=== PATIENT | male | born 1960 | race Caucasian/White ===

== ENCOUNTER 2020-08-03 07:28 | Outpatient (REF) | payer OTHER, SELFPAY ==
[2020-08-03 11:49] LABS: Alanine Aminotransferase 31 U/L (0-40); Albumin Level 4.6 g/dL (3.5-5.0); Alkaline Phosphatase 46 U/L (39-117); Anion Gap 11 (12-20); Aspartate Amino Transferase 26 U/L (5-37); Bilirubin Total 0.4 mg/dL (0.0-1.0); Blood Urea Nitrogen 14 mg/dL (9-16); Calcium 9.1 mg/dL (8.4-10.2); Carbon Dioxide 26 mmol/L (22-29); Chloride 107 mmol/L (96-108); Cholesterol 163 mg/dL; Estimated Glomerular Filt Rate > 60; Glucose Fasting 90 mg/dL (60-99); HDL Cholesterol 54 mg/dL; LDL Cholesterol Calculated 97 mg/dl; Potassium 4.6 mmol/l (3.3-5.1); Sodium 139 mmol/L (135-145); Triglycerides 64 mg/dL
[2020-08-03 12:12] LABS: Prostate Specific Antigen Scr 0.42 ng/mL (<0.05-4.0); TSH reflex Free T4 1.73 mIU/mL (0.32-4.0); Vitamin D 25-OH Total 38.9 ng/mL (>30)
== END 2020-08-03 07:29 | disposition home or self-care (01) ==
LOC: HO.HMGCLDS 07:28
PROVIDERS: PCP Nurse Practitioner Family; Visit Provider Nurse Practitioner Family
DX: Z12.5 Encounter for screening for malignant neoplasm of prostate (principal); E78.5 Hyperlipidemia, unspecified; I10 Essential (primary) hypertension; E55.9 Vitamin D deficiency, unspecified
CPT/HCPCS: 80053; 80061; 82306; 84153; 84443

== ENCOUNTER 2020-12-26 14:30 | Outpatient (REF) | payer OTHER, SELFPAY ==
--- NOTE | ~2020-12-26 | XR_ITS ---
EXAMINATION: XR HIP, RIGHT CLINICAL INFORMATION: Pain right hip. COMPARISON: None TECHNIQUE: Two views of the right hip. FINDINGS: There is loss of right hip joint space without any bony erosive changes. No visible fracture, dislocation or subluxation seen. No soft tissue abnormality. XR/XR hip RT min 2V IMPRESSION: Unremarkable right hip exam.
== END 2020-12-26 14:31 | disposition home or self-care (01) ==
LOC: HO.HMGCX 14:30
PROVIDERS: PCP Nurse Practitioner Family; Visit Provider Nurse Practitioner Family
DX: M25.551 Pain in right hip (principal)
CPT/HCPCS: 73502

== ENCOUNTER → 2021-01-09 10:23 | Outpatient (BNVA) | payer OTHER, SELFPAY | PROVIDERS: PCP Nurse Practitioner Family; Visit Provider Orthopaedic Surgery ==

== ENCOUNTER 2021-02-01 14:00 | Outpatient (RCR) | payer OTHER, SELFPAY | END 2021-02-19 12:44 | disposition other institution (70) | LOC: HO.PTWFD 14:00 | PROVIDERS: Visit Provider Nurse Practitioner Family | DX: M25.551 Pain in right hip (principal) | CPT/HCPCS: 97110; 97140; 97161; 97535 ==

== ENCOUNTER 2021-10-15 08:25 | Outpatient (REF) | payer OTHER, SELFPAY ==
[2021-10-15 12:00] LABS: COVID-19 Test Negative (Negative)
== END 2021-10-15 08:26 | disposition home or self-care (01) ==
LOC: HO.LAB 08:25
PROVIDERS: Visit Provider Internal Medicine
DX: Z20.822 Contact with and (suspected) exposure to COVID-19 (principal)
CPT/HCPCS: 36415; 87635; C9803

== ENCOUNTER 2022-01-23 11:09 | Outpatient (REF) | payer OTHER, SELFPAY ==
--- NOTE | ~2022-01-23 | XR_ITS ---
EXAMINATION: XR LUMBOSACRAL SPINE CLINICAL INFORMATION: Low back pain COMPARISON: None TECHNIQUE: Three views of the lumbosacral spine. FINDINGS: Bone alignment is normal. No fracture or dislocation is seen. There is degenerative spondylosis of the lower thoracic and upper lumbar spine. There is lower lumbar spine facet arthritis. Disc spaces are normal. Paraspinal soft tissues are normal. XR/XR lumbar spine 2-3V IMPRESSION: Degenerative changes.
--- NOTE | ~2022-01-23 | XR_ITS ---
EXAMINATION: XR SACROILIAC JOINTS CLINICAL INFORMATION: Sacrococcygeal disorders COMPARISON: None TECHNIQUE: 3 views of the sacroiliac joints FINDINGS: No fracture or dislocation. The sacroiliac joints are symmetric. No abnormal sclerosis. No fusion. The hips are well aligned. The visualized lumbar spine is appropriately aligned with small endplate osteophytes. XR/XR sacroiliac joint 1-2V IMPRESSION: Unremarkable appearance of the sacroiliac joints.
== END 2022-01-23 11:10 | disposition home or self-care (01) ==
LOC: HO.HMGCX 11:09
PROVIDERS: PCP Nurse Practitioner Family; Visit Provider Nurse Practitioner Family
DX: M53.3 Sacrococcygeal disorders, not elsewhere classified (principal); G89.29 Other chronic pain; M54.50 Low back pain, unspecified
CPT/HCPCS: 72100; 72200

== ENCOUNTER 2022-02-27 15:49 | Outpatient (REF) | payer OTHER, SELFPAY ==
--- NOTE | ~2022-02-27 | MR_ITS ---
EXAMINATION: MR LUMBAR SPINE WITHOUT CONTRAST CLINICAL INFORMATION: Right flank pain. Bilateral anterior thigh pain. COMPARISON: Lumbar spine radiographs 01/23/2022. TECHNIQUE: MRI of the lumbar spine was obtained using routine sequences without contrast. FINDINGS: Alignment is normal. Vertebral heights are preserved. No acute bone marrow signal changes. There is disc desiccation at multiple levels without substantial loss of intervertebral disc height. The tip of the conus medullaris is located at L1. No mass effect on the conus. Visualized distal cord signal intensity is normal. At L1-L2 there is a slightly bulging disc. No canal stenosis. No mass effect on the traversing or foraminal nerve roots. At L2-L3 there is a slightly bulging disc. Bilateral facet degenerative change. No canal stenosis. No mass effect on the traversing or foraminal nerve roots. At L3-L4 the annular contour is normal. No canal stenosis. No mass effect on the traversing or foraminal nerve roots. At L4-L5 there is a diffusely bulging disc. Bilateral facet degenerative change. No canal stenosis. Partial effacement of the perineural fat with no more than mild mass effect on both L4 foraminal nerve roots. At L5-S1 the annular contour is normal. No canal stenosis. No mass effect on the traversing or foraminal nerve roots. Limited visualization of the retroperitoneal anatomy reveals no abnormal finding. Psoas and paraspinal muscle groups are symmetric. MR/MR lumbar spine wo con IMPRESSION: There is mild disc degeneration at multiple levels within the lumbar spine. A bulging disc in conjunction with facet degenerative change at L4-L5 causes no more than mild mass effect on both L4 foraminal nerve roots. Otherwise no substantial mass effect on the traversing or foraminal nerve roots elsewhere within the lumbar spine. No canal stenosis.
--- NOTE | ~2022-02-27 | XR_ITS ---
EXAMINATION: XR BILATERAL HIPS WITH AP PELVIS CLINICAL INFORMATION: Bilateral hip pain. COMPARISON: Previous right hip x-ray December 2020 TECHNIQUE: AP view of the pelvis and 2 views of each hip were obtained. FINDINGS: Bone alignment is normal. No fracture or dislocation is seen. There is mild arthritis at both hip joints with small acetabular osteophytes. Bones of the pelvis are normal. Soft tissues are normal. No foreign body is seen. XR/XR hip BI w PEL1V IMPRESSION: Mild degenerative changes at the hip joints.
== END 2022-02-27 15:50 | disposition home or self-care (01) ==
LOC: HO.MRI 15:49
PROVIDERS: Absent Provider Nurse Practitioner Women's Health; PCP Nurse Practitioner Family; Visit Provider Nurse Practitioner Women's Health
DX: M54.16 Radiculopathy, lumbar region (principal); M25.551 Pain in right hip
CPT/HCPCS: 72148; 73521

== ENCOUNTER 2022-11-26 16:43 | Outpatient (REF) | payer OTHER, SELFPAY ==
--- NOTE | ~2022-11-26 | XR_ITS ---
EXAMINATION: XR ANKLE, RIGHT CLINICAL INFORMATION: Ankle sprain COMPARISON: None TECHNIQUE: AP, lateral, and mortise views of the right ankle. FINDINGS: There is a well-corticated density seen at the base of the fifth metatarsal which may be secondary to chronic injury at the the peroneus brevis tendon insertion at the fifth metatarsal. No acute fractures are seen. The ankle mortise is stable. Joint spaces are maintained. No joint effusion. XR/XR ankle RT min 3V IMPRESSION: No evidence of an acute injury. Chronic changes as described above.
== END 2022-11-26 16:44 | disposition home or self-care (01) ==
LOC: HO.HMGCX 16:43
PROVIDERS: PCP Nurse Practitioner Family; Visit Provider Internal Medicine
DX: S93.401A Sprain of unspecified ligament of right ankle, initial encounter (principal)
CPT/HCPCS: 73610

== ENCOUNTER 2023-03-18 14:07 | Outpatient (REF) | payer OTHER, SELFPAY ==
--- NOTE | ~2023-03-18 | MR_ITS ---
EXAMINATION: MRI ANKLE WITH CONTRAST, RIGHT CLINICAL INDICATION: Sprain of unspecified ligament of right ankle, initial encounter. Right ankle pain. Burning. S93.401A COMPARISON: Radiographs dated 11/26/2022 TECHNIQUE: Multiplanar MR imaging was obtained through the right ankle without contrast material on a 1.5 Anika magnet. FINDINGS: ACHILLES TENDON: Normal. OTHER TENDONS: A longitudinal tear of the peroneus brevis measures approximately 8 cm in length, extending from the lateral malleolus to the insertion on the 5th metatarsal base with severe distal tendinosis and wsfa-sj-koxhzatx tenosynovitis. A torn tendon flap fragment is evident at the level of the lateral malleolus. This tear involves at least one-third of the tendon cross-section. Peroneus longus is intact. Extensor and medial flexor tendons are normal. LIGAMENTS: There is mild thickening the calcaneofibular ligament, potentially due to a prior sprain. No discrete tears. Anterior talofibular, posterior talofibular, and distal tibiofibular ligaments are intact. The anterior and posterior tibiofibular ligaments appear thickened with subtle cortical irregularity at the fibular attachments, potentially the result of an old injury. No acute tibiofibular ligament tears. Deltoid and spring ligaments are normal. BONE AND ARTICULAR CARTILAGE: Small marginal osteophytes the talocrural joint. No osteochondral injuries. Articular cartilage appears relatively well-preserved at the talocrural, subtalar, and Chopart joints. No fracture or malalignment. No stress reactions. JOINT FLUID AND SOFT TISSUES: Mild subcutaneous edema at the ankle and hindfoot is most pronounced laterally. No joint effusions. PLANTAR FASCIA: Normal. SINUS TARSI AND TARSAL TUNNEL: Normal. MR/MR ankle RT wo con IMPRESSION: 1. Longitudinal tear of the peroneus brevis tendon with severe tendinosis and ssch-gt-gqrejqse tenosynovitis. 2. Mild thickening of the calcaneofibular ligament, potentially due to a prior sprain. No tears. 3. Minimal talocrural osteoarthritis.
== END 2023-03-18 14:08 | disposition home or self-care (01) ==
LOC: HO.MRI 14:07
PROVIDERS: PCP Nurse Practitioner Family; Visit Provider Nurse Practitioner Family
DX: S93.401A Sprain of unspecified ligament of right ankle, initial encounter (principal)
CPT/HCPCS: 73721

== ENCOUNTER 2023-06-02 16:33 | Outpatient (REF) | payer OTHER, SELFPAY ==
[2023-06-02 16:44] LABS: MANUAL DIFF FLAG NO
[2023-06-02 17:51] LABS: Basophils Percent Auto 0.6 % (0-2); Eosinophils Absolute Auto 0.1 X10*3/uL (0.0-0.4); Eosinophils Percent Auto 1.6 % (0-4); Hematocrit 42.2 % (42.0-52.0); Hemoglobin 14.1 g/dl (14.0-18.0); Imm Gran Abs Auto 0.06 X10*3/uL (0.00-0.03); Lymphocytes Absolute Auto 1.9 X10*3/uL (1.2-4.9); Lymphocytes Percent Auto 30.5 % (20-40); Mean Corpuscular HGB Conc 33.4 g/dl (31.0-36.0); Mean Corpuscular Hemoglobin 29.4 pg (27.0-33.0); Mean Corpuscular Volume 88.1 fL (80.0-98.0); Mean Platelet Volume 10.4 fL (9.4-12.4); Monocytes Absolute Auto 0.8 X10*3/uL (0.1-1.2); Monocytes Percent Auto 12.6 % (2-11); Neutrophils Absolute Auto 3.3 x10*3/uL (2.0-8.3); Neutrophils Percent Auto 53.7 % (45-73); Platelet Count 229 X10*3/uL (160-400); Red Blood Count 4.79 X10*6/uL (4.60-5.80); White Blood Count 6.2 X10*3/uL (4.8-10.8)
[2023-06-02 18:33] LABS: Alanine Aminotransferase 37 U/L (0-40); Albumin Level 4.7 g/dL (3.5-5.0); Alkaline Phosphatase 56 U/L (39-117); Anion Gap 12 (12-20); Aspartate Amino Transferase 31 U/L (5-37); Bilirubin Total 0.5 mg/dL (0.0-1.0); Blood Urea Nitrogen 13 mg/dL (9-16); Calcium 9.6 mg/dL (8.4-10.2); Carbon Dioxide 26 mmol/L (22-29); Chloride 106 mmol/L (96-108); Cholesterol 214 mg/dL; Estimated Glomerular Filt Rate > 60; Glucose Fasting 85 mg/dL (60-99); HDL Cholesterol 58 mg/dL; LDL Cholesterol Calculated 131 mg/dl; Potassium 4.1 mmol/L (3.3-5.1); Sodium 140 mmol/L (135-145); Total Protein 7.6 g/dL (6.5-8.0); Triglycerides 125 mg/dL
[2023-06-02 18:38] LABS: Appearance Urine Clear; Color Urine Yellow; Glucose Urine UA Negative (Negative); Leukocyte Esterase Urine Negative (Negative); Nitrite Urine Negative (Negative); PH 5.5 (5.0-9.0); Specific Gravity - Urine 1.025 (1.005-1.025); Urine Blood Negative (Negative); Urine Ketones Trace mg/dL (Negative); Urine Protein Trace mg/dL (Neg-Trace)
[2023-06-02 18:45] LABS: Prostate Specific Antigen Scr 0.54 ng/mL (<0.05-4.0)
[2023-06-02 18:47] LABS: TSH reflex Free T4 1.87 uIU/mL (0.32-4.0)
== END 2023-06-02 16:34 | disposition home or self-care (01) ==
LOC: HO.LAB 16:33
PROVIDERS: PCP Nurse Practitioner Family; Visit Provider Nurse Practitioner Family
DX: Z00.00 Encounter for general adult medical examination without abnormal findings (principal); Z12.5 Encounter for screening for malignant neoplasm of prostate; Z13.220 Encounter for screening for lipoid disorders; Z13.29 Encounter for screening for other suspected endocrine disorder; Z20.2 Contact with and (suspected) exposure to infections with a predominantly sexual mode of transmission
CPT/HCPCS: 36415; 80053; 80061; 81003; 84153; 84443; 85025

== ENCOUNTER 2023-06-05 15:54 | Outpatient (AMB) | payer OTHER, SELFPAY ==
[2023-06-05 16:03] VITALS: BP 120/74; PULSE 66; O2SAT 96; BMI 32.1
--- NOTE | 2023-06-05 16:03 | MHC.PC.OV ---
Vital Signs 06/05/23 16:03 Height 5 ft 11 in Weight 230 lb 8 oz BMI 32.1 BP 120/74 Blood Pressure Location Rt brachial Position Sitting Pulse 66 Pulse Source Pulse Oximeter Pulse Oximetry (%) 96 Oxygen Delivery Method Room Air Intake Visit Reasons: PE Allergies SEASONAL ALLERGIES Allergy (Mild, Uncoded 06/05/23 16:05) SNEEZING,ITCHY EYES Tobacco use date assessed: 06/05/23 Dental Screening Dental Screen Date: 06/05/23 Did you have a dental visit in the last 12 months?: Yes Did you have a dental problem in the last 6 months where you did not have access to dental care?: No Was dental information given to patient?: Patient has dentist HPI PE HPI Details Pt is here for a PE. Labs were already performed. PSA is up to date. Colon screen is up to date. reports left shoulder pain, limited mobility. [facility] Surgical History History of colonoscopy History of knee surgery Family History Father HTN (hypertension) CVD (cardiovascular disease) Diabetes mellitus Cancer Substance use disorder Mother Diabetes mellitus CVD (cardiovascular disease) HTN (hypertension) Cancer Other Mental health disorder Social History (Reviewed 02/24/23 @ 17:19 by Josh Bazan [facility]) Housing: House Alcohol intake: current Alcohol intake frequency: a few times a month Patient Tobacco Use Status: Never used Tobacco e-Cigarette/Vaping Use: Never Used Second Hand Smoke Exposure: No service: Yes Current occupational status: employed 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 Adrien Olguin, Mable Jason, Suman Ovalle and colleagues, with an educational tom from [employer]. Review of Systems Const Denies chills and Denies fever(s) Eyes Denies blurry vision ENT Denies vertigo, Denies dizziness and Denies sore throat Card Denies chest pain at rest, Denies chest pain with activity, Denies diaphoresis, Denies dyspnea and Denies dyspnea on exertion Resp Denies cough, Denies dyspnea, Denies dyspnea on exertion and Denies wheezing GI Denies abdominal pain, Denies melena, Denies hematochezia, Denies constipation, Denies diarrhea and Denies loose stools Denies hematuria Musc Denies numbness and Denies tingling Skin/Breast Denies lesions Neuro Denies vertigo, Denies dizziness, Denies numbness and Denies tingling Psych Denies anxiety, Denies depression, Denies homicidal ideation, Denies suicidal ideation and Denies other (substance abuse) Aller/Immun Denies wheezing Physical exam (Primary Care) Vital Signs: Last Vital Signs Pulse 66 06/05/23 16:03 BP 120/74 06/05/23 16:03 Pulse Ox 96 06/05/23 16:03 Oxygen Delivery Method Room Air 06/05/23 16:03 BMI result Body Mass Index 32.1 Tobacco/Smoking Status: Tobacco use Status Tobacco use date assessed 06/05/23 06/05/23 16:09 Patient Tobacco Use Status Never used Tobacco 06/05/23 16:09 e-Cigarette/Vaping Use Never Used 06/05/23 16:09 Thrive Assessment: Date of Thrive Assessment Date Thrive assessed 01/23/22 06/05/23 16:09 Const General: cooperative Nutritional Appearance: obese Orientation/consciousness: patient oriented x3 HENMT Head: Yes normal to inspection, Yes normocephalic and Yes atraumatic Ears: TM's normal bilaterally Eyes General: appearance normal, both eyes and all related structures Alignment and Position: alignment normal and position normal Neck Neck: Yes normal visual inspection and Yes no lymphadenopathy Thyroid: Thyroid normal Resp Effort & Inspection: normal respiratory effort Auscultation: clear to auscultation bilaterally Cardio Rate: regular rate Rhythm: regular rhythm Heart sounds: S1 normal heart sound present, S2 normal heart sound present and no murmurs GI Palpation (GI): Soft to palpation and nontender Auscultation: normal bowel sounds Other: raza: no nodules, did not feel enlarged, palpable central groove, smooth Male General Exam: Yes normal external exam Penis: normal penis Scrotum: scrotum normal, testes descended bilaterally and no inguinal hernias Testes: no testicular mass Skin Rashes: no rashes Neuro General: patient oriented x3, moves all extremities, no focal motor deficits and deep tendon reflexes 2+ bilaterally Romberg Test: Negative Extrem Other: + neers, +puente, + jobes, + drop arm test (left shoulder) Psych Appearance: grossly normal Mental Status: mental status grossly normal Speech and movement: Normal speech and movement present Affect: normal affect Attitude: cooperative Thought process: Normal thought process present Thought content: Normal thought content present Insight: Good insight present (Psych) Judgement: Good judgement present (Psych) Assessment and Plan Assessment & Plan (1) Physical exam: Code(s): Z00.00 - Encounter for general adult medical examination without abnormal findings (2) Left shoulder pain: Code(s): M25.512 - Pain in left shoulder Plan The patient agreed to the use of a medical chief technician for this encounter. Scribed for MAGALI Caceres- by Jeri Booth medical chief technician, on 06/05/2023 at 16:40 EST. Orders: Orders XR shoulder LT min 2V Today M25.512 - Pain in left shoulder AMB EKG-In Office Today Z00.00 - Encounter for general adult medical examination without abnormal findings Referrals Orthopedics Referral M25.512 - Pain in left shoulder Medications: Changed From simvastatin 5 mg PO DAILY 90 days 90 tabs 2RF To simvastatin 10 mg PO DAILY 90 tabs 2RF 90 days Coding Level of Care Code Est Pt Prev Care 40-64y(08026) Diagnoses Physical exam Z00.00 Left shoulder pain M25.512
== END 2023-06-05 17:21 | disposition home or self-care (01) ==
PROVIDERS: PCP Nurse Practitioner Family; Visit Provider Nurse Practitioner Family
DX: Z00.00 Encounter for general adult medical examination without abnormal findings (principal); M25.512 Pain in left shoulder
CPT/HCPCS: 99396

== ENCOUNTER 2023-06-10 15:50 | Outpatient (REF) | payer OTHER, SELFPAY ==
--- NOTE | ~2023-06-10 | XR_ITS ---
EXAMINATION: XR SHOULDER, LEFT CLINICAL INFORMATION: Left shoulder pain COMPARISON: None available. TECHNIQUE: AP external rotation, Grashey, scapular Y, and axillary views of the left shoulder. FINDINGS: Degenerative type changes identified acromioclavicular and glenohumeral joints. No fracture, dislocation or abnormal calcifications. Visualized lung and ribs are unremarkable. XR/XR shoulder LT min 2V IMPRESSION: Degenerative changes. No acute bony pathology.
== END 2023-06-10 15:51 | disposition home or self-care (01) ==
LOC: HO.HMGCX 15:50
PROVIDERS: PCP Nurse Practitioner Family; Visit Provider Nurse Practitioner Family
DX: M25.512 Pain in left shoulder (principal)
CPT/HCPCS: 73030

== ENCOUNTER 2023-06-27 08:18 | Outpatient (AMB) | payer OTHER, SELFPAY ==
[2023-06-27 08:27] VITALS: BMI 32.1
--- NOTE | 2023-06-27 08:27 | A.OFFVIS_ITS ---
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 The patient states that he 1st into shoulder approximately 2 years ago. He was lifting a heavy object when he felt acute onset of pain. Since that time he has had difficulty lifting his left hand above shoulder height. He has done physical therapy for 12 weeks over the last 6 months which aggravated his pain. He has also tried Tylenol and anti- inflammatory medicines which gave him minimal relief. He has had injections in the past which gave him no relief. Allergies SEASONAL ALLERGIES Allergy (Mild, Uncoded 06/27/23 08:34) SNEEZING,ITCHY EYES Medication List - Last Reviewed 06/27/23 by SARA Goodwin amlodipine 10 mg PO DAILY simvastatin 10 mg PO DAILY 90 days zinc gluconate 30 mg PO DAILY PFSH Surgical History History of colonoscopy History of knee surgery Family History Father HTN (hypertension) CVD (cardiovascular disease) Diabetes mellitus Cancer Substance use disorder Mother Diabetes mellitus CVD (cardiovascular disease) HTN (hypertension) Cancer Other Mental health disorder Social History (Updated 06/27/23 @ 08:35 by SARA Goodwin) Housing: House Alcohol intake: current Alcohol intake frequency: a few times a month Patient Tobacco Use Status: Never used Tobacco e-Cigarette/Vaping Use: Never Used Second Hand Smoke Exposure: No service: Yes Current occupational status: employed 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 Current occupational exposures/hazards: No Cognitive needs: No Hearing needs: No Vision needs: No Physical Exam Vital Signs: BMI result Body Mass Index 32.1 Const Other: Well-nourished well-developed very friendly male awake alert and oriented x3 in no acute distress Extrem Other: Bilateral upper extremity examination shows good capillary refill, no skin lesions noted, normal sensation light touch Left shoulder examination shows decreased active range of motion but almost full passive range of motion when compared to his right shoulder, 4/5 strength with supraspinatus testing, positive impingement signs, tenderness over his acromioclavicular joint, no instability Results Reviewed Results Reviewed: X-rays of the patient's left shoulder show severe acromioclavicular joint narrowing, a type 3 acromion, no acute bony abnormalities Assessment & Plan Assessment & Plan (1) Complete rotator cuff tear of left shoulder: Code(s): M75.122 - Complete rotator cuff tear or rupture of left shoulder, not specified as traumatic Plan: Mr. Mosley presents with progressively worsening left shoulder pain and weakness most likely due to full-thickness rotator cuff tearing. Thus, I will send the patient for an MRI of his left shoulder to further evaluate the status of his rotator cuff tendons. If he does have a full-thickness tear I will recommend surgical repair to optimize his future functional level. I will contact him by phone once the MRI is completed. He will continue with his home stretching program in the meantime to prevent stiffness. Feel free to call me at any time should questions regarding his orthopedic management arise. Thank you very much for asking me to see this very kind gentleman. I spent 22 minutes in reviewing the patient's records and imaging studies, seeing the patient and documenting in the medical record. Orders: Orders MR shoulder LT wo con Today M75.122 - Complete rotator cuff tear or rupture of left shoulder, not specified as traumatic Coding Level of Care Code New Pt Level 2 (90626) Diagnoses Complete rotator cuff tear of left shoulder M75.122
--- NOTE | 2023-06-27 08:27 | MHC.OFFVIS ---
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 Mosley is a 62-year-old wocig-zgga-jlhysjsr male who presents with complaints of progressively worsening left shoulder pain and weakness. The patient states that he injury shoulder approximately 2 years ago when he was lifting a heavy object. Patient had acute onset of pain along the lateral aspect of his left shoulder. Since that time he has had difficulty lifting his left hand above shoulder height. He has done physical therapy for 12 weeks over the last 6 months which aggravated his pain. He has also tried Tylenol and anti-inflammatory medicines which gave him minimal relief. The patient has had cortisone injections in the past which gave him no relief. Allergies SEASONAL ALLERGIES Allergy (Mild, Uncoded 06/27/23 08:34) SNEEZING,ITCHY EYES Medication List - Last Reviewed 06/27/23 by SARA Goodwin amlodipine 10 mg PO DAILY simvastatin 10 mg PO DAILY 90 days zinc gluconate 30 mg PO DAILY PFSH Surgical History History of colonoscopy History of knee surgery Family History Father HTN (hypertension) CVD (cardiovascular disease) Diabetes mellitus Cancer Substance use disorder Mother Diabetes mellitus CVD (cardiovascular disease) HTN (hypertension) Cancer Other Mental health disorder Social History (Updated 06/27/23 @ 08:35 by SARA Goodwin) Housing: House Alcohol intake: current Alcohol intake frequency: a few times a month Patient Tobacco Use Status: Never used Tobacco e-Cigarette/Vaping Use: Never Used Second Hand Smoke Exposure: No service: Yes Current occupational status: employed 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 Current occupational exposures/hazards: No Cognitive needs: No Hearing needs: No Vision needs: No Physical Exam Vital Signs: BMI result Body Mass Index 32.1 Const Other: Well-nourished well-developed very friendly male awake alert and oriented x3 in no acute distress Extrem Other: Bilateral upper extremity examination shows good capillary refill, no skin lesions noted, normal sensation light touch Left shoulder examination shows decreased active range of motion but almost full passive range of motion when compared to his right shoulder, 4/5 strength with supraspinatus testing, positive impingement signs, tenderness over his acromioclavicular joint Results Reviewed Results Reviewed: X-rays of the patient's left shoulder show severe acromioclavicular joint narrowing, type 3 acromion, no acute bony abnormalities Assessment & Plan Assessment & Plan (1) Impingement syndrome of left shoulder: Code(s): M75.42 - Impingement syndrome of left shoulder Plan: Mr. Mosley presents with left shoulder pain and weakness most likely due to a full-thickness rotator cuff tear. Thus, I will send the patient for MRI of his left shoulder for further evaluation. If he does have a full-thickness tear I will recommend surgical repair to optimize his future functional level. The patient will continue with gentle range of motion exercises in the meantime to prevent stiffness. I will contact him by phone once the MRI results are available. Feel free to call me at any time should questions regarding his orthopedic management arise. Thank you very much for asking me to see this very friendly gentleman. I spent 22 minutes in reviewing the patient's records and imaging studies, seeing the patient and documenting in the medical record. Orders: Orders MR shoulder LT wo con Today M75.122 - Complete rotator cuff tear or rupture of left shoulder, not specified as traumatic Coding Level of Care Code New Pt Level 2 (42896) Diagnoses Impingement syndrome of left shoulder M75.42
== END 2023-06-27 09:05 | disposition home or self-care (01) ==
PROVIDERS: PCP Nurse Practitioner Family; Visit Provider Orthopaedic Surgery
DX: M75.122 Complete rotator cuff tear or rupture of left shoulder, not specified as traumatic (principal); M75.42 Impingement syndrome of left shoulder
CPT/HCPCS: 99214

== ENCOUNTER → 2023-06-27 08:18 | Outpatient (BNVA) | payer OTHER, SELFPAY | PROVIDERS: PCP Nurse Practitioner Family; Visit Provider Orthopaedic Surgery ==

== ENCOUNTER 2023-06-28 14:33 | Outpatient (REF) | payer OTHER, SELFPAY ==
--- NOTE | ~2023-06-28 | MR_ITS ---
EXAMINATION: MRI LEFT SHOULDER WITHOUT CONTRAST CLINICAL INFORMATION: Complete rotator cuff tear or rupture. Left shoulder pain, severe. Decreased range of motion. COMPARISON: Radiograph dated 06/10/2023. TECHNIQUE: MR images of the shoulder were obtained on a 1.5 Anika high-field strength scanner without intravenous contrast material. FINDINGS: ROTATOR CUFF: Mild supraspinatus, infraspinatus, and subscapularis tendinosis. There is a small 3 mm focus of low signal intensity at the bursal-sided fibers of the supraspinatus tendon at the insertion, consistent with calcific tendinitis. Undersurface fraying is present at the subscapularis tendon insertion without a discrete tear. No muscle atrophy or fatty infiltration. BICEPS: Normal. CORACOACROMIAL ARCH: The undersurface of the acromion is curved with no subacromial spur. Moderate acromioclavicular osteoarthritis. No significant subacromial subdeltoid bursal fluid. LABRUM/CAPSULE: Glenoid labrum is diminutive posteriorly and inferiorly, likely due to a combination of developmental variation and superimposed labral degeneration. Joint capsule is intact. GLENOHUMERAL JOINT/MARROW: No fracture or malalignment. Mild chondral thinning along the glenoid rim posteriorly and inferiorly with minimal subchondral edema. No fracture or malalignment. Subcortical cystic change and cortical irregularity are evident at the lesser tuberosity along its cephalad margin, likely reactive to the underlying subscapularis tendinopathy. Additional cortical irregularity is present at the greater tuberosity posteriorly. MR/MR shoulder LT wo con IMPRESSION: 1. Mild rotator cuff tendinosis with a small 3 mm focus of calcific tendinitis at the supraspinatus tendon insertion. No rotator cuff tears. 2. Moderate acromioclavicular and mild glenohumeral osteoarthritis.
== END 2023-06-28 14:34 | disposition home or self-care (01) ==
LOC: HO.MRI 14:33
PROVIDERS: Visit Provider Orthopaedic Surgery
DX: M75.122 Complete rotator cuff tear or rupture of left shoulder, not specified as traumatic (principal)
CPT/HCPCS: 73221

== ENCOUNTER 2023-08-25 09:50 | Outpatient (REF) | payer OTHER, SELFPAY ==
[2023-08-25 11:13] LABS: Anion Gap 13 (12-20); Carbon Dioxide 24 mmol/L (22-29); Chloride 108 mmol/L (96-108); Potassium 4.8 mmol/L (3.3-5.1); Sodium 140 mmol/L (135-145)
== END 2023-08-25 09:51 | disposition home or self-care (01) ==
LOC: HO.LAB 09:50
PROVIDERS: PCP Nurse Practitioner Family; Visit Provider Orthopaedic Surgery
DX: I10 Essential (primary) hypertension (principal)
CPT/HCPCS: 36415; 80051

== ENCOUNTER 2023-12-23 15:09 | Outpatient (AMB) | payer OTHER, SELFPAY ==
[2023-12-23 15:10] VITALS: BMI 32.1
--- NOTE | 2023-12-23 15:10 | A.OFFVIS_ITS ---
Intake Vital Signs 12/23/23 15:10 Height 5 ft 11 in Weight 230 lb BMI 32.1 Intake Visit Reasons: OV left shoulder injury Intake Note: Deep is a 63 year old male who presents with Left shoulder pain from and injury on 04/26/2022. The patient describes his pain as sharp in nature. He reports mild weakness when lifting his left hand above shoulder height. Has had injections in the past which gave him fairly good relief. He would like to hold off on surgery for as long as possible. He has done physical therapy exercises which aggravated his pain. He has also tried Tylenol and anti-inflammatory medicines which gave him minimal relief. Allergies SEASONAL ALLERGIES Allergy (Mild, Uncoded 06/27/23 08:34) SNEEZING,ITCHY EYES Medication List - Last Reconciled 12/23/23 by Deion Mcdaniel MD amlodipine 10 mg PO DAILY 90 days simvastatin 10 mg PO DAILY 90 days zinc gluconate 30 mg PO DAILY PFSH Surgical History History of colonoscopy History of knee surgery Family History Father HTN (hypertension) CVD (cardiovascular disease) Diabetes mellitus Cancer Substance use disorder Mother Diabetes mellitus CVD (cardiovascular disease) HTN (hypertension) Cancer Other Mental health disorder Social History Housing: House Alcohol intake: current Alcohol intake frequency: a few times a month Patient Tobacco Use Status: Never used Tobacco e-Cigarette/Vaping Use: Never Used Second Hand Smoke Exposure: No service: Yes Current occupational status: employed 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 Current occupational exposures/hazards: No Cognitive needs: No Hearing needs: No Vision needs: No Physical Exam Vital Signs: BMI result Body Mass Index 32.1 Const Other: Well-nourished well-developed very friendly male awake alert and oriented x3 in no acute distress Extrem Other: Bilateral upper extremity examination shows good capillary refill, no skin lesions noted, normal sensation light touch Left shoulder examination shows slightly decreased range of motion when compared to his right shoulder, 4+ out of 5 strength with supraspinatus testing, positive impingement signs, tenderness over his acromioclavicular joint, no instability Office Procedures Joint Injection/Drain Joint Injection/Drain Primary Site: left shoulder Prep: site was prepped using aseptic technique Injected: 40 mg of, DepoMedrol and 1% plain lidocaine Procedure: The patient tolerated the procedure well Coding 18641 - Large joint Procedure code (CPT) selection complete Assessment & Plan Assessment & Plan (1) Impingement syndrome of left shoulder: Code(s): M75.42 - Impingement syndrome of left shoulder Plan Mr. Mosley presents with left shoulder pain due to impingement syndrome, acromioclavicular joint arthritis and rotator cuff tendinosis versus a small tear. I had a lengthy discussion with the patient regarding the treatment options. The risks and benefits of a left shoulder cortisone injection were discussed at length with the patient. The patient wished to proceed with the injection. He tolerated the injection well. He will continue with his activity modifications. He will follow up with me on an as-needed basis should his symptoms not plateau at an unacceptable level over the next few months. If he fails continued non operative treatments we will further discuss the risks and benefits of left shoulder surgery. Feel free to call me at any time should questions regarding his orthopedic management arise. I spent 22 minutes in reviewing the patient's records and imaging studies, seeing the patient and documenting in the medical record. Orders: Orders AMB Joint Injection/Aspiration Today M75.42 - Impingement syndrome of left shoulder Coding Level of Care Code Est Pt Level 2 (34908) Diagnoses Impingement syndrome of left shoulder M75.42 CPT Codes Coding - 54518 Large joint: 61513 - Large joint ([id number])
== END 2023-12-23 15:38 | disposition home or self-care (01) ==
PROVIDERS: PCP Nurse Practitioner Family; Visit Provider Orthopaedic Surgery
DX: M75.42 Impingement syndrome of left shoulder (principal)
CPT/HCPCS: 20610; 99213

== ENCOUNTER → 2023-12-23 15:09 | Outpatient (BNVA) | payer OTHER, SELFPAY | PROVIDERS: PCP Nurse Practitioner Family; Visit Provider Orthopaedic Surgery | DX: M75.42 Impingement syndrome of left shoulder (principal) | CPT/HCPCS: 20610; J1020 ==

== ENCOUNTER 2024-01-21 16:00 | Outpatient (RCR) | payer OTHER, SELFPAY | END 2024-04-28 12:39 | disposition home or self-care (01) | LOC: HO.PT 16:00 | PROVIDERS: PCP Nurse Practitioner Family; Visit Provider Orthopaedic Surgery | DX: Z98.890 Other specified postprocedural states (principal) | CPT/HCPCS: 97110; 97112; 97140; 97161; 97530 ==

== ENCOUNTER 2024-03-23 14:17 | Outpatient (AMB) | payer OTHER, SELFPAY ==
[2024-03-23 14:20] VITALS: BMI 32.1
--- NOTE | 2024-03-23 14:20 | A.OFFVIS_ITS ---
Vital Signs 03/23/24 14:20 Height 5 ft 11 in Weight 230 lb BMI 32.1 Intake Visit Reasons: ov- Left shoulder injury DOI 04/26/2022 Intake Note: Deep is a 63 year old Right hand dominant male who presents with complaints of left shoulder pain. He did have a cortisone injection given into his left shoulder earlier this year. He got fairly good relief from that injection. He continues with his home exercise program. He would like to hold off on surgery for now. He denies any weakness. He has tried Tylenol and anti-inflammatory medicines which gave him minimal relief. Allergies SEASONAL ALLERGIES Allergy (Mild, Uncoded 03/23/24 14:25) SNEEZING,ITCHY EYES Medication List - Last Reconciled 03/24/24 by Deion Mcdaniel MD amlodipine 10 mg PO DAILY 90 days simvastatin 10 mg PO DAILY 90 days zinc gluconate 30 mg PO DAILY PFS Surgical History History of colonoscopy History of knee surgery Family History Father HTN (hypertension) CVD (cardiovascular disease) Diabetes mellitus Cancer Substance use disorder Mother Diabetes mellitus CVD (cardiovascular disease) HTN (hypertension) Cancer Other Mental health disorder Social History Housing: House Alcohol intake: current Alcohol intake frequency: a few times a month Patient Tobacco Use Status: Never used Tobacco e-Cigarette/Vaping Use: Never Used Second Hand Smoke Exposure: No service: Yes Current occupational status: employed 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 Current occupational exposures/hazards: No Cognitive needs: No Hearing needs: No Vision needs: No Physical Exam Vital Signs: BMI result Body Mass Index 32.1 Const Other: Well-nourished well-developed very friendly male awake alert and oriented x3 in no acute distress Extrem Other: Bilateral upper extremity examination shows good capillary refill, no skin lesions noted, normal sensation light touch Left shoulder examination shows slightly decreased range of motion when compared to his right shoulder, 4+ out of 5 strength with supraspinatus testing, positive impingement signs, tenderness over his acromioclavicular joint, no instability Office Procedures Joint Injection/Drain Joint Injection/Drain Primary Site: left shoulder Prep: site was prepped using aseptic technique Injected: 40 mg of, DepoMedrol and 1% plain lidocaine Procedure: The patient tolerated the procedure well Coding 20439 - Large joint Procedure code (CPT) selection complete Assessment & Plan Assessment & Plan (1) Impingement syndrome of left shoulder: Code(s): M75.42 - Impingement syndrome of left shoulder Category: Medical Plan Mr. Mosley presents with left shoulder pain due to impingement syndrome, acromioclavicular joint arthritis and rotator cuff tendinosis versus a small rotator cuff tear. I had a lengthy discussion with the patient regarding the treatment options. The risks and benefits of a left shoulder cortisone injec tion were discussed at length with the patient. The patient wished to proceed with the injection. He tolerated the injection well. He will continue with his home stretching program to prevent stiffness. He will contact me prior to his follow-up appointment in 3 months should any questions or concerns arise. Feel free to call me at any time should questions regarding his orthopedic management arise. I spent 22 minutes in reviewing the patient's records and imaging studies, seeing the patient and documenting in the medical record. Orders: Orders AMB Joint Injection/Aspiration 03/23/24 M75.42 - Impingement syndrome of left shoulder Coding Level of Care Code Est Pt Level 3 (85468) Diagnoses Impingement syndrome of left shoulder M75.42 CPT Codes Coding - 32558 Large joint: 16806 - Large joint ([id number])
== END 2024-03-23 14:45 | disposition home or self-care (01) ==
PROVIDERS: PCP Nurse Practitioner Family; Visit Provider Orthopaedic Surgery
DX: M75.42 Impingement syndrome of left shoulder (principal)
CPT/HCPCS: 20610; 99213

== ENCOUNTER → 2024-03-23 14:17 | Outpatient (BNVA) | payer OTHER, SELFPAY | PROVIDERS: PCP Nurse Practitioner Family; Visit Provider Orthopaedic Surgery | DX: M75.42 Impingement syndrome of left shoulder (principal) | CPT/HCPCS: 20610; J1010 ==

== ENCOUNTER 2024-06-15 08:34 | Outpatient (AMB) | payer OTHER, SELFPAY ==
--- NOTE | 2024-06-15 08:35 | A.OFFPC_ITS ---
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 Required: No Accompanied by: Self / Same As Patient Allergies SEASONAL ALLERGIES Allergy (Mild, Uncoded 06/15/24 10:44) SNEEZING,ITCHY EYES Medication List - Last Reconciled 06/15/24 by ANIKET Penn amlodipine 10 mg PO DAILY 90 days simvastatin 10 mg PO DAILY 90 days tamsulosin 0.4 mg PO BEDTIME zinc gluconate 30 mg PO DAILY Tobacco use date assessed: 06/15/24 Dental Screening Dental Screen Date: 06/15/24 Did you have a dental visit in the last 12 months?: Yes Did you have a dental problem in the last 6 months where you did not have access to dental care?: No Was dental information given to patient?: Patient has dentist HPI Annual HPI Details Pt is here for a PE. Colon screen is up to date. Last August had extensive right foot surg, going back in for hardware removal. Pt does report frequent urination (nocturia). pt reports feeling like he emptying his bladder completely after urination, denies a weak stream, except at night. [facility] Surgical History History of foot surgery History of colonoscopy History of knee surgery Family History Father HTN (hypertension) CVD (cardiovascular disease) Diabetes mellitus Cancer Substance use disorder Mother Diabetes mellitus CVD (cardiovascular disease) HTN (hypertension) Cancer Other Mental health disorder Social History Housing: House Alcohol intake: current Alcohol intake frequency: a few times a month Patient Tobacco Use Status: Never used Tobacco e-Cigarette/Vaping Use: Never Used Second Hand Smoke Exposure: No service: Yes Current occupational status: employed 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 1. Little interest or pleasure in doing things: not at all 2. Feeling down, depressed, or hopeless: not at all 3. Trouble falling or staying asleep, or sleeping too much: not at all 4. Feeling tired or having little energy: not at all 5. Poor appetite or overeating: not at all 6. Feeling bad about yourself - or that you are a failure or have let yourself or your family down: not at all 7. Trouble concentrating on things, such as reading the newspaper or watching television: not at all 8. Moving or speaking so slowly that other people could have noticed. Or the opposite - being so fidgety or restless that you have been moving around a lot more than usual: not at all 9. Thoughts that you would be better off or of hurting yourself in some way: not at all Total score: 0 Depression Screening Interpretation: Negative Depression Screening Done: Yes 42807 - PHQ-9 Billing: Yes Source: Developed by Drs. Adrien Olguin, Mable Jason, Suman Ovalle and colleagues, with an educational tom from [employer]. Thrive Questionnaire Date Thrive assessed: 06/15/24 I am a: Patient What is your living situation today?: I have a steady place to live Within the past 12 months, did the food you bought not last and you didn't have the money to get more?: Never true Within the past 12 months, did you worry whether your food would run out before you got money to buy more?: Never true Do you have trouble paying for medicines?: No Do you have trouble getting transportation to medical appointments?: No Do you have trouble paying your heating and electricity bill?: No Do you have trouble taking care of your child, family member or friend?: No Do you have trouble with day-to-day activities such as bathing, preparing meals, shopping, managing finances, etc.?: No Are you currently unemployed and looking for a job?: No Are you interested in more education?: No Please select the resources that you would like help with: None Currently or been in a relationship where the following occur: I choose not to answer THRIVE Score: 0 AUDIT C Alcohol Use Questionnaire (AUDIT-C) 1. How often do you have a drink containing alcohol?: 2-4 times a month 2. How many drinks containing alcohol do you have on a typical day when you are drinking?: 3 or 4 3. How often do you have six or more drinks on one occasion?: Less than monthly Total Score: 4 Score Reviewed/Action Taken: Yes SIDDHARTHA-7 AMB Questionnaire SIDDHARTHA-7 Date SIDDHARTHA - 7 assessed: 06/15/24 Feeling nervous, anxious, or on edge: 0 = Not at all Not being able to stop or control worryin = Not at all Worrying too much about different things: 0 = Not at all Trouble relaxin = Not at all Being so restless that it is hard to sit still: 0 = Not at all Becoming easily annoyed or irritable: 0 = Not at all Feeling afraid as if something awful might happen: 0 = Not at all Total SIDDHARTHA-7 score (0-4 normal; 5-9 mild; 10-14 moderate; 15-21 severe): 0 Source: Developed by Drs. Adrien Olguin, Mable Jason, Suman Ovalle and colleagues, with an educational tom from [employer]. SIDDHARTHA-7 Assessment Billing SIDDHARTHA-7 Assessment Tool: SIDDHARTHA-7 Assessment 33764 Review of Systems Const Denies chills and Denies fever(s) Eyes Denies blurry vision ENT Denies vertigo, Denies dizziness and Denies sore throat Card Denies chest pain at rest, Denies chest pain with activity, Denies diaphoresis, Denies dyspnea and Denies dyspnea on exertion Resp Denies cough, Denies dyspnea, Denies dyspnea on exertion and Denies wheezing GI Denies abdominal pain, Denies melena, Denies hematochezia, Denies constipation, Denies diarrhea and Denies loose stools Denies hematuria Musc Denies numbness and Denies tingling Skin/Breast Denies lesions Neuro Denies vertigo, Denies dizziness, Denies numbness and Denies tingling Psych Denies anxiety, Denies depression, Denies homicidal ideation, Denies suicidal ideation and Denies other (substance abuse) Aller/Immun Denies wheezing Physical exam (Primary Care) Vital Signs: Last Vital Signs Pulse 71 06/15/24 08:38 BP 122/70 06/15/24 08:38 Pulse Ox 97 06/15/24 08:38 Oxygen Delivery Method Room Air 06/15/24 08:38 BMI result Body Mass Index 32.4 Tobacco/Smoking Status: Tobacco use Status Tobacco use date assessed 06/15/24 06/15/24 08:39 Patient Tobacco Use Status Never used Tobacco 06/15/24 08:37 e-Cigarette/Vaping Use Never Used 06/15/24 08:37 PHQ-9: PHQ-9 Score PHQ-9: Total score 0 06/15/24 08:39 Depression Screening Interpretation: Negative Thrive Assessment: Date of Thrive Assessment Date Thrive assessed 06/15/24 06/15/24 08:39 Currently or been in a relationship where the following occur: I choose not to answer Const General: cooperative Nutritional Appearance: well nourished Orientation/consciousness: patient oriented x3 HENMT Head: Yes normal to inspection, Yes normocephalic and Yes atraumatic Ears: TM normal on the right and TM normal on the left Eyes General: appearance normal, both eyes and all related structures Alignment and Position: alignment normal and position normal Neck Neck: Yes normal visual inspection and Yes no lymphadenopathy Resp Effort & Inspection: normal respiratory effort Auscultation: clear to auscultation bilaterally Cardio Rate: regular rate Rhythm: regular rhythm Heart sounds: S1 normal heart sound present, S2 normal heart sound present and no murmurs GI Palpation (GI): Soft to palpation and nontender Auscultation: normal bowel sounds Other: ERLIN: indurated, slightly enlarged, central groove smooth, no nodules palpated Male General Exam: Yes normal external exam Penis: normal penis Scrotum: scrotum normal, testes descended bilaterally and no inguinal hernias Testes: no testicular mass Skin Rashes: no rashes Neuro General: patient oriented x3, moves all extremities, no focal motor deficits and deep tendon reflexes 2+ bilaterally Romberg Test: Negative Extrem Right lower extremity: edema (trace to right ankle) Left lower extremity: no edema Psych Affect: normal affect Attitude: cooperative Thought process: Normal thought process present Assessment and Plan Assessment & Plan (1) Physical exam: Code(s): Z00.00 - Encounter for general adult medical examination without abnormal findings Plan: labs ordered (2) Screening for prostate cancer: Code(s): Z12.5 - Encounter for screening for malignant neoplasm of prostate Plan: lab (3) Nocturia: Code(s): R35.1 - Nocturia Plan: starting tamsulosin and referring to urology Orders: Orders Complete Blood Count Auto Diff Today Z00.00 - Encounter for general adult medical examination without abnormal findings Comprehensive [place]. Panel Fast Today Z00.00 - Encounter for general adult medical examination without abnormal findings Lipid Panel Today Z00.00 - Encounter for general adult medical examination without abnormal findings TSH reflex Free T4 Today Z00.00 - Encounter for general adult medical examination without abnormal findings UA CC w/rflx Micro + Cult Today Z00.00 - Encounter for general adult medical examination without abnormal findings Prostate Specific Antigen Scr Today Z12.5 - Encounter for screening for malignant neoplasm of prostate Referrals Urology Referral R35.1 - Nocturia Medications: New tamsulosin 0.4 mg PO BEDTIME 90 caps 0RF Coding Level of Care Code Est Pt Prev Care 40-64y(49552) Diagnoses Physical exam Z00.00 Screening for prostate cancer Z12.5 Nocturia R35.1 Additional Codes SIDDHARTHA-7 Assessment Billing - SIDDHARTHA-7 Assessment Tool: SIDDHARTHA-7 Assessment 43145 ([id number])
[2024-06-15 08:38] VITALS: BP 122/70; PULSE 71; O2SAT 97; BMI 32.4
== END 2024-06-15 09:30 | disposition home or self-care (01) ==
PROVIDERS: PCP Nurse Practitioner Family; Visit Provider Nurse Practitioner Family
DX: Z00.00 Encounter for general adult medical examination without abnormal findings (principal); Z12.5 Encounter for screening for malignant neoplasm of prostate; R35.1 Nocturia
CPT/HCPCS: 99396

== ENCOUNTER 2024-06-29 07:34 | Outpatient (AMB) | payer OTHER, SELFPAY ==
[2024-06-29 07:44] VITALS: BMI 32.4
--- NOTE | 2024-06-29 07:44 | MHC.OFFVIS ---
Vital Signs 06/29/24 07:44 Height 5 ft 11 in Weight 232 lb BMI 32.4 Intake Visit Reasons: Left shoulder pain Intake Note: Deep is a 63 year old male who presents with complaints of left shoulder pain. He describes his pain as sharp in nature. Most of the pain is along the lateral aspect of his shoulder. He denies any weakness. He continues to play golf for exercise. He would like to hold off on surgery if at all possible. Allergies SEASONAL ALLERGIES Allergy (Mild, Uncoded 06/15/24 10:44) SNEEZING,ITCHY EYES Medication List - Last Reconciled 06/29/24 by Deion Mcdaniel MD amlodipine 10 mg PO DAILY 90 days simvastatin 10 mg PO DAILY 90 days tamsulosin 0.4 mg PO BEDTIME zinc gluconate 30 mg PO DAILY [facility] Surgical History (Reviewed 06/15/24 @ 09:13 by Josh Bazan [facility] History of foot surgery History of colonoscopy History of knee surgery Family History (Reviewed 06/15/24 @ 09:13 by Josh Bazan [facility]) Father HTN (hypertension) CVD (cardiovascular disease) Diabetes mellitus Cancer Substance use disorder Mother Diabetes mellitus CVD (cardiovascular disease) HTN (hypertension) Cancer Other Mental health disorder Social History (Reviewed 06/15/24 @ 09:13 by Josh Bazan [facility]) Housing: House Alcohol intake: current Alcohol intake frequency: a few times a month Patient Tobacco Use Status: Never used Tobacco e-Cigarette/Vaping Use: Never Used Second Hand Smoke Exposure: No service: Yes Current occupational status: employed 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 Current occupational exposures/hazards: No Cognitive needs: No Hearing needs: No Vision needs: No Physical Exam Vital Signs: BMI result Body Mass Index 32.4 Const Other: Well-nourished well-developed very friendly male awake alert and oriented x3 in no acute distress Extrem Other: Bilateral upper extremity examination shows good capillary refill, no skin lesions noted, normal sensation light touch Left shoulder examination shows full range of motion when compared to his right shoulder, 4+ out of 5 strength with supraspinatus testing, positive impingement signs, no instability Office Procedures Joint Injection/Aspiration Joint Injection/Aspiration Primary Site: left shoulder Prep: site was prepped using aseptic technique Injected: 40 mg of, DepoMedrol and 1% plain lidocaine Procedure: The patient tolerated the procedure well Coding - Large joint Procedure code (CPT) selection complete Assessment & Plan Assessment & Plan (1) Impingement syndrome of left shoulder: Code(s): M75.42 - Impingement syndrome of left shoulder Category: Medical (2) Left shoulder pain: Code(s): M25.512 - Pain in left shoulder Category: Medical Plan Mr. Mosley presents with left shoulder pain due to impingement syndrome. I had a lengthy discussion with the patient regarding the treatment options. The risks and benefits of a left shoulder cortisone injection were discussed patient. The patient wished to proceed. He tolerated the injection well. He will continue with his home stretching program to prevent stiffness. Will follow up with me on an as-needed basis should his symptoms not plateau at an unacceptable level over the next few months. Feel free to call at any time questions regarding his orthopedic management arise. I spent 21 minutes in reviewing the patient's records and imaging studies, seeing the patient and documenting in the medical record. Orders: Orders AMB Joint Injection/Aspiration Today M75.42 - Impingement syndrome of left shoulder Coding Level of Care Code Est Pt Level 3 (47684) Complex EM visit Add On G2211 Diagnoses Impingement syndrome of left shoulder M75.42 Left shoulder pain M25.512 CPT Codes Coding - Large joint: 40322 - Large joint ([id number])
== END 2024-06-29 08:08 | disposition home or self-care (01) ==
PROVIDERS: PCP Nurse Practitioner Family; Visit Provider Orthopaedic Surgery
DX: M75.42 Impingement syndrome of left shoulder (principal)
CPT/HCPCS: 20610; 99213

== ENCOUNTER → 2024-06-29 07:34 | Outpatient (BNVA) | payer OTHER, SELFPAY | PROVIDERS: PCP Nurse Practitioner Family; Visit Provider Orthopaedic Surgery | DX: M75.42 Impingement syndrome of left shoulder (principal) | CPT/HCPCS: 20610; J1010 ==

== ENCOUNTER 2024-07-21 12:58 | Outpatient (REF) | payer OTHER, SELFPAY ==
[2024-07-21 13:18] LABS: MANUAL DIFF FLAG NO
[2024-07-21 14:03] LABS: Basophils Percent Auto 0.7 % (0-2); Eosinophils Absolute Auto 0.1 X10*3/uL (0.0-0.4); Eosinophils Percent Auto 1.7 % (0-4); Hematocrit 41.5 % (42.0-52.0); Hemoglobin 14.2 g/dl (14.0-18.0); Imm Gran Abs Auto 0.03 X10*3/uL (0.00-0.03); Imm Gran Pct Auto 0.7 % (0.0-0.4); Lymphocytes Absolute Auto 1.2 X10*3/uL (1.2-4.9); Lymphocytes Percent Auto 29.7 % (20-40); Mean Corpuscular HGB Conc 34.2 g/dl (31.0-36.0); Mean Corpuscular Hemoglobin 29.8 pg (27.0-33.0); Mean Platelet Volume 10.1 fL (9.4-12.4); Monocytes Absolute Auto 0.5 X10*3/uL (0.1-1.2); Monocytes Percent Auto 12.7 % (2-11); Neutrophils Absolute Auto 2.3 x10*3/uL (2.0-8.3); Neutrophils Percent Auto 54.5 % (45-73); Platelet Count 221 X10*3/uL (160-400); Red Blood Count 4.77 X10*6/uL (4.60-5.80); Red Cell Distribution Width 12.6 % (11.0-16.0); White Blood Count 4.2 X10*3/uL (4.8-10.8)
[2024-07-21 14:25] LABS: Appearance Urine Clear; Color Urine Yellow; Glucose Urine UA Negative (Negative); Leukocyte Esterase Urine Negative (Negative); Nitrite Urine Negative (Negative); Specific Gravity - Urine 1.025 (1.005-1.025); Urine Blood Negative (Negative); Urine Ketones Negative (Negative); Urine Protein Negative (Neg-Trace)
[2024-07-21 14:51] LABS: Alanine Aminotransferase 34 U/L (0-40); Albumin Level 4.7 g/dL (3.5-5.0); Alkaline Phosphatase 55 U/L (39-117); Anion Gap 13 (12-20); Aspartate Amino Transferase 24 U/L (5-37); Bilirubin Total 0.6 mg/dL (0.0-1.0); Blood Urea Nitrogen 13 mg/dL (9-16); Calcium 9.8 mg/dL (8.4-10.2); Carbon Dioxide 25 mmol/L (22-29); Chloride 106 mmol/L (96-108); Cholesterol 219 mg/dL (<200); Estimated Glomerular Filt Rate > 60; Glucose Fasting 89 mg/dL (60-99); HDL Cholesterol 55 mg/dL (>40); LDL Cholesterol Calculated 138 mg/dL (<100); Potassium 4.2 mmol/L (3.3-5.1); Sodium 140 mmol/L (135-145); Total Protein 7.5 g/dL (6.5-8.0); Triglycerides 131 mg/dL (<150)
[2024-07-21 14:53] LABS: TSH reflex Free T4 1.89 uIU/mL (0.32-4.0)
== END 2024-07-21 12:59 | disposition home or self-care (01) ==
LOC: HO.LAB 12:58
PROVIDERS: PCP Nurse Practitioner Family; Visit Provider Nurse Practitioner Family
DX: Z00.00 Encounter for general adult medical examination without abnormal findings (principal); Z12.5 Encounter for screening for malignant neoplasm of prostate
CPT/HCPCS: 36415; 80053; 80061; 81003; 84153; 84443; 85025

== ENCOUNTER 2024-08-17 08:47 | Outpatient (AMB) | payer OTHER, SELFPAY ==
--- NOTE | 2024-08-17 08:59 | MHC.OFFVIS ---
Intake Visit Reasons: nocturia Intake Note: New Patient presents for initial visit for nocturia Urology Medications: tamsulosin Blood Thinner: none PVR: 45ml's Behavioral Geneticist Required: No Accompanied by: Self / Same As Patient Allergies SEASONAL ALLERGIES Allergy (Mild, Uncoded 08/17/24 09:41) SNEEZING,ITCHY EYES Medication List - Last Reconciled 08/17/24 by Janna Hadley, INFORMATION SYSTEMS AUDIT MANAGER- amlodipine 10 mg PO DAILY 90 days atorvastatin 20 mg PO BEDTIME tamsulosin 0.4 mg PO BEDTIME zinc gluconate 30 mg PO DAILY HPI Comments Details: Deep is a very pleasant 64-year-old male patient of Dr. Grande. He has a past medical history of dyslipidemia, leukopenia, impingement syndrome of left shoulder, and back pain. He presents to the office today as a new patient for nocturia. In discussion with the patient today he reports noting over the last 2 months having had increased episodes of nocturia with straining of urination. He reports prior to this he had only been getting up 1 time per night however more recently has been noticing increased episodes of nocturia and upon wakening feels stream is weak. He reports having discusses with his PCP at which time he was started on Flomax. He reports since compliance with Flomax urinary symptoms have since resolved and feels he is at baseline. In office urinalysis results reviewed with the patient today. PVR 45 mL. We discussed at length potential causes for these lower urinary tract symptoms he had been experiencing. We discussed obtaining retroperitoneal ultrasound for further assessment evaluation. In review of patient's chart it appears PSAs are as follows ... PSA: 08/15 0.4, 06/18 0.5, 07/20 0.7 He otherwise denies urinary urgency, urinary frequency, incontinence, hematuria, dysuria, foul smelling urine, changes to urinary stream, flank pain, fever, and or chills. [facility] Surgical History History of foot surgery History of colonoscopy History of knee surgery Family History Father HTN (hypertension) CVD (cardiovascular disease) Diabetes mellitus Cancer Substance use disorder Mother Diabetes mellitus CVD (cardiovascular disease) HTN (hypertension) Cancer Other Mental health disorder Social History Housing: House Alcohol intake: current Alcohol intake frequency: a few times a month Patient Tobacco Use Status: Never used Tobacco e-Cigarette/Vaping Use: Never Used Second Hand Smoke Exposure: No service: Yes Current occupational status: employed 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 Current occupational exposures/hazards: No Cognitive needs: No Hearing needs: No Vision needs: No Review of Systems Const All systems reviewed & are unremarkable except as noted in HPI and below Physical Exam Const General: cooperative, healthy appearing, comfortable, no acute distress, well developed, alert and awake Orientation/consciousness: patient oriented x3 Limitations: no limitations HEENT Head: Yes normal to inspection, Yes normocephalic and Yes atraumatic Ears: hearing grossly normal bilaterally Eyes General: appearance normal, both eyes and all related structures Neck Neck: Yes normal visual inspection and Yes trachea midline Chest Chest palpation & inspection: normal inspection of the chest Resp Effort & Inspection: normal respiratory effort and able to speak in complete sentences Cardio Rate: regular rate GI Inspection: Yes normal to inspection General: Yes no CVA tenderness Back/Spine/Pelvis Back: no CVA tenderness Skin General skin exam: no rashes or lesions noted Neuro General: patient oriented x3 Extrem General: Yes normal to inspection Psych Appearance: grossly normal and well kempt Mental Status: mental status grossly normal Speech and movement: Normal speech and movement present and Clear speech present Affect: normal affect Attitude: cooperative Thought process: Normal thought process present Thought content: Normal thought content present Insight: Fair insight present (Psych) Judgement: Fair judgement present (Psych) Office Procedures Post Void Residual Post Residual Void Post Void Residual (PVR): 45 68339-[id number] Void Residual by ultrasound Results AMB Urinalysis, Automated UA Leukoctes 0 [place]/uL Last Edit by Darnell Freeman on 08/17/24 09:17 UA Nitrite Last Edit by Darnell Freeman on 08/17/24 09:17 UA Urobilinogen 0.2 mg/dL Last Edit by Darnell Freeman on 08/17/24 09:17 UA Protein 15 mg/dL Last Edit by Darnell Freeman on 08/17/24 09:17 UA pH 5.5 Last Edit by Darnell Freeman on 08/17/24 09:17 UA Blood 0 New/uL Last Edit by Darnell Suarezjessica on 08/17/24 09:17 UA Specific [place] 1.030 Last Edit by Julianelijahlucian Suarezjessica on 08/17/24 09:17 UA Ketone Last Edit by Julianelizabeth Danielajessica on 08/17/24 09:17 UA Bilirubin 1 mg/dL Last Edit by Julianelizabeth Danielajessica on 08/17/24 09:17 UA Glucose 0 mg/dL Last Edit by Julianelizabeth Danielajessica on 08/17/24 09:17 Results Reviewed Results Reviewed: Laboratory Last Values Urine pH (Auto) 5.5 08/17/24 09:04 Specific [place] (Auto) 1.030 08/17/24 09:04 Urine Protein (Auto) 15 mg/dL 08/17/24 09:04 Glucose (UA)(Auto) 0 mg/dL 08/17/24 09:04 Urine Blood (Auto) 0 New/uL 08/17/24 09:04 Urine Bilirubin (Auto) 1 mg/dL 08/17/24 09:04 Urine Urobilinogen (Auto) 0.2 mg/dL 08/17/24 09:04 Leukocyte Esterase (Auto) 0 [place]/uL 08/17/24 09:04 Assessment & Plan Assessment & Plan (1) Nocturia: Code(s): R35.1 - Nocturia Category: Medical Plan In office urinalysis results with the patient today; as noted above. PVR 45 mL. Discussed obtaining retroperitoneal ultrasound for further assessment evaluation. He currently denies any bothersome urinary issues or concerns. He reports be happy with current voiding parameters on 0.4 mg of Flomax; will continue; refill provided. Previous PSA results reviewed with the patient today as noted and trended above. Discussed importance of limiting fluids 2-3 hours prior to bed to decrease episodes of nocturia. We discussed bladder triggers/irritants. We discussed at length potential causes of lower urinary tract symptoms patient had been experiencing. Follow-up in 4 months with imaging to be completed prior and PVR; or sooner with any issues, concerns, and or questions. Orders: Orders US retroperitoneal comp Today R35.1 - Nocturia AMB Urinalysis Automated Today Z13.9 - Encounter for screening, unspecified AMB Post Void Residual by ultrasound Today R35.1 - Nocturia Patient Instructions: The patient had an opportunity to ask questions regarding the treatment plan. All questions were answered. Physical exam, labs, and imaging were discussed and reviewed in detail. As well as risks, benefits, and discussion of treatment choices. No major barriers to understanding were identified. The patient expressed understanding and agreement with the above treatment plan. The patient was made aware they should contact our office by phone for worsening of their current condition, the appearance of new symptoms, or with any questions or concerns. Compliance is encouraged with any medications and follow up testing that is ordered. It is a privilege to be allowed the opportunity to participate in? your urological care.? Again, if you have any questions or concerns If you have any questions or concerns please do not hesitate to contact me. The office is [phone]. This note is constructed using voice recognition software. While every effort has been made to ensure accuracy band builder errors may have been included. Yours sincerely, ANIKET Rivera Coding Level of Care Code New Pt Level 3 (53111) Diagnoses Nocturia R35.1 CPT Codes Post Residual Void - PVR CPT Code: 68573-Azot Void Residual by ultrasound ([id number])
== END 2024-08-17 09:46 | disposition home or self-care (01) ==
PROVIDERS: PCP Nurse Practitioner Family; Visit Provider Nurse Practitioner Family
DX: R35.1 Nocturia (principal); Z13.9 Encounter for screening, unspecified
CPT/HCPCS: 99203

== ENCOUNTER → 2024-08-17 08:47 | Outpatient (BNVA) | payer OTHER, SELFPAY | PROVIDERS: PCP Nurse Practitioner Family; Visit Provider Nurse Practitioner Family | DX: R35.1 Nocturia (principal) | CPT/HCPCS: 51798; 81003 ==

== ENCOUNTER 2024-09-01 13:38 | Outpatient (REF) | payer OTHER, SELFPAY ==
[2024-09-01 13:49] LABS: MANUAL DIFF FLAG NO
[2024-09-01 14:38] LABS: Basophils Percent Auto 0.7 % (0-2); Eosinophils Absolute Auto 0.1 X10*3/uL (0.0-0.4); Eosinophils Percent Auto 1.8 % (0-4); Hematocrit 45.8 % (42.0-52.0); Hemoglobin 15.8 g/dl (14.0-18.0); Imm Gran Abs Auto 0.04 X10*3/uL (0.00-0.03); Imm Gran Pct Auto 0.7 % (0.0-0.4); Lymphocytes Absolute Auto 1.5 X10*3/uL (1.2-4.9); Lymphocytes Percent Auto 27.5 % (20-40); Mean Corpuscular HGB Conc 34.5 g/dl (31.0-36.0); Mean Corpuscular Hemoglobin 29.7 pg (27.0-33.0); Mean Corpuscular Volume 86.1 fL (80.0-98.0); Mean Platelet Volume 10.1 fL (9.4-12.4); Monocytes Absolute Auto 0.7 X10*3/uL (0.1-1.2); Monocytes Percent Auto 11.6 % (2-11); Neutrophils Absolute Auto 3.2 x10*3/uL (2.0-8.3); Neutrophils Percent Auto 57.7 % (45-73); Platelet Count 253 X10*3/uL (160-400); Red Blood Count 5.32 X10*6/uL (4.60-5.80); Red Cell Distribution Width 12.6 % (11.0-16.0); White Blood Count 5.6 X10*3/uL (4.8-10.8)
[2024-09-01 15:05] LABS: Alanine Aminotransferase 49 U/L (0-40); Albumin Level 4.9 g/dL (3.5-5.0); Alkaline Phosphatase 63 U/L (39-117); Anion Gap 16 (12-20); Aspartate Amino Transferase 34 U/L (5-37); Bilirubin Total 0.5 mg/dL (0.0-1.0); Blood Urea Nitrogen 13 mg/dL (9-16); Calcium 10.5 mg/dL (8.4-10.2); Carbon Dioxide 24 mmol/L (22-29); Chloride 105 mmol/L (96-108); Cholesterol 183 mg/dL (<200); Estimated Glomerular Filt Rate > 60; Glucose Fasting 96 mg/dL (60-99); HDL Cholesterol 63 mg/dL (>40); LDL Cholesterol Calculated 93 mg/dL (<100); Potassium 4.1 mmol/L (3.3-5.1); Sodium 141 mmol/L (135-145); Total Protein 7.9 g/dL (6.5-8.0); Triglycerides 139 mg/dL (<150)
== END 2024-09-01 13:39 | disposition home or self-care (01) ==
LOC: HO.LAB 13:38
PROVIDERS: PCP Nurse Practitioner Family; Visit Provider Nurse Practitioner Family
DX: D72.819 Decreased white blood cell count, unspecified (principal); E78.5 Hyperlipidemia, unspecified
CPT/HCPCS: 36415; 80053; 80061; 85025

== ENCOUNTER 2024-09-22 10:33 | Emergency (ER) | payer OTHER, SELFPAY ==
--- NOTE | ~2024-09-22 | CT_ITS ---
EXAMINATION: CT ABDOMEN AND PELVIS WITHOUT CONTRAST CLINICAL INFORMATION: Right lower quadrant/right flank pain. COMPARISON: None currently available. TECHNIQUE: Multidetector volumetric imaging was performed from the superior aspect of the liver through the pubic symphysis. Sagittal and coronal reformatted images were obtained on the technologist's workstation. This CT examination was performed using dose optimization techniques as appropriate, variously including the following: *Automated exposure control *Adjustment of mA and/or kV according to patient size (this includes techniques or standardized protocols for targeted exams where dose is matched to indication/reason for exam; i.e. extremities or head) *Use of iterative reconstruction technique DLP: 720 mGy-cm FINDINGS: LUNG BASES: The lung bases appear clear, with no evidence of inflammation or nodules. LIVER, GALLBLADDER, AND BILIARY TREE: The liver appears unremarkable in size, shape, and attenuation. No focal hepatic lesion or biliary ductal dilatation is appreciated. Unremarkable appearance of the gallbladder. PANCREAS: Unremarkable SPLEEN: Calcified splenic granuloma. ADRENAL GLANDS: Unremarkable KIDNEYS AND URETERS: 0.4 cm proximal left ureteral stone (image 58, coronal series 6; image 45, axial series 3). Associated mild right hydronephrosis and proximal hydroureter. No urinary tract stone or hydronephrosis identified on the left. Benign left parapelvic simple renal cysts for which no further dedicated follow-up imaging as indicated. The kidneys otherwise appear unremarkable in size, shape, and attenuation. BLADDER: Unremarkable GASTROINTESTINAL TRACT: Stomach and small bowel appear unremarkable. Colonic diverticulosis without evidence of diverticulitis. Normal-appearing distal ileum and vermiform appendix. ABDOMINAL WALL: No significant hernia is appreciated. LYMPH NODES: No evidence of adenopathy by size criteria. VASCULAR: Unremarkable PELVIC VISCERA: Unremarkable OSSEOUS STRUCTURES: Unremarkable CT/CT abdomen pelvis wo IV con IMPRESSION: 0.4 cm proximal left ureteral stone with associated mild right hydronephrosis and proximal hydroureter. Electronically signed by: Bari Washington MD 09/22/2024 04:10 PM [facility]
[2024-09-22 10:42] VITALS: BP 146/87; PULSE 68; RESP 20; TEMP 36.4; O2SAT 100; BMI 30.7
[2024-09-22 11:00] LABS: MANUAL DIFF FLAG NO
[2024-09-22 11:01] LABS: Basophils Percent Auto 0.5 % (0-2); Eosinophils Absolute Auto 0.1 X10*3/uL (0.0-0.4); Eosinophils Percent Auto 0.8 % (0-4); Hemoglobin 15.7 g/dl (14.0-18.0); Imm Gran Abs Auto 0.06 X10*3/uL (0.00-0.03); Imm Gran Pct Auto 0.9 % (0.0-0.4); Lymphocytes Absolute Auto 1.2 X10*3/uL (1.2-4.9); Lymphocytes Percent Auto 17.8 % (20-40); Mean Corpuscular HGB Conc 34.1 g/dl (31.0-36.0); Mean Corpuscular Hemoglobin 29.5 pg (27.0-33.0); Mean Corpuscular Volume 86.3 fL (80.0-98.0); Monocytes Absolute Auto 0.6 X10*3/uL (0.1-1.2); Monocytes Percent Auto 9.7 % (2-11); Neutrophils Absolute Auto 4.6 x10*3/uL (2.0-8.3); Neutrophils Percent Auto 70.3 % (45-73); Platelet Count 233 X10*3/uL (160-400); Red Blood Count 5.33 X10*6/uL (4.60-5.80); Red Cell Distribution Width 12.7 % (11.0-16.0); White Blood Count 6.6 X10*3/uL (4.8-10.8)
[2024-09-22 11:13] LABS: Alkaline Phosphatase 66 U/L (39-117); Anion Gap 18 (12-20); Aspartate Amino Transferase 37 U/L (5-37); Bilirubin Direct 0.2 mg/dL (0.0-0.5); Bilirubin Total 0.5 mg/dL (0.0-1.0); Blood Urea Nitrogen 15 mg/dL (9-16); Calcium 10.4 mg/dL (8.4-10.2); Carbon Dioxide 21 mmol/L (22-29); Chloride 107 mmol/L (96-108); Creatinine Clr Calc Pharmacy 83.4; Estimated Glomerular Filt Rate > 60; Glucose Random 135 mg/dL (60-115); Lipase 29 U/L (8-78); Potassium 4.6 mmol/L (3.3-5.1); Sodium 141 mmol/L (135-145)
[2024-09-22 11:24] LABS: Alanine Aminotransferase 58 U/L (0-40)
--- NOTE | 2024-09-22 11:49 | ED_ITS ---
HPI - Abdominal Pain General Chief Complaint: Abdominal Pain Stated Complaint: Abd pain Time Seen by Provider: 09/22/24 14:09 Source: patient Mode of arrival: ambulatory Limitations: no limitations History of Present Illness ED Provider: Dr. Shannon Crabtree HPI narrative: Patient comes to the emergency room complaining of nausea vomiting and right- sided flank pain. Patient states all of his symptoms started today. Patient states that the pain is constant but at times it increases and it is unbearable. At this time, patient reports right-sided flank pain /. Patient states that his urine today looked darker than usual and cloudy, denied dysuria. Related Data Home Medications ?Medication ?Instructions ?Recorded ?Confirmed zinc gluconate 30 mg tablet 30 mg PO DAILY 08/03/20 06/29/24 Previous Rx's ?Medication ?Instructions ?Recorded atorvastatin 20 mg tablet 20 mg PO BEDTIME #90 tabs 07/23/24 tamsulosin 0.4 mg capsule 0.4 mg PO BEDTIME 90 days #90 caps 08/17/24 amlodipine 10 mg tablet 10 mg PO DAILY 90 days #90 tabs 09/11/24 ketorolac 10 mg tablet 10 mg PO TID PRN pain #12 tabs 09/22/24 ondansetron HCl 4 mg tablet 4 mg PO Q6H PRN nausea and 09/22/24 vomiting #14 tabs prednisone 20 mg tablet 20 mg PO DAILY #3 tabs 09/22/24 Allergies Allergy/AdvReac Type Severity Reaction Status Date / Time SEASONAL ALLERGIES Allergy Mild SNEEZING,ITCHY Uncoded 09/22/24 10:46 EYES Review of Systems Review of Systems Constitutional : No Weight loss, No Fever, No Chills, No Night Sweats, No Fatigue, No Malaise ENT/Mouth : No Hearing loss, No Ear Pain, No Nasal Congestion, No Sinus Pain, No Hoarseness, No sore throat, No Rhinorrhea, No Swallowing Difficulty Eyes: No Eye Pain, No Swelling, No Redness, No Foreign Body, No Discharge, No Vision Changes Cardiovascular : No Chest Pain, No SOB, No Dyspnea on Exertion, No Orthopnea, No Edema, No Palpitations Respiratory : No Cough, No Sputum, No Wheezing, No Smoke Exposure, No Dyspnea Gastrointestinal : Complaining of nausea and vomiting, No Diarrhea, No Constipation, No abdominal Pain, No Hematochezia, No Melena Genitourinary : no irregular bleeding, No Dysuria, No Urinary Frequency, No Hematuria, No Urinary Incontinence, No Urgency, complaining of right-sided Flank Pain, No Urinary Flow Changes, No Hesitancy Musculoskeletal : No joint pain, No Myalgias, No Joint Swelling Skin : No Skin Lesions, No rash Neuro : No Weakness, No Numbness, No Paresthesias, No Loss of Consciousness, No Dizziness, No Headache Psych : No Anxiety/Panic, No Depression, No SI/HI/AH/VH, No Social Issues, Heme/Lymph: No Bruising, No Bleeding,No Lymphadenopathy Endocrine : No Polyuria, No Polydipsia, No Temperature Intolerance [facility] Past Medical History Surgical History History of foot surgery History of colonoscopy History of knee surgery Family History Family History Father HTN (hypertension) CVD (cardiovascular disease) Diabetes mellitus Cancer Substance use disorder Mother Diabetes mellitus CVD (cardiovascular disease) HTN (hypertension) Cancer Other Mental health disorder Social History Social History Housing: House Alcohol intake: current Alcohol intake frequency: a few times a month Patient Tobacco Use Status: Never used Tobacco e-Cigarette/Vaping Use: Never Used Second Hand Smoke Exposure: No Advance Directives: No Advance Directives Information Provided: Yes service: Yes Current occupational status: employed 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 Oriented X3. No acute distress. Eyes: Pupils equal, round and reactive to light. ENT: Pharynx normal. Neck: Normal inspection. Neck supple. No lymph nodes noted. No crepitus CVS: Normal heart rate and rhythm. Pulses normal. Normal S1 and S2 Respiratory: No respiratory distress. Breath sounds normal. No Wheezing. No rales Abdomen: Soft and nontender. No rigidity. No distention. Mild CVA tenderness on the right Skin: Skin warm and dry. Normal skin color. Normal skin turgor. Extremities: No lower extremity edema. No Lacerations. No Rash Neuro: Oriented X 3. No motor deficit. No sensory deficit. Moving all extremities. No slurred speech. CN 2 through 12 grossly intact Psych: calm, cooperative, normal affect Course Course Course Narrative: This is a Rapid Medical Exam performed in triage by Rosa Daly PA-C. Full HPI, ROS and PE to be performed by primary ED provider. 64-year-old male with no significant past medical history presenting to the ED c/o right lower abdominal pain radiating to right flank x this morning. Reports cloudy urine and abdominal bloating PE: Uncomfortable, in wheelchair Plan: Labs, UA, CT Medical Decision Making Medical Decision Making [facility] Narrative: -my interpretation of labs: Normal hematology, chemistry, LFTs and lipase. Urinalysis positive for urine in the blood, no UTI My interpretation of CT scan, there is kidney stone in the ureter approximately 4 mm. Radiology report pending. Patient receiving IV fluids, Zofran and ketorolac for symptomatic relief. -CT scan shows a ureteral stone, 4 mm. Per Radiology report, it is on the left. However, seems to be a dictation error, stone is on the right with mild hydronephrosis Differential Diagnosis Differential Diagnoses: The differential diagnosis associated with the presentation includes (Kidney stone, renal colic, gastritis, gastroenteritis) Admission/Observation Consideration of admission/observation: Escalation of care including admission/observation considered (Given patient's initial presentation, observation was considered) Lab Data [facility] Lab Attestation statement: I reviewed the patient's lab results. 09/22/24 10:52 09/22/24 10:52 Labs: Lab Results 09/22/24 09/22/24 Range/Units 10:52 11:55 WBC 6.6 (4.8-10.8) X10*3/uL RBC 5.33 (4.60-5.80) X10*6/uL Hgb 15.7 (14.0-18.0) g/dl Hct 46.0 (42.0-52.0) % MCV 86.3 (80.0-98.0) fL MCH 29.5 (27.0-33.0) pg MCHC 34.1 (31.0-36.0) g/dl RDW 12.7 (11.0-16.0) % Plt Count 233 (160-400) X10*3/uL MPV 10.0 (9.4-12.4) fL Immature Gran % (Auto) 0.9 H (0.0-0.4) % Neut % (Auto) 70.3 (45-73) % Lymph % (Auto) 17.8 L (20-40) % [place] % (Auto) 9.7 (2-11) % Eos % (Auto) 0.8 (0-4) % Baso % (Auto) 0.5 (0-2) % Lymph # (Auto) 1.2 (1.2-4.9) X10*3/uL [place] # (Auto) 0.6 (0.1-1.2) X10*3/uL Eos # (Auto) 0.1 (0.0-0.4) X10*3/uL Baso # (Auto) 0.0 (0.0-0.2) X10*3/uL Abs Immat Gran (auto) 0.06 H (0.00-0.03) X10*3/uL Absolute Neuts (auto) 4.6 (2.0-8.3) x10*3/uL Absolute Nucleated RBC 0.000 (0.0-0.012) X10*3/uL Nucleated RBC % (auto) 0.0 (0.0-0.2) /100WBC Sodium 141 (135-145) mmol/L Potassium 4.6 (3.3-5.1) mmol/L Chloride 107 (96-108) mmol/L Carbon Dioxide 21 L (22-29) mmol/L Anion Gap 18 (12-20) BUN 15 (9-16) mg/dL Creatinine 1.09 (0.5-1.4) mg/dL Estim Creat Clear Calc 83.4 Estimated GFR > 60 Random Glucose 135 H (60-115) mg/dL Calcium 10.4 H (8.4-10.2) mg/dL Magnesium 2.1 (1.6-2.6) mg/dL Total Bilirubin 0.5 (0.0-1.0) mg/dL Direct Bilirubin 0.2 (0.0-0.5) mg/dL AST 37 (5-37) U/L ALT 58 H (0-40) U/L Alkaline Phosphatase 66 (39-117) U/L Total Protein 8.0 (6.5-8.0) g/dL Albumin 5.0 (3.5-5.0) g/dL Lipase 29 (8-78) U/L Urine Color Dark Yellow Urine Appearance Cloudy Urine pH 6.5 (5.0-9.0) Ur Specific [place] 1.025 (1.005-1.025) Urine Protein 100 (2+) H (Neg-Trace) mg/dL Urine Glucose (UA) Negative (Negative) mg/dL Urine Ketones Trace (Negative) mg/dL Urine Blood Large (3+) H (Negative) Urine Nitrite Negative (Negative) Ur Leukocyte Esterase Trace H (Negative) Urine RBC >20 H (0-2) /HPF Urine WBC 0-5 (0-5) /HPF Ur Squamous Epith Cells 0-2 (0-2) /HPF Urine Bacteria None Seen (None Seen) Hyaline Casts 0-2 (0-2) /LPF Independent Interpretation I performed an independent interpretation of an: CT Scan Interpretation: FINDINGS: LUNG BASES: The lung bases appear clear, with no evidence of inflammation or nodules. LIVER, GALLBLADDER, AND BILIARY TREE: The liver appears unremarkable in size, shape, and attenuation. No focal hepatic lesion or biliary ductal dilatation is appreciated. Unremarkable appearance of the gallbladder. PANCREAS: Unremarkable SPLEEN: Calcified splenic granuloma. ADRENAL GLANDS: Unremarkable KIDNEYS AND URETERS: 0.4 cm proximal left ureteral stone (image 58, coronal series 6; image 45, axial series 3). Associated mild right hydronephrosis and proximal hydroureter. No urinary tract stone or hydronephrosis identified on the left. Benign left parapelvic simple renal cysts for which no further dedicated follow-up imaging as indicated. The kidneys otherwise appear unremarkable in size, shape, and attenuation. BLADDER: Unremarkable GASTROINTESTINAL TRACT: Stomach and small bowel appear unremarkable. Colonic diverticulosis without evidence of diverticulitis. Normal-appearing distal ileum and vermiform appendix. ABDOMINAL WALL: No significant hernia is appreciated. LYMPH NODES: No evidence of adenopathy by size criteria. VASCULAR: Unremarkable PELVIC VISCERA: Unremarkable OSSEOUS STRUCTURES: Unremarkable CT/CT abdomen pelvis wo IV con IMPRESSION: 0.4 cm proximal left ureteral stone with associated mild right hydronephrosis and proximal hydroureter. Medications Administered Discontinued Medications Generic Name Dose Route Start Last Admin Trade Name Freq PRN Reason Stop Dose Admin Sodium Chloride 1,000 mls @ 999 mls/hr 09/22/24 14:24 09/22/24 16:13 Ns IVCONT 09/22/24 15:24 Infused .Q1H1M ONE Infusion Ketorolac Tromethamine 30 mg 09/22/24 14:24 09/22/24 15:13 Ketorolac Tromethamine 30 Mg/Ml Vial IVPUSH 09/22/24 14:25 30 mg ONCE ONE Administration Ondansetron HCl 4 mg 09/22/24 14:24 09/22/24 15:13 Ondansetron Hcl 4 Mg/2 Ml Vial IVPUSH 09/22/24 14:25 4 mg ONCE ONE Administration Critical Care Time Critical Care Time Critical Care Time: Yes Total Critical Care Time: 35 Attestation: I have personally provided critical care time. Time includes review of lab data, radiology results, discussion with consultants, and monitoring for potential decompensation. Intervention performed as documented. Discharge Plan Discharge Clinical Impression: Ureterolithiasis Patient Disposition: Home, Self-Care Instructions: Ureteral Stones (ED) Additional Instructions: Please follow-up with your primary care physician tomorrow. If you have any worsening or new symptoms, please return to the emergency room or call 911 Prescriptions: New prednisone 20 mg tablet 20 mg PO DAILY Qty: 3 0RF ketorolac 10 mg tablet 10 mg PO TID PRN (Reason: pain) Qty: 12 0RF Rx Instructions: Do not use this medication with NSAIDs, only Tylenol if needed ondansetron HCl 4 mg tablet 4 mg PO Q6H PRN (Reason: nausea and vomiting) Qty: 14 0RF No Action atorvastatin 20 mg tablet 20 mg PO BEDTIME Qty: 90 0RF amlodipine 10 mg tablet 10 mg PO DAILY 90 Days Qty: 90 1RF zinc gluconate 30 mg tablet 30 mg PO DAILY tamsulosin 0.4 mg capsule 0.4 mg PO BEDTIME 90 Days Qty: 90 1RF Referrals: Sylvain Cutler MD [Physician] - 3 days Print Language: Luxembourgish
[2024-09-22 12:06] LABS: Magnesium 2.1 mg/dL (1.6-2.6)
[2024-09-22 12:11] LABS: Appearance Urine Cloudy; Color Urine Dark Yellow; Glucose Urine UA Negative (Negative); Leukocyte Esterase Urine Trace (Negative); Nitrite Urine Negative (Negative); PH 6.5 (5.0-9.0); Specific Gravity - Urine 1.025 (1.005-1.025); UMIC TRIGGER UACC YES; Urine Blood Large (3+) (Negative); Urine Ketones Trace mg/dL (Negative); Urine Protein 100 (2+) mg/dL (Neg-Trace)
[2024-09-22 12:16] LABS: Bacteria Urine None Seen (None Seen); Hyaline Casts Urine 0-2 /LPF (0-2); RBC Urine >20 /HPF (0-2); Squamous Epithelial Cell Urine 0-2 /HPF (0-2); WBC Urine 0-5 /HPF (0-5)
--- OUTSIDE RECORDS SUMMARY | 2024-09-22 13:40 | XMS_ITS | Continuity of Care Document ---
Author Organization [facility] Address [address] [place] [id number]- Care Team Providers Care Retail Merchandising Specialist Name Role Phone Kimberly LEE Sameer Timo Primary Care Physician Encounter [facility] ACCT R [id number] Date(s): 08/06/24 - 09/15/[address] [address]- Attending Physician: Renetta Soler MD Admitting Physician: Renetta Soler MD Referring Physician: Renetta Soler MD Encounter Type: Pre-Outpt Allergies, Adverse Reactions, Alerts Substance Criticality Severity Reaction Reaction Severity Status Other Environmental Allergy Active Medications Amlodipine 10 mg, By Mouth, Daily in AM, Maintenance, 10/11/11 9:05:44 AM EST Start Date: 10/11/11 Status: Ordered Repeat number: 1 aspirin 325 mg oral delayed release tablet 325 mg, 1, tablet, By Mouth, Daily, # 30 tablet, Refills 0, Tot. Refills 0, Maintenance, 09/10/23 7:15:00 AM EST, Route to Pharmacy Electronically, [facility], Partial fill upon patientrequest if the prescription is for a schedule II opioid drug., 180, cm, 09/10/23 6:47:00 EST, Height, 103.7, kg, 09/10/23 6:47:00 EST, Dry Weight Start Date: 09/10/23 Status: Ordered Quantity: 30.0 Unit: tablet Repeat number: 1 Simvastatin Tablet 10 mg, By Mouth, Daily at bedtime, Maintenance, 10/11/11 9:05:55 AM EST Start Date: 10/11/11 Status: Ordered Repeat number: 1 Problem List Condition Confirmation Course Effective Dates Status Health St [facility] Informant Obese class I Confirmed Active Social History Social History Type Response Smoking Status Never smoker entered on: 05/25/18 Sex Sex Representation Male (finding) Patient Care team information Care Team Personnel Name: Sameer Harris DO Position: Reference Physician Member Role: PCP [address]: [address] [place] [address] [address] [facility] [place], [place] [address] Telecom: Care Team Related Persons Name: YAMILET RODRIGUEZ Insurance Providers Guarantor name: EUGENIA HOWARD Health Plan Information #: 2 Payer: HMO [employer] Member Number: [id number] Policy Number: NA Group Number: NA Health Plan Information #: 1 Payer: [employer]UE B[employer]EFIT [employer] PPO Member Number: [id number] Policy Number: NA Group Number: [id number]
[2024-09-22] MEDS: 0.9 % Sodium Chloride 1,000 ML 999 ML IVCONT (15:01)
[2024-09-22 15:05] VITALS: BP 140/85; PULSE 77; RESP 18; TEMP 36.7; O2SAT 96
[2024-09-22] MEDS: ondansetron HCL 4 MG/2 ML VIAL IVPUSH (15:13)
[2024-09-22] MEDS: Ketorolac Tromethamine 30 MG/ML VIAL IVPUSH (15:13)
[2024-09-22 17:10] VITALS: BP 140/85; PULSE 77; RESP 18; TEMP 36.7; O2SAT 96
== END 2024-09-22 17:10 | disposition home or self-care (01) ==
PROVIDERS: Physician Assistant; Emergency Provider Emergency Medicine; PCP Nurse Practitioner Family
DX: N13.2 Hydronephrosis with renal and ureteral calculous obstruction (principal)
CPT/HCPCS: 36415; 74176; 80048; 80076; 81001; 83690; 83735; 85025; 96361; 96374; 96375; 99284; J1885; J2405

== ENCOUNTER 2024-11-02 07:33 | Outpatient (AMB) | payer OTHER, SELFPAY ==
--- NOTE | 2024-11-02 07:46 | MHC.OFFVIS ---
Intake Visit Reasons: Left shoulder injection, last inj 06/29/24 Intake Note: Deep is a 64 year old right hand dominant male who presents with complaints of left shoulder pain. He describes his pain as sharp in nature. He denies any weakness. He has had cortisone injections in the past which gave him fairly good relief. He wishes to hold off on surgery if at all possible. He has tried Tylenol and anti-inflammatory medicines which gave him minimal relief. He has also done physical therapy exercises which aggravated his pain. Allergies SEASONAL ALLERGIES Allergy (Mild, Uncoded 09/22/24 10:46) SNEEZING,ITCHY EYES Medication List - Last Reconciled 11/02/24 by Deion Mcdaniel MD amlodipine 10 mg PO DAILY 90 days atorvastatin 20 mg PO BEDTIME ketorolac 10 mg PO TID PRN ondansetron HCl 4 mg PO Q6H PRN prednisone 20 mg PO DAILY tamsulosin 0.4 mg PO BEDTIME 90 days zinc gluconate 30 mg PO DAILY PFSH Surgical History History of foot surgery History of colonoscopy History of knee surgery Family History Father HTN (hypertension) CVD (cardiovascular disease) Diabetes mellitus Cancer Substance use disorder Mother Diabetes mellitus CVD (cardiovascular disease) HTN (hypertension) Cancer Other Mental health disorder Social History Housing: House Alcohol intake: current Alcohol intake frequency: a few times a month Patient Tobacco Use Status: Never used Tobacco e-Cigarette/Vaping Use: Never Used Second Hand Smoke Exposure: No service: Yes Current occupational status: employed 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 Current occupational exposures/hazards: No Cognitive needs: No Hearing needs: No Vision needs: No Physical Exam Const Other: Well-nourished well-developed very friendly male awake alert and oriented x3 in no acute distress Extrem Other: Bilateral upper extremity examination shows good capillary refill, no skin lesions noted, normal sensation light touch Left shoulder examination shows decreased range of motion when compared to his right shoulder, 4+ out of 5 strength with supraspinatus testing, positive impingement signs, no instability Office Procedures AMB Joint Injection/Aspiration Joint Injection/Aspiration Primary Site: left shoulder Prep: site was prepped using aseptic technique Injected: 40 mg of, DepoMedrol and 1% plain lidocaine Procedure: The patient tolerated the procedure well Coding 77458 - Large joint Procedure code (CPT) selection complete Assessment & Plan Assessment & Plan (1) Impingement syndrome of left shoulder: Code(s): M75.42 - Impingement syndrome of left shoulder Category: Medical Plan Mr. Mosley presents with left shoulder pain due to impingement syndrome and possible rotator cuff tearing. The risks and benefits of a left shoulder cortisone injection were discussed at length patient. The patient wished to proceed. He tolerated the injection well. He will continue with his home stretching program. He will contact me prior to his follow-up appointment in 3 months should any questions or concerns arise. Feel free to call me at any time should questions regarding his orthopedic management arise. I spent 21 minutes in reviewing the patient's records and imaging studies, seeing the patient and documenting in the medical record. Orders: Orders AMB Joint Injection/Aspiration Today M75.42 - Impingement syndrome of left shoulder Coding Level of Care Code Est Pt Level 3 (40846) Complex EM visit Add On G2211 Diagnoses Impingement syndrome of left shoulder M75.42 CPT Codes Coding - 80298 Large joint: 78196 - Large joint ([id number])
== END 2024-11-02 08:06 | disposition home or self-care (01) ==
PROVIDERS: PCP Nurse Practitioner Family; Visit Provider Orthopaedic Surgery
DX: M75.42 Impingement syndrome of left shoulder (principal)
CPT/HCPCS: 20610; 99213

== ENCOUNTER → 2024-11-02 07:33 | Outpatient (BNVA) | payer OTHER, SELFPAY | PROVIDERS: PCP Nurse Practitioner Family; Visit Provider Orthopaedic Surgery | DX: M75.42 Impingement syndrome of left shoulder (principal) | CPT/HCPCS: 20610; J1010; J2003 ==

== ENCOUNTER 2024-11-11 16:08 | Outpatient (REF) | payer OTHER, SELFPAY ==
--- NOTE | ~2024-11-11 | US_ITS ---
EXAMINATION: US RETROPERITONEUM HISTORY: R35.1 - Nocturia TECHNIQUE: Real-time grayscale ultrasound imaging of the kidneys was performed and images were reviewed. COMPARISON: Correlation is made with an unenhanced CT of the abdomen and pelvis dated 09/22/2024. FINDINGS: Right kidney: The right kidney measures 12.4 x 6.5 x 5.5 cm. Renal parenchymal echotexture and thickness are normal. There is a 1.2 x 2.2 x 0.7 cm parapelvic cyst. No solid mass is identified. There is no hydronephrosis or renal calculi. Left Kidney: The left kidney measures 11.9 x 5.5 x 4.3 cm. Renal parenchymal echotexture and thickness are normal. There are multiple parapelvic cysts measuring up to 1.7 cm in size. No solid mass is identified. There is no hydronephrosis or renal calculi. The urinary bladder is unremarkable. Bilateral ureteral jets are identified. Before voiding, the bladder measured 11.8 x 7.4 x 8.2 cm, for an estimated volume of 375 mL. After voiding, the urinary bladder measured 3.0 x 1.8 x 3.2 cm for an as needed volume of 9 mL. The prostate measures 4.0 x 3.6 x 3.8 cm. US/US retroperitoneal comp IMPRESSION: Bilateral renal parapelvic cysts. Post void bladder residual of 9 mL. Electronically signed by: Adrien Muro MD 11/12/2024 07:11 AM [facility]
== END 2024-11-11 16:09 | disposition home or self-care (01) ==
LOC: HO.US 16:08
PROVIDERS: PCP Nurse Practitioner Family; Visit Provider Nurse Practitioner Family
DX: R35.1 Nocturia (principal)
CPT/HCPCS: 76770

== ENCOUNTER → 2024-11-11 16:12 | Outpatient (BNV) | payer OTHER, SELFPAY | PROVIDERS: PCP Nurse Practitioner Family; Visit Provider Radiology Diagnostic Radiology | DX: N28.1 Cyst of kidney, acquired (principal) | CPT/HCPCS: 76770 ==

== ENCOUNTER 2024-11-16 14:36 | Outpatient (AMB) | payer OTHER, SELFPAY ==
--- NOTE | 2024-11-16 15:21 | MHC.OFFVIS ---
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 Grande. He has a past medical history of dyslipidemia, leukopenia, impingement syndrome of left shoulder, and back pain. He presents to the office today for follow-up. Of note, patient was seen approximately 3 months ago as a new patient for nocturia at which time a retroperitoneal ultrasound was ordered for further assessment evaluation however patient seeked emergency room care for acute onset of left-sided flank pain at which time he was noted to have an obstructing 4 mm proximal left ureteral stone associated with mild hydronephrosis on CT 09/19. Patient reports shortly after his ER visit pain subsided and he believed he passed his kidney stone. Most recent retroperitoneal ultrasound 11/20 notes bilateral kidneys with no calculi, hydronephrosis, or renal masses. There are benign bilateral renal cysts that require no indication for follow-up imaging per radiology report. He denies any previous history of nephrolithiasis and or surgical intervention for nephrolithiasis. He reports noting improvement in episodes of nocturia with Flomax however discusses his reluctancy and taking medications. He also notes improvement in urinary stream with compliance of Flomax. In office urinalysis results reviewed with the patient today. PVR 45 mL. We discussed at length lifestyle modifications to assist with nocturia as well as further treatment options and risks and benefits of these treatment options. PSAs are as follows ... PSA: 08/15 0.4, 06/18 0.5, 07/20 0.7 He otherwise denies urinary urgency, urinary frequency, incontinence, hematuria, dysuria, foul smelling urine, changes to urinary stream, flank pain, fever, and or chills. [facility] Surgical History History of foot surgery History of colonoscopy History of knee surgery Family History Father HTN (hypertension) CVD (cardiovascular disease) Diabetes mellitus Cancer Substance use disorder Mother Diabetes mellitus CVD (cardiovascular disease) HTN (hypertension) Cancer Other Mental health disorder Social History Housing: House Alcohol intake: current Alcohol intake frequency: a few times a month Patient Tobacco Use Status: Never used Tobacco e-Cigarette/Vaping Use: Never Used Second Hand Smoke Exposure: No service: Yes Current occupational status: employed 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 Current occupational exposures/hazards: No Cognitive needs: No Hearing needs: No Vision needs: No Review of Systems Const All systems reviewed & are unremarkable except as noted in HPI and below Physical Exam Const General: cooperative, healthy appearing, comfortable, no acute distress, well developed, alert and awake Orientation/consciousness: patient oriented x3 Limitations: no limitations HEENT Head: Yes normal to inspection, Yes normocephalic and Yes atraumatic Ears: hearing grossly normal bilaterally Eyes General: appearance normal, both eyes and all related structures Neck Neck: Yes normal visual inspection and Yes trachea midline Chest Chest palpation & inspection: normal inspection of the chest Resp Effort & Inspection: normal respiratory effort and able to speak in complete sentences Cardio Rate: regular rate GI Inspection: Yes normal to inspection General: Yes no CVA tenderness Back/Spine/Pelvis Back: no CVA tenderness Skin General skin exam: no rashes or lesions noted Neuro General: patient oriented x3 Extrem General: Yes normal to inspection Psych Appearance: grossly normal and well kempt Mental Status: mental status grossly normal Speech and movement: Normal speech and movement present and Clear speech present Affect: normal affect Attitude: cooperative Thought process: Normal thought process present Thought content: Normal thought content present Insight: Fair insight present (Psych) Judgement: Fair judgement present (Psych) Results AMB Urinalysis, Automated UA Leukoctes 0 Alma/uL Last Edit by Darnell Freeman on 11/16/24 17:07 UA Nitrite Last Edit by Darnell Freeman on 11/16/24 17:07 UA Urobilinogen 0.2 mg/dL Last Edit by Darnell Freeman on 11/16/24 17:07 UA Protein 15 mg/dL Last Edit by Julianyce Lydia on 11/16/24 17:07 UA pH 5.5 Last Edit by Qie Lydia on 11/16/24 17:07 UA Blood 0 New/uL Last Edit by Qie Danielass on 11/16/24 17:07 UA Specific Loomis 1.030 Last Edit by Sportlobsteryce Danielass on 11/16/24 17:07 UA Ketone Last Edit by Sportlobsterelijahe Lydia on 11/16/24 17:07 UA Bilirubin 0 mg/dL Last Edit by Sportlobsteryce Danielass on 11/16/24 17:07 UA Glucose 0 mg/dL Last Edit by Sportlobsteryce Lydia on 11/16/24 17:07 Results Reviewed Results Reviewed: Laboratory Last Values Urine pH (Auto) 5.5 11/16/24 17:06 Specific Loomis (Auto) 1.030 11/16/24 17:06 Urine Protein (Auto) 15 mg/dL 11/16/24 17:06 Glucose (UA)(Auto) 0 mg/dL 11/16/24 17:06 Urine Blood (Auto) 0 New/uL 11/16/24 17:06 Urine Bilirubin (Auto) 0 mg/dL 11/16/24 17:06 Urine Urobilinogen (Auto) 0.2 mg/dL 11/16/24 17:06 Leukocyte Esterase (Auto) 0 Alma/uL 11/16/24 17:06 Date of Service: 11/11/24 EXAMINATION: US RETROPERITONEUM . FINDINGS: Right kidney: The right kidney measures 12.4 x 6.5 x 5.5 cm. Renal parenchymal echotexture and thickness are normal. There is a 1.2 x 2.2 x 0.7 cm parapelvic cyst. No solid mass is identified. There is no hydronephrosis or renal calculi. Left Kidney: The left kidney measures 11.9 x 5.5 x 4.3 cm. Renal parenchymal echotexture and thickness are normal. There are multiple parapelvic cysts measuring up to 1.7 cm in size. No solid mass is identified. There is no hydronephrosis or renal calculi. The urinary bladder is unremarkable. Bilateral ureteral jets are identified. Before voiding, the bladder measured 11.8 x 7.4 x 8.2 cm, for an estimated volume of 375 mL. After voiding, the urinary bladder measured 3.0 x 1.8 x 3.2 cm for an as needed volume of 9 mL. The prostate measures 4.0 x 3.6 x 3.8 cm. IMPRESSION: Bilateral renal parapelvic cysts. Post void bladder residual of 9 mL. Assessment & Plan Assessment & Plan (1) Nocturia: Code(s): R35.1 - Nocturia Category: Medical (2) Nephrolithiasis: Code(s): N20.0 - Calculus of kidney Category: Medical (3) Weak urinary stream: Code(s): R39.12 - Poor urinary stream Category: Medical Plan Recent retroperitoneal ultrasound results reviewed with the patient today; as noted above. In office urinalysis results reviewed with the patient today; as noted above. PVR 45 mL. We discussed importance of adequate hydration relation to nephrolithiasis as well as overall health and well-being. We discussed lifestyle modifications to assist with nocturia We discussed bladder triggers/irritants. Continue Flomax. Keep scheduled follow-up Orders: Orders AMB Urinalysis Automated Today Z13.9 - Encounter for screening, unspecified Patient Instructions: The patient had an opportunity to ask questions regarding the treatment plan. All questions were answered. Physical exam, labs, and imaging were discussed and reviewed in detail. As well as risks, benefits, and discussion of treatment choices. No major barriers to understanding were identified. The patient expressed understanding and agreement with the above treatment plan. The patient was made aware they should contact our office by phone for worsening of their current condition, the appearance of new symptoms, or with any questions or concerns. Compliance is encouraged with any medications and follow up testing that is ordered. It is a privilege to be allowed the opportunity to participate in? your urological care.? Again, if you have any questions or concerns If you have any questions or concerns please do not hesitate to contact me. The office is [phone]. This note is constructed using voice recognition software. While every effort has been made to ensure accuracy ux ui designer errors may have been included. Yours sincerely, ANIKET Rivera Coding Level of Care Code Est Pt Level 3 (98367) Diagnoses Nocturia R35.1 Nephrolithiasis N20.0 Weak urinary stream R39.12
== END 2024-11-16 16:02 | disposition home or self-care (01) ==
PROVIDERS: PCP Nurse Practitioner Family; Visit Provider Nurse Practitioner Family
DX: R35.1 Nocturia (principal); N20.0 Calculus of kidney; R39.12 Poor urinary stream; Z13.9 Encounter for screening, unspecified
CPT/HCPCS: 99213

== ENCOUNTER → 2024-11-16 14:36 | Outpatient (BNVA) | payer OTHER, SELFPAY | PROVIDERS: PCP Nurse Practitioner Family; Visit Provider Nurse Practitioner Family | DX: R35.1 Nocturia (principal); R39.12 Poor urinary stream; N20.0 Calculus of kidney; Z79.899 Other long term (current) drug therapy | CPT/HCPCS: 81003 ==

== ENCOUNTER 2024-12-09 08:17 | Outpatient (REF) | payer OTHER, SELFPAY ==
[2024-12-09 11:14] LABS: Influenza A PCR POSITIVE (Negative); Influenza B PCR NEGATIVE (Negative); Resp Syncy Virus RNA Qual PCR NEGATIVE (Negative); SARS COV2 PCR INHOUSE NEGATIVE (Negative)
== END 2024-12-09 08:18 | disposition home or self-care (01) ==
LOC: HO.LAB 08:17
PROVIDERS: PCP Nurse Practitioner Family; Visit Provider Nurse Practitioner Family
DX: J06.9 Acute upper respiratory infection, unspecified (principal)
CPT/HCPCS: 0241U

== ENCOUNTER 2024-12-09 08:17 | Outpatient (AMB) | payer OTHER, SELFPAY ==
--- NOTE | 2024-12-09 08:45 | AM.OFFWIN_ITS ---
Intake Vital Signs 12/09/24 08:51 Weight 227 lb BP 120/80 Blood Pressure Location Rt brachial Position Sitting Pulse 73 Pulse Source Pulse Oximeter Temp 98.9 F Temp Source Oral Pulse Oximetry (%) 96 Oxygen Delivery Method Room Air Intake Visit Reasons: EP Bronchitis/cough/chest kamaljit, sore throat,aches Intake Note: Patient here for body aches, mucus in throat, chest congestion and cough that has been present for about 3 days. Patient Tobacco Use Status: Never used Tobacco Allergies SEASONAL ALLERGIES Allergy (Mild, Uncoded 12/09/24 08:52) SNEEZING,ITCHY EYES Do you need a note to return to daycare/school/sports/work: No HPI HPI Comments History of Present Illness Details 64 y/o male patient who presents to the walk in clinic with c/o URI symptoms for 3 days. C/o Cough, chest congestion, and sore-throat. This past Friday, he went to a [place] with his . [facility] Medical History (Updated 12/09/24 @ 09:04 by Ashia Galvez NP) Acute respiratory disease Surgical History History of foot surgery History of colonoscopy History of knee surgery Family History Father HTN (hypertension) CVD (cardiovascular disease) Diabetes mellitus Cancer Substance use disorder Mother Diabetes mellitus CVD (cardiovascular disease) HTN (hypertension) Cancer Other Mental health disorder Social History Housing: House Alcohol intake: current Alcohol intake frequency: a few times a month Patient Tobacco Use Status: Never used Tobacco e-Cigarette/Vaping Use: Never Used Second Hand Smoke Exposure: No service: Yes Current occupational status: employed 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 Current occupational exposures/hazards: No Cognitive needs: No Hearing needs: No Vision needs: No Review of Systems Const All systems reviewed & are unremarkable except as noted in HPI and below Physical Exam Vital Signs: Last Vital Signs Temp 98.9 F 12/09/24 08:51 Pulse 73 12/09/24 08:51 BP 120/80 12/09/24 08:51 Pulse Ox 96 12/09/24 08:51 Oxygen Delivery Method Room Air 12/09/24 08:51 Const General: cooperative and no acute distress Orientation/consciousness: patient oriented x3 HEENT Head: Yes normocephalic Ears: external ears normal and TM abnormal with fluid behind the TM General nose exam: Normal external nose present and Nasal discharge present Face and sinus: Yes sinuses nontender Mouth: moist mucous membranes Resp Effort & Inspection: normal respiratory effort and able to speak in complete sentences Auscultation: clear to auscultation bilaterally, no crackles, no rales, no rhonchi and no wheezes Cardio Heart sounds: S1 normal heart sound present and S2 normal heart sound present Neuro General: patient oriented x3 Assessment & Plan Assessment & Plan (1) Acute respiratory disease: Code(s): J06.9 - Acute upper respiratory infection, unspecified Plan: Ordered SARs OTC cold/flu remedies Rest and hydrate well Acetaminophen for pain relief. Orders: Orders SARS-CoV2/FLU/RSV Today J06.9 - Acute upper respiratory infection, unspecified Coding Level of Care Code Est Pt Level 4 (22787) Diagnoses Acute respiratory disease J06.9 Time Spent (min) 20
[2024-12-09 08:51] VITALS: BP 120/80; PULSE 73; TEMP 37.2; O2SAT 96
== END 2024-12-09 09:20 | disposition home or self-care (01) ==
PROVIDERS: PCP Nurse Practitioner Family; Visit Provider Nurse Practitioner Family
DX: J06.9 Acute upper respiratory infection, unspecified (principal)

== ENCOUNTER 2025-02-01 08:42 | Outpatient (AMB) | payer OTHER, SELFPAY ==
[2025-02-01 08:49] VITALS: BMI 31.7
--- NOTE | 2025-02-01 08:49 | A.OFFVIS_ITS ---
Vital Signs 02/01/25 08:49 Height 5 ft 11 in Weight 227 lb BMI 31.7 Intake Visit Reasons: Inj-Left shoulder injection, last inj 11/02/24 Intake Note: Deep is a 64 year old male who presents with complaints of left shoulder pain. He describes his pain as sharp in nature. Most of the pain is along the superior and lateral aspects of his left shoulder. He reports mild weakness when lifting his left hand above shoulder height. He has had cortisone injections in the past which gave him fairly good relief. He has tried Tylenol and anti-inflammatory medicines which gave him minimal relief. Allergies SEASONAL ALLERGIES Allergy (Mild, Uncoded 02/01/25 08:50) SNEEZING,ITCHY EYES Medication List - Last Reconciled 02/01/25 by Deion Mcdaniel MD amlodipine 10 mg PO DAILY 90 days atorvastatin 20 mg PO BEDTIME tamsulosin 0.4 mg PO BEDTIME 90 days [facility] Medical History (Updated 12/09/24 @ 11:27 by Ashia Galvez NP) Influenza A Acute respiratory disease Surgical History History of foot surgery History of colonoscopy History of knee surgery Family History Father HTN (hypertension) CVD (cardiovascular disease) Diabetes mellitus Cancer Substance use disorder Mother Diabetes mellitus CVD (cardiovascular disease) HTN (hypertension) Cancer Other Mental health disorder Social History Housing: House Alcohol intake: current Alcohol intake frequency: a few times a month Patient Tobacco Use Status: Never used Tobacco e-Cigarette/Vaping Use: Never Used Second Hand Smoke Exposure: No service: Yes Current occupational status: employed 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 Current occupational exposures/hazards: No Cognitive needs: No Hearing needs: No Vision needs: No Physical Exam Vital Signs: BMI result Body Mass Index 31.7 Const Other: Well-nourished well-developed very friendly male awake alert and oriented x3 in no acute distress Extrem Other: Bilateral upper extremity examination shows good capillary refill, no skin lesions noted, normal sensation light touch Left shoulder examination shows almost full range of motion when compared to his right shoulder, 4/5 strength with supraspinatus testing, positive impingement signs, no instability Office Procedures AMB Joint Injection/Aspiration Joint Injection/Aspiration Primary Site: left shoulder Prep: site was prepped using aseptic technique Injected: 40 mg of, DepoMedrol and 1% plain lidocaine Procedure: The patient tolerated the procedure well Coding 05554 - Large joint Procedure code (CPT) selection complete Assessment & Plan Assessment & Plan (1) Impingement syndrome of left shoulder: Code(s): M75.42 - Impingement syndrome of left shoulder Category: Medical Plan Mr. Mosley presents with left shoulder pain due to impingement syndrome and rotator cuff tendinosis versus a small tear. The risks and benefits of a left shoulder cortisone injection were discussed at length with the patient. The patient wished to proceed. He tolerated the injection well. He will continue with his home stretching program. He will contact me prior to his follow-up appointment in 3 months should any questions or concerns arise. Feel free to call me at any time should questions regarding his orthopedic management arise. I spent 22 minutes in reviewing the patient's records and imaging studies, seeing the patient and documenting in the medical record. Orders: Orders AMB Joint Injection/Aspiration Today M75.42 - Impingement syndrome of left shoulder Coding Level of Care Code Est Pt Level 3 (22302) Complex EM visit Add On G2211 Diagnoses Impingement syndrome of left shoulder M75.42 CPT Codes Coding - 64045 Large joint: 25630 - Large joint ([id number])
--- OUTSIDE RECORDS SUMMARY | 2025-02-01 09:10 | XMS_ITS | Patient Health Record ---
Author Organization [facility] Address [address] [place] [address] Care Team Providers Care It Associate Name Role Phone LONG MARIANO Primary Care Provider Ye Roe Jr [phone] Allergies Allergen (clinical drug ingredient) Drug/Non Drug Allergy documented on EMR Reaction Allergy Type Onset Date Status cats (uncoded) Unknown Allergy Activ e anything organic (uncoded) Unknown Allergy Active Reason For Referral No Information Medications Medication SIG (Take, Route, Frequency, Duration) Notes Start Date End Date Status Simvastatin 10 MG 1 tablet in the even ing Orally Once a day Active amLODIPine Besy-Benazepril HCl 5-20 MG as directed Orally once a day Active Immunizations Vaccine Route Administration Date Status Comme nts Influenza Unknown 08/11/2019 Administered Problems Problem Type SNOMED Code ICD Code Onset Dates Problem Status W/U Status Risk Notes Problem [id number] Colon cancer screening (Z12.11) Active confirmed Problem 39804388 Right lower quadrant pain (R10.31) Active confirmed Plan Of Treatment Future Test Test Name Order Date COLONOSCOPY 01/19/2014 COLONOSCOPY 12/01/2019 Next Appt Details Provider Name:Ye du Jr, 04/07/2025 03:15:00 PM, [address], [address], [place], [address], Insurance Providers Payer Name Payer Address Payer Phone Subscriber Number Group Number Insured Name Patient Relationship to Insured Coverage Start Date Coverage End Date [employer] [place] [address] [address] [place] [address] [id number] EUGENIA HOWARD Self - patient is the insured Medical (General) History Medical History History ICD Code Colonoscopy 04/08/14, persona l history of colon polyps, five-year followup recommended. Elevated cholesterol Hypertension Denies [place],DM,CVA,Lung disease,renal dise ase Surgical History Surgery Date(Month/Year) broken collar bone mouth surgery for broken teeth knee surgery x2
== END 2025-02-01 09:01 | disposition home or self-care (01) ==
LOC: HO.HOS 08:42
PROVIDERS: PCP Nurse Practitioner Family; Visit Provider Orthopaedic Surgery
DX: M75.42 Impingement syndrome of left shoulder (principal)
CPT/HCPCS: 20610; 99213

== ENCOUNTER → 2025-02-01 08:42 | Outpatient (BNVA) | payer OTHER, SELFPAY | PROVIDERS: PCP Nurse Practitioner Family; Visit Provider Orthopaedic Surgery | DX: M75.42 Impingement syndrome of left shoulder (principal) | CPT/HCPCS: 20610; J1010; J2003 ==

== ENCOUNTER 2025-04-20 12:05 | Day surgery (SDC) | payer OTHER, SELFPAY ==
--- OUTSIDE RECORDS SUMMARY | 2025-04-18 14:06 | XMS_ITS | Patient Health Record ---
Author Organization [facility] Address [address] [place] [address] Care Team Providers Care Munitions Worker Name Role Phone LONG MARIANO Primary Care Provider Ye Roe Jr Unavailable Allergies Allergen (clinical drug ingredient) Drug/Non Drug Allergy documented on EMR Reaction Allergy Type Onset Date Status cats (uncoded) Unknown Allergy Activ e anything organic (uncoded) Unknown Allergy Active Reason For Referral No Information Medications Medication SIG (Take, Route, Frequency, Duration) Notes Start Date End Date Status Tamsulosin HCl 0.4 MG Oral for 90 Days Active amLODIPine Besylate 10 MG Oral for 90 Days Active ZyrTEC Allergy 10 MG 1 tablet Orally Onc e a day Active Ibuprofen 200 MG 1 tablet with food o r milk as needed Orally Three times a day prn Not-Taking Atorvastatin Calcium 20 MG Oral for 90 Days Active Immunizations Vaccine Route Administration Date Status Comme nts Influenza Unknown 08/11/2019 Administered Problems Problem Type SNOMED Code ICD Code Onset Dates Problem Status W/U Status Risk Notes Problem 990414021 Colon cancer screening (Z12.11) Active confirmed Problem 82653871 Right lower quadrant pain (R10.31) Active confirmed Problem Gastroesophageal reflux disease (881671245) GERD (gastroesopha geal reflux disease) (K21.9) Active confirmed Vital Signs Blood pressure diastolic 77 mm Hg 04/07/2025 Height 71 in 04/07/2025 Blood pressure systolic 111 mm Hg 04/07/2025 Weight 226 lbs 04/07/2025 BMI 31.52 kg/m2 04/07/2025 Encounters Encounter Location Date Provider Diagnosis [facility] [address] [place] [address] 04/07/2025 Ye Rangel Jr GERD (gastroesophageal reflux disease) K21.9 and Colon cancer screening Z12.11 [facility] [address] [place] [address] 04/18/2025 Ye Rangel Jr Assessments Encounter Date Diagnosis (ICD Code) Assessment Notes Treatment Notes Treatment Clinical Notes Section Notes 04/07/2025 Colon cancer screening (ICD-10 - Z12.11) 04/07/2025 GERD (gastroesophage al reflux disease) (ICD-10 - K21.9) Plan Of Treatment Future Test Test Name Order Date COLONOSCOPY 01/19/2014 COLONOSCOPY 12/01/2019 UPPER GI ENDOSCOPY 04/07/2025 COLONOSCOPY 04/07/2025 Next Appt Details Provider Name:Ye du Jr, 04/20/2025 01:50:00 PM, [address] [place] [address] , [place], [place], [phone], Insurance Providers Payer Name Payer Address Payer Phone Subscriber Number Group Number Insured Name Patient Relationship to Insured Coverage Start Date Coverage End Date [employer] [place] [address] [address] [place] [address] [id number] EUGENIA HOWARD Self - patient is the insured Medical (General) History Medical History History ICD Code Colonoscopy 04/08/14, persona l history of colon polyps, five-year followup recommended. Elevated cholesterol Hypertension Denies IN,DM,CVA,Lung disease,renal dise ase hx of kidney stones enviromental allergies enlarged prostate Surgical History Surgery Date(Month/Year) right ankle 2022 knee surgery x2 mouth surgery for broken teeth broken collar bone
[2025-04-18 14:28] VITALS: BMI 32.4
--- NOTE | 2025-04-19 10:07 | P.CONAN_ITS ---
HPI - Anesthesia Eval Consult details Narrative: 64yo M for Upper Endoscopy and Colonoscopy [facility] Active Problems Active Problems: All Active Problems Influenza A (Acute) Acute respiratory disease (Acute) Weak urinary stream (Acute) Nephrolithiasis (Acute) Dyslipidemia (Acute) Leukopenia (Acute) Nocturia (Acute) Complete rotator cuff tear of left shoulder (Acute) Impingement syndrome of left shoulder (Acute) Left shoulder pain (Acute) Tick bite (Acute) Pain and swelling of right ankle (Acute) Sprain of right ankle (Acute) Screening for prostate cancer (Acute) Physical exam (Acute) Cellulitis of left elbow (Acute) Chronic right SI joint pain (Acute) Lower back pain (Acute) Right hip pain (Acute) Somatic dysfunction of right sacroiliac joint (Acute) Past Medical History Medical History HTN (hypertension) Nephrolithiasis Dyslipidemia Back pain Family History Family History Father HTN (hypertension) CVD (cardiovascular disease) Diabetes mellitus Cancer Substance use disorder Mother Diabetes mellitus CVD (cardiovascular disease) HTN (hypertension) Cancer Other Mental health disorder Surgical History Surgical History History of foot surgery History of colonoscopy History of knee surgery Social History Social History Housing: House Are you a primary healthcare network pricing consultant to a significant other at home: No Do you presently have visiting nurse or other home services: No Alcohol intake: current Alcohol intake frequency: a few times a month Patient Tobacco Use Status: Never used Tobacco e-Cigarette/Vaping Use: Never Used Second Hand Smoke Exposure: No service: Yes Current occupational status: employed 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
[2025-04-20 12:38] VITALS: BMI 30.5
[2025-04-20 12:55] VITALS: BP 150/80; PULSE 59; RESP 16; TEMP 36.4; O2SAT 97
[2025-04-20] MEDS: Lactated Ringers 1,000 ML 100 ML IVCONT (13:16)
--- NOTE | 2025-04-20 13:46 | MHC.SHP ---
Pre-Procedural Eval Section A - 24 Hr Update-Section A only Date of Service: 04/20/25 The patient is an INPATIENT: No Changes since office visit: No Cold of Flu in the past 2 weeks, No New Medical Problems, No Changes in Medication and No Patient answered all questions The patient has been examined within 24 hours of the surgical procedure. The History & Physical has been completed within 30 days and I have reviewed it.: Yes Section B - Complete if H&P > 30 days Chief Complaint: Gastro-esophageal reflux disease without esophagit Allergies: Allergies Allergy/AdvReac Type Severity Reaction Status Date / Time cat dander (cats) Allergy Unknown Verified 04/19/25 12:51 SEASONAL ALLERGIES Allergy Mild SNEEZING,ITCHY Uncoded 02/01/25 08:50 EYES Plan I have reviewed the history and physical and performed a pertinent physical examination on my patient. No changes have occurred unless specified. Time Spent With Patient Time: Total time managing care of this patient today ____ minutes.
--- NOTE | 2025-04-20 14:05 | HO.ANESPROP2 ---
[facility] Active Problems Active Problems: All Active Problems (Updated 04/18/25 @ 14:26 by Natalie Deras RN) Influenza A (Acute) Acute respiratory disease (Acute) Weak urinary stream (Acute) Nephrolithiasis (Acute) Dyslipidemia (Acute) Leukopenia (Acute) Nocturia (Acute) Complete rotator cuff tear of left shoulder (Acute) Impingement syndrome of left shoulder (Acute) Left shoulder pain (Acute) Tick bite (Acute) Pain and swelling of right ankle (Acute) Sprain of right ankle (Acute) Screening for prostate cancer (Acute) Physical exam (Acute) Cellulitis of left elbow (Acute) Chronic right SI joint pain (Acute) Lower back pain (Acute) Right hip pain (Acute) Somatic dysfunction of right sacroiliac joint (Acute) Past Medical History Medical History HTN (hypertension) Nephrolithiasis Dyslipidemia Back pain Family History Family History Father HTN (hypertension) CVD (cardiovascular disease) Diabetes mellitus Cancer Substance use disorder Mother Diabetes mellitus CVD (cardiovascular disease) HTN (hypertension) Cancer Other Mental health disorder Family history of problems with anesthesia: No Surgical History Surgical History History of foot surgery History of colonoscopy History of knee surgery History of Problems with Anesthesia: No Social History Social History Housing: House Are you a primary critical care technician to a significant other at home: No Do you presently have visiting nurse or other home services: No Alcohol intake: current Alcohol intake frequency: a few times a month Patient Tobacco Use Status: Never used Tobacco e-Cigarette/Vaping Use: Never Used Second Hand Smoke Exposure: No Use of substances other than those prescribed or required for medical reasons: No Have you been hit, kicked, punched, or otherwise hurt by someone within the past year? 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 Current occupational exposures/hazards: No Cognitive needs: No Hearing needs: No Vision needs: No Meds Allergies Allergy/AdvReac Type Severity Reaction Status Date / Time cat dander (cats) Allergy Unknown Verified 04/19/25 12:51 SEASONAL ALLERGIES Allergy Mild SNEEZING,ITCHY Uncoded 02/01/25 08:50 EYES Active Medications: Current Medications Lactated Ringer's (Lr) 1,000 mls @ 100 mls/hr IVCONT .Q10H DARREN Last Admin: 04/20/25 13:16 Dose: 100 mls/hr Home Medications ?Medication ?Instructions ?Recorded ?Confirmed ?Last Taken ?Type Zyrtec 10 mg 04/19/25 Unknown History Exam Height,Weight and Vital Signs: Height 5 ft 11 in Weight 99.2 kg Last Vital Signs Temp 97.6 F 04/20/25 12:55 Pulse 59 04/20/25 12:55 Resp 16 04/20/25 12:55 BP 150/80 H 04/20/25 12:55 Pulse Ox 97 04/20/25 12:55 O2 Del Method Room Air 04/20/25 12:55 Airway Mallampati Class: II TM Dist: >3cm Neck ROM: Full Heart: RRR Lungs: CTA Assessment and Plan Assessment Anesthesia Assessment: Anesthesia Plan Discussed Final Anesthetic Review Family History of Problems with Anesthesia: No History of Problems with Anesthesia: No NPO: Yes ASA Class: II Final Preanesthetic Review: Meds/Allgs Chart Reviewed, Consent Obtained/Reviewed and Anes Risks/Benef Reviewed Patient Risk: Intermediate Procedure Risk: Low Anesthetic Plan Anesthetic Plan: MAC: Disposition: Standard PACU
[2025-04-20 14:36] VITALS: BP 109/71; PULSE 56; RESP 16; TEMP 36.3; O2SAT 99
[2025-04-20 14:51] VITALS: BP 112/75; PULSE 63; RESP 18; O2SAT 96
--- NOTE | 2025-04-20 14:57 | HO.POSTANES ---
Post Anesthesia Evaluation Post Anesthesia Evaluation Date of Service: 04/20/25 Vital Signs: Vital Signs Temp Pulse Resp BP Pulse Ox O2 Del Method 04/20/25 14:51 63 18 112/75 96 Room Air 04/20/25 14:36 97.3 F 56 16 109/71 99 Room Air 04/20/25 12:55 97.6 F 59 16 150/80 H 97 Room Air Anesthesia: Monitored Mental Status: Awake Pain Control: Satisfactory Nausea/Vomiting: None Hydration: Adequate Anesthesia-Related Issues: No Anes. Related Issues
--- NOTE | 2025-04-20 22:37 | OP_ITS ---
DATE OF SERVICE: 04/20/2025 SURGEON: Ye Rangel MD INDICATIONS: 1. Gastroesophageal reflux disease. 2. Colon cancer screening. PREOPERATIVE DIAGNOSIS: POSTOPERATIVE DIAGNOSIS: PROCEDURE PERFORMED: Upper endoscopy with biopsy, colonoscopy to the terminal ileum. ESTIMATED BLOOD LOSS: COMPLICATIONS: ANESTHESIA: Monitored anesthesia care. ASSISTANTS: SPECIMENS: DESCRIPTION OF PROCEDURE: A history and physical was performed. The risks and benefits of the procedure were explained to the patient. Informed consent was obtained. The patient was placed in the left lateral decubitus position. The Olympus video gastroscope was introduced into the esophagus, stomach, and duodenum. Examination was performed. The scope was removed. He was repositioned for colonoscopy. A digital rectal exam was performed and was found to be normal. The Olympus pediatric video colonoscope was introduced into the rectum and advanced to the cecum. The cecum was identified by transillumination, palpation, and identification of the ileocecal valve. Examination was performed. The scope was removed. He tolerated both procedures well and was taken to the recovery area in stable condition. FINDINGS: Upper endoscopy: 1. Esophagus: There was esophagitis involving the distal 1/3 of the esophagus with some linear erosions measuring approximately 3 x 10 mm. Biopsies were obtained from the EG junction, which was regular. 2. Stomach: The stomach showed some focal gastritis on the lesser curvature along the body. No ulcer was identified. No polyps were seen. Antral biopsies were obtained to rule out H pylori. 3. Duodenum: The bulb and 2nd portion were normal. Colonoscopy: The terminal ileum was examined and appeared normal. The visualized colonic mucosa was normal. The quality of the prep was good. No other polyps were identified. There was moderate diverticulosis of the sigmoid. Retroflexed examination showed some small internal hemorrhoids. IMPRESSION: 1. Esophagitis, erosive.. 2. Gastritis. 3. Normal colonoscopy. RECOMMENDATION: 1. Follow up as needed. 2. Repeat colonoscopy is recommended in 10 years for average-risk individuals. MD DANITZA Zaman/MATT / [id number] MTDD
== END 2025-04-20 15:21 | disposition home or self-care (01) ==
PROVIDERS: PCP Nurse Practitioner Family; Visit Provider Internal Medicine Gastroenterology
PROC: (CPT 45378; principal; 2025-04-20 13:50)
DX: Z12.11 Encounter for screening for malignant neoplasm of colon (principal); K57.30 Diverticulosis of large intestine without perforation or abscess without bleeding; K64.8 Other hemorrhoids; Z86.0101 Personal history of adenomatous and serrated colon polyps; K21.00 Gastro-esophageal reflux disease with esophagitis, without bleeding; K29.60 Other gastritis without bleeding; I10 Essential (primary) hypertension; E78.00 Pure hypercholesterolemia, unspecified; G47.33 Obstructive sleep apnea (adult) (pediatric); Z79.02 Long term (current) use of antithrombotics/antiplatelets; Z79.899 Other long term (current) drug therapy
CPT/HCPCS: 45378; 43239; 88305; 88313; 88342; J1596; J2003; J2704

== ENCOUNTER 2025-04-27 06:27 | Outpatient (REF) | payer OTHER, SELFPAY ==
--- NOTE | ~2025-04-27 | XR_ITS ---
EXAMINATION: XR KNEE, LEFT CLINICAL INFORMATION: M25.562 - Pain in left knee COMPARISON: None available. TECHNIQUE: Sitting AP, lateral, and sunrise view of the left knee. FINDINGS: There is mild medial joint space narrowing and small marginal osteophytes 3 joint components. There is no joint effusion. XR/XR knee LT 3V IMPRESSION: Mild osteoarthritis Electronically signed by: Vincenzo Bonilla MD 04/27/2025 03:33 PM EDT
--- OUTSIDE RECORDS SUMMARY | 2025-04-28 06:29 | XMS_ITS | Patient Health Record ---
Author Organization [facility] Address [address] [place] [address] Care Team Providers Care Cryptanalyst Name Role Phone LONG MARIANO Primary Care Provider Ye Roe Jr Unavailable [phone] Allergies Allergen (clinical drug ingredient) Drug/Non Drug Allergy documented on EMR Reaction Allergy Type Onset Date Status cats (uncoded) Unknown Allergy Activ e anything organic (uncoded) Unknown Allergy Active Results Component Value Reference Range Notes Pathology Reviewed date:04/26/2025 01:53:52 PM Interpretation: Performing Lab:[facility], [address] [place] [phone] Notes/Report: Reason For Referral No Information Medications [...] Problem Status W/U Status Risk Notes Problem 787673200 Colon cancer screening (Z12.11) Active confirmed Problem 47641301 Right lower quadrant pain (R10.31) Active confirmed Problem GERD (gastroesophage al reflux disease) (K21.9) Active confirmed Vital Signs Blood pressure diastolic 77 mm Hg 04/07/2025 Height 71 in 04/07/2025 Blood pressure systolic 111 mm Hg 04/07/2025 Weight 226 lbs 04/07/2025 BMI 31.52 kg/m2 04/07/2025 Encounters Encounter Location Date Provider Diagnosis [facility] [address] [place], [place] [id number] 04/20/2025 Ye Rangel Jr [facility] [address] [place] [phone] 04/07/2025 Ye Rangel Jr GERD (gastroesophageal reflux disease) K21.9 and Colon cancer screening Z12.11 [facility] [address] [facility] [address] [place] [phone] 04/18/2025 Ye Rangel Jr [facility] [address] [place] [address] [place] [phone] 04/21/2025 Ye Rangel Jr Assessments Encounter Date [...] 10:40:00 AM, [address], [address], [place], [address], Insurance Providers Payer Name Payer Address Payer Phone Subscriber Number Group Number Insured Name Patient Relationship to Insured Coverage Start Date Coverage End Date [employer] [address] [address] [address] [place] [address] [id number] 1 MARTANATALIAEUGENIA Self - patient is the [...]
== END 2025-04-27 06:28 | disposition home or self-care (01) ==
LOC: HO.HOSX 06:27
PROVIDERS: Visit Provider Orthopaedic Surgery
DX: M25.562 Pain in left knee (principal)
CPT/HCPCS: 73562

== ENCOUNTER 2025-04-27 10:11 | Outpatient (AMB) | payer OTHER, SELFPAY ==
--- NOTE | 2025-04-27 10:18 | MHC.OFFVIS ---
Vital Signs 04/27/25 10:19 Height 5 ft 11 in Weight 218 lb BMI 30.4 Intake Visit Reasons: Left knee pain and giving way Intake Note: Deep is a 64 year old male who presents with complaints of progressively worsening left knee pain and giving way. 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 He had a traumatic injury to his left knee. He denies any pain or mechanical symptoms prior to that injury. Has undergone two left knee arthroscopic surgeries in the past. The 1st was performed by Dr. Basurto in 2005. The 2nd was performed by Dr. Grady in 2016. He got fairly good relief from those procedures initially. He describes his pain as sharp in nature. Most of the pain is along the medial and lateral aspects of his knee. He has failed the last 6 weeks of conservative treatment. He has had injections in the past which gave him no relief. He has also done physical therapy exercises which aggravated his pain. He states that his left knee will give out several times per day. Allergies cat dander (cats) Allergy (Verified 04/27/25 10:22) Unknown SEASONAL ALLERGIES Allergy (Mild, Uncoded 04/27/25 10:22) SNEEZING,ITCHY EYES Medication List - Last Reconciled 04/27/25 by Deion Mcdaniel MD amlodipine 10 mg PO DAILY 90 days atorvastatin 20 mg PO BEDTIME tamsulosin 0.4 mg PO BEDTIME 90 days [Zyrtec 10 mg] [facility] Medical History HTN (hypertension) Nephrolithiasis Dyslipidemia Back pain Surgical History History of foot surgery History of colonoscopy History of knee surgery Family History Father HTN (hypertension) CVD (cardiovascular disease) Diabetes mellitus Cancer Substance use disorder Mother Diabetes mellitus CVD (cardiovascular disease) HTN (hypertension) Cancer Other Mental health disorder Social History Housing: House Are you a primary prompt care rn to a significant other at home: No Do you presently have visiting nurse or other home services: No Alcohol intake: current Alcohol intake frequency: a few times a month Patient Tobacco Use Status: Never used Tobacco e-Cigarette/Vaping Use: Never Used Second Hand Smoke Exposure: No service: Yes Current occupational status: employed 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 Current occupational exposures/hazards: No Cognitive needs: No Hearing needs: No Vision needs: No Physical Exam Vital Signs: BMI result Body Mass Index 30.4 Const Other: Well-nourished well-developed very friendly male awake alert and oriented x3 in no acute distress Extrem Other: Left knee examination shows a minimal effusion, mild crepitus with range of motion, tenderness along his medial joint line, positive Elvin's test, no instability Results Reviewed Results Reviewed: Standing full weight-bearing x-rays of the patient's left knee show mild diffuse joint space narrowing, no acute bony abnormalities Assessment & Plan Assessment & Plan (1) Tear of medial meniscus of left knee: Code(s): S83.242A - Other tear of medial meniscus, current injury, left knee, initial encounter Category: Medical Plan Mr. Mosley presents with recurrent left knee pain and mechanical symptoms most likely due to a recurrent medial meniscus tear. Thus, I will send the patient for an MRI of his left knee for further evaluation. I will see him back once the MRI is completed to discuss the findings and treatment options. Feel free to call me at any time should questions regarding his orthopedic management arise. I spent 21 minutes in reviewing the patient's records and imaging studies, seeing the patient and documenting in the medical record. Orders: Orders XR knee LT 3V Today M25.562 - Pain in left knee MR knee LT wo con Today S83.242A - Other tear of medial meniscus, current injury, left knee, initial encounter Coding Level of Care Code Est Pt Level 3 (52119) Complex EM visit Add On G2211 Diagnoses Tear of medial meniscus of left knee S83.242A
[2025-04-27 10:19] VITALS: BMI 30.4
--- OUTSIDE RECORDS SUMMARY | 2025-04-27 10:44 | XMS_ITS | Patient Health Record ---
Author Organization [facility] Address [address] [place] [address] Care Team Providers Care Salesperson Used Cars Name Role Phone LONG MARIANO Primary Care Provider Ye Roe Jr Unavailable Allergies Allergen (clinical drug ingredient) Drug/Non Drug Allergy documented on EMR Reaction Allergy Type Onset Date Status cats (uncoded) Unknown Allergy Activ e anything organic (uncoded) Unknown Allergy Active Results Component Value Reference Range Notes Pathology Reviewed date:04/26/2025 01:53:52 PM Interpretation: Performing Lab:[facility], [address] [place] [id number] Notes/Report: Reason For Referral No Information Medications Medication SIG (Take, Route, Frequency, Duration) Notes Start Date End Date Status Ibuprofen 200 MG 1 tablet with food o r milk as needed Orally Three times a day prn Not-Taking Omeprazole 20 MG 1 capsule 1/2 to 1 h our before morning meal Orally Once a day for 30 days 04/25/2025 Active ZyrTEC Allergy 10 MG 1 tablet [...] Problem Status W/U Status Risk Notes Problem 831209077 Colon cancer screening (Z12.11) Active confirmed Problem 38222043 Right lower quadrant pain (R10.31) Active confirmed Problem GERD (gastroesophage al reflux disease) (K21.9) Active confirmed Vital Signs Blood pressure diastolic 77 mm Hg 04/07/2025 Height 71 in 04/07/2025 Blood pressure systolic 111 mm Hg 04/07/2025 Weight 226 lbs 04/07/2025 BMI 31.52 kg/m2 04/07/2025 Encounters Encounter Location Date Provider Diagnosis [facility] Outpatient [address] [place], [place] [id number] 04/20/2025 Ye Rangel Jr [facility] [address] [place] [phone] 04/07/2025 Ye aRngel Jr GERD (gastroesophageal reflux disease) K21.9 and Colon cancer screening Z12.11 [facility] [address] [facility] [address] [place] [phone] 04/18/2025 Ye Rangel Jr [facility] [address] [place] [address] [place] [phone] 04/21/2025 Ye Rangel Jr Assessments Encounter Date Diagnosis (ICD Code) Assessment Notes Treatment Notes Treatment Clinical Notes Section Notes 04/07/2025 Colon cancer screening (ICD-10 - Z12.11) We discussed gastroesophageal reflux disease today. We discussed diet, lifestyle modifications, and weight management regarding the treatment of reflux. We recommended he continue these measures. A trial of a proton pump inhibitor can be undertaken. We discussed colonoscopy today. We discussed risks and benefits of the procedure today. He uhis.nderstands these and agrees to proceed. This will be scheduled at his convenience. 04/07/2025 GERD (gastroesopha geal reflux disease) (ICD-10 - K21.9) We discussed gastroesophageal reflux disease today. We discussed diet, lifestyle modifications, and weight management regarding the treatment of reflux. We recommended he continue these measures. A trial of a proton pump inhibitor can be undertaken. We discussed colonoscopy today. We discussed risks and benefits of the procedure today. He uhis.nderstands these and agrees to proceed. This will be scheduled at his convenience. Plan Of Treatment Future Test Test Name Order Date COLONOSCOPY 01/19/2014 COLONOSCOPY 12/01/2019 UPPER GI ENDOSCOPY 04/07/2025 COLONOSCOPY 04/07/2025 Next Appt Details Provider Name:Ye du Jr, 08/15/2025 10:40:00 AM, [address], [address], [place], [address], Insurance Providers Payer Name Payer Address Payer Phone Subscriber Number Group Number Insured Name Patient Relationship to Insured Coverage Start Date Coverage End Date [employer] [address] [address] [place] [address] [id number] 1 MARTANATALIAEUGENIA Self - patient is the insured Medical (General) History Medical History History ICD Code Colonoscopy4/20, normal, 5-year follow-u p for prior history of polyps. Elevated cholesterol Hypertension hx of kidney stones enviromental allergies BPH Obstructive sleep apnea Surgical History Surgery Date(Month/Year) right ankle 2022 knee surgery x2 mouth surgery for broken teeth broken collar bone
== END 2025-04-27 10:42 | disposition home or self-care (01) ==
LOC: HO.HOS 10:12
PROVIDERS: PCP Nurse Practitioner Family; Visit Provider Orthopaedic Surgery
DX: S83.242A Other tear of medial meniscus, current injury, left knee, initial encounter (principal)
CPT/HCPCS: 99213

== ENCOUNTER → 2025-04-27 10:12 | Outpatient (BNV) | payer OTHER, SELFPAY | PROVIDERS: Visit Provider Radiology Diagnostic Radiology | DX: M25.562 Pain in left knee (principal) | CPT/HCPCS: 73562 ==

== ENCOUNTER → 2025-05-11 07:14 | Outpatient (BNV) | payer OTHER, SELFPAY | PROVIDERS: Visit Provider Radiology Diagnostic Radiology | DX: M67.462 Ganglion, left knee (principal); M22.2X2 Patellofemoral disorders, left knee | CPT/HCPCS: 73721 ==

== ENCOUNTER 2025-05-11 07:15 | Outpatient (REF) | payer OTHER, SELFPAY ==
--- NOTE | ~2025-05-11 | MR_ITS ---
EXAMINATION: MRI LEFT KNEE WITHOUT CONTRAST HISTORY: S83.242A - Other tear of medial meniscus, current injury, left knee COMPARISON: Correlation is made with plain films of the left knee dated 04/27/2025. TECHNIQUE: Coronal T1 and fat-suppressed proton density, sagittal proton density and fat-suppressed proton density, and axial fat suppressed T2 weighted MR images of the left knee were obtained. FINDINGS: Bone marrow: Bone marrow signal intensity is normal. Joint effusion: There is no joint effusion. Bar's cyst: There is no Bar's cyst. Articular cartilage: There is a fissure involving the central patellar cartilage. Muscles/soft tissues: The visualized muscles demonstrate normal signal intensity. Anterior cruciate ligament: Intact Posterior cruciate ligament: Intact. There is a 1.2 x 1.0 x 1.4 cm ganglion associated with the PCL. Medial collateral ligament: Intact Lateral collateral ligament: Intact Medial meniscus: There is a tiny focus of increased T2 signal intensity in the posterior horn which contacts the inferior joint surface, consistent with a tear (series 10, image 10). The anterior horn is intact. Lateral meniscus: Intact Flexor mechanism: The popliteus, gastrocnemius, and hamstring tendons are intact. Quadriceps tendon: Intact Patellar tendon: Intact Patellar retinacula: Intact MR/MR knee LT wo con IMPRESSION: 1. Fissure involving the central patellar cartilage. 2. 1.2 x 1.0 x 1.4 cm ganglion cyst associated with the PCL. 3. Findings suspicious for a tiny tear involving the posterior horn of the medial meniscus as described.. Electronically signed by: Adrien Muro MD 05/11/2025 07:59 AM EDT
== END 2025-05-11 07:16 | disposition home or self-care (01) ==
LOC: HO.MRI 07:15
PROVIDERS: Visit Provider Orthopaedic Surgery
DX: S83.242A Other tear of medial meniscus, current injury, left knee, initial encounter (principal)
CPT/HCPCS: 73721

== ENCOUNTER 2025-05-16 10:54 | Outpatient (AMB) | payer OTHER, SELFPAY ==
[2025-05-16 11:06] VITALS: BMI 30.4
--- NOTE | 2025-05-16 11:06 | A.OFFVIS_ITS ---
Vital Signs 05/16/25 11:06 Height 5 ft 11 in Weight 218 lb BMI 30.4 Intake Visit Reasons: OV- Left knee MRI review Intake Note: Deep is a 64 year old male who presents with complaints of progressively worsening left knee pain and giving way. 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 He had a traumatic injury to his left knee. He denies any pain or mechanical symptoms prior to that injury. Has undergone two left knee arthroscopic surgeries in the past. The 1st was performed by Dr. Basurto in 2005. The 2nd was performed by Dr. Grady in 2016. He got fairly good relief from those procedures initially. He describes his pain as sharp in nature. Most of the pain is along the medial and lateral aspects of his knee. He has failed the last 6 weeks of conservative treatment. He has had injections in the past which gave him no relief. He has also done physical therapy exercises which aggravated his pain. He states that his left knee will give out several times per day. vitals 128/75 54 Heart Rate Allergies cat dander (cats) Allergy (Verified 05/16/25 11:08) Unknown SEASONAL ALLERGIES Allergy (Mild, Uncoded 04/27/25 10:22) SNEEZING,ITCHY EYES Medication List - Last Reconciled 05/16/25 by Deion Mcdaniel MD amlodipine 10 mg PO DAILY 90 days atorvastatin 20 mg PO BEDTIME omeprazole 20 mg PO DAILY simvastatin 10 mg PO BEDTIME tamsulosin 0.4 mg PO BEDTIME 90 days [Zyrtec 10 mg] [facility] Medical History HTN (hypertension) Nephrolithiasis Dyslipidemia Back pain Surgical History History of foot surgery History of colonoscopy History of knee surgery Family History Father HTN (hypertension) CVD (cardiovascular disease) Diabetes mellitus Cancer Substance use disorder Mother Diabetes mellitus CVD (cardiovascular disease) HTN (hypertension) Cancer Other Mental health disorder Social History Housing: House Are you a primary housekeeper child care to a significant other at home: No Do you presently have visiting nurse or other home services: No Alcohol intake: current Alcohol intake frequency: a few times a month Patient Tobacco Use Status: Never used Tobacco e-Cigarette/Vaping Use: Never Used Second Hand Smoke Exposure: No service: Yes Current occupational status: employed 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 Current occupational exposures/hazards: No Cognitive needs: No Hearing needs: No Vision needs: No Physical Exam Vital Signs: BMI result Body Mass Index 30.4 Const Other: Well-nourished well-developed very friendly male awake alert and oriented x3 in no acute distress Extrem Other: Left knee examination shows a minimal effusion, mild crepitus with range of motion, tenderness along his medial joint line, positive Elvin's test, no instability Results Reviewed Results Reviewed: Standing full weight-bearing x-rays of the patient's left knee show mild diffuse joint space narrowing, no acute bony abnormalities MRI of the patient's left knee shows mild diffuse degenerative changes as well as a tear of the medial meniscus and multiple bands of thickened plica Assessment & Plan Assessment & Plan (1) Tear of medial meniscus of left knee: Code(s): S83.242A - Other tear of medial meniscus, current injury, left knee, initial encounter Category: Medical Plan Mr. Mosley presents with progressively worsening left knee pain and mechanical symptoms due to early degenerative joint disease, a medial meniscus tear and plica syndrome. I had a lengthy discussion with the patient regarding the treatment options. At this point he has failed continued non operative treatments. The risks and benefits of left knee arthroscopic surgery were discussed at length with the patient. The patient wishes to proceed with surgery later this year. Surgery will most likely involve left knee arthroscopic partial medial meniscectomy and left knee arthroscopic plica excision. The patient will contact my office to pick a surgery date when he chooses to do so. He will follow-up as instructed. Feel free to call me at any time should questions regarding his orthopedic management arise. I spent 20 minutes in reviewing the patient's records and imaging studies, seeing the patient and documenting in the medical record. Coding Level of Care Code Est Pt Level 3 (89569) Complex EM visit Add On G2211 Diagnoses Tear of medial meniscus of left knee S83.242A
--- OUTSIDE RECORDS SUMMARY | 2025-05-16 12:05 | XMS_ITS | Patient Health Record ---
Author Organization [facility] Address [address] [place] [address] Care Team Providers Care Batch Trucker Name Role Phone LONG MARIANO Primary Care Provider Ye Roe Jr Unavailable Allergies Allergen (clinical drug ingredient) Drug/Non Drug Allergy documented on EMR Reaction Allergy Type Onset Date Status cats (uncoded) Unknown Allergy Activ e anything organic (uncoded) Unknown Allergy Active Results Component Value Reference Range Notes Pathology Reviewed date:04/26/2025 01:53:52 PM Interpretation: Performing Lab:[facility], [address] [place] [phone] Notes/Report: Reason For Referral No Information Medications [...] Problem Status W/U Status Risk Notes Problem [id number] Colon cancer screening (Z12.11) Active confirmed Problem 43052296 Right lower quadrant pain (R10.31) Active confirmed Problem GERD (gastroesophage al reflux disease) (K21.9) Active confirmed Vital Signs Blood pressure diastolic 77 mm Hg 04/07/2025 Height 71 in 04/07/2025 Blood pressure systolic 111 mm Hg 04/07/2025 Weight 226 lbs 04/07/2025 BMI 31.52 kg/m2 04/07/2025 Encounters Encounter Location Date Provider Diagnosis [facility] Outpatient [address] [place], [place] [phone] 04/20/2025 Ye Rangel Jr Colon cancer screening Z12.11 and Gastro-esophageal reflux disease without esophagitis K21.9 [facility] [address] [place] [phone] 04/07/2025 Ye Rangel Jr GERD (gastroesophageal reflux disease) K21.9 and Colon cancer screening Z12.11 [facility] [address] [place] [phone] 04/18/2025 Ye Rangel Jr [facility] [address] [phone] 04/21/2025 Ye Rangel Jr Assessments Encounter Date Diagnosis (ICD Code) Assessment Notes Treatment Notes Treatment Clinical Notes Section Notes 04/20/2025 Colon cancer screening (ICD-10 - Z12.11) 04/20/2025 Gastro-esophage al reflux disease without esophagitis (ICD-10 - K21.9) 04/07/2025 Colon cancer screening (ICD-10 - Z12.11) [...] be scheduled at his convenience. 04/07/2025 GERD (gastroesophage al reflux disease) (ICD-10 - K21.9) We discussed [...] COLONOSCOPY 04/07/2025 Next Appt Details Provider Name:Ye mckeonguillermo Otoole, 08/15/2025 10:40:00 AM, [address] [place] [address], [address], [place], [address], Insurance Providers Payer Name Payer Address Payer Phone Subscriber Number Group Number Insured Name Patient Relationship to Insured Coverage Start Date Coverage End Date [employer] [place] [address] [address] [place] [address] [id number] ANITA EUGENIA Self - patient is the insured Medical (General) History Medical History History ICD Code Colonoscopy4/20, normal, 5-year follow-u p for prior history of polyps. Elevated cholesterol Hypertension hx of kidney stones enviromental allergies BPH Obstructive sleep apnea Surgical History Surgery Date(Month/Year) right ankle 2022 knee surgery x2 mouth surgery for broken teeth broken collar bone
== END 2025-05-16 11:38 | disposition home or self-care (01) ==
LOC: HO.HOS 10:56
PROVIDERS: Visit Provider Orthopaedic Surgery
DX: S83.242A Other tear of medial meniscus, current injury, left knee, initial encounter (principal)
CPT/HCPCS: 99213

== ENCOUNTER 2025-06-07 10:54 | Outpatient (AMB) | payer OTHER, SELFPAY ==
--- NOTE | 2025-06-07 10:58 | A.OFFVIS_ITS ---
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 Patient states he has had 3 sleep studies in past(Last done about 6-10yr ago. stated gasping/apnea/snoring. Looking for preventative/Inspire. Bad allergies/ congested at night. Would like ENT referral. Accompanied by: Self / Same As Patient Allergies cat dander (cats) Allergy (Verified 06/07/25 11:02) Unknown SEASONAL ALLERGIES Allergy (Mild, Uncoded 04/27/25 10:22) SNEEZING,ITCHY EYES HPI Comments Details: 64 year old male referred to us for an evaluation of sleep apnea. He is a retired [employer] with exposure to chemicals and neuro-toxins. He has had 6 sleep studies in the past, he snores loudly, stops breathing for a maximum of 41 seconds as recorded by his on his phone. He has allergies and takes zyrtec daily at bedtime. His nasal passages and throat gets congested with phlegm at night and he gasps for air. He gets ear infections bilaterally every time he swims. Hearing is stable, he does have Presbycusis and sensorineural hearing loss, r >l. He had a deviated septum due to multiple sports injuries. He denies polyps or cysts. He has an enlarged prostate wakes up 2-3x for the bathroom at night. He denies morning headaches. Denies bruxism, and jaw pain. He has RLS symptoms, due to injuries. R. ankle partial amputation, L. knee arthroscopic and medial meniscus tear with scar tissue build up. Sensation is diminished laterally and dorsal aspect of r. foot. 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 tendon tear with pins and reconstruction of r. calcaneous. His mood and diet is stable. Memory is stable at baseline. FH+ Dad passed at 52 due to [place]. Mom is 85 well and living. Sister dx with lupus at 53 SLE. [facility] Medical History HTN (hypertension) Nephrolithiasis Dyslipidemia Back pain Surgical History History of foot surgery History of colonoscopy History of knee surgery Family History Father HTN (hypertension) CVD (cardiovascular disease) Diabetes mellitus Cancer Substance use disorder Mother Diabetes mellitus CVD (cardiovascular disease) HTN (hypertension) Cancer Other Mental health disorder Social History Housing: House Are you a primary healthcare educator to a significant other at home: No Do you presently have visiting nurse or other home services: No Alcohol intake: current Alcohol intake frequency: a few times a month Patient Tobacco Use Status: Never used Tobacco e-Cigarette/Vaping Use: Never Used Second Hand Smoke Exposure: No service: Yes Current occupational status: employed 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 Current occupational exposures/hazards: No Cognitive needs: No Hearing needs: No Vision needs: No Physical Exam Vital Signs: Last Vital Signs Pulse 69 06/07/25 10:59 BP 120/82 06/07/25 10:59 Pulse Ox 95 06/07/25 10:59 Oxygen Delivery Method Room Air 06/07/25 10:59 BMI result Body Mass Index 31.8 Const General: cooperative, comfortable and no acute distress Orientation/consciousness: patient oriented x3 HEENT Face and sinus: Yes face symmetric Throat: Yes other ([place]pti score is 3) Eyes Pupils: Equal, round and reactive pupils present Neck Neck: Yes full ROM Resp Effort & Inspection: normal respiratory effort and able to speak in complete sentences Neuro General: patient oriented x3 and moves all extremities Cranial nerves: Yes Facial sensation intact/muscles of mastication intact, Yes Equal, round and reactive pupils present, Yes Normal accommodation reflex present, Yes Nystagmus not present, Yes Normal facial strength present, Yes Midline tongue present, Yes Ability to bilaterally rotate head present and Yes Ability to bilaterally elevate shoulders present Cognition (Neuro): normal cognition Gait exam (Neuro): Normal gait present Motor exam (neuro): 5/5 motor strength present throughout and Normal motor muscle tone present throughout Deep tendon reflexes (DTR's): Right triceps reflex intensity grade: 2+, Left triceps reflex intensity grade: 2+, Rt Biceps (C5, C6): 2+, Left biceps reflex intensity grade: 2+, Right brachioradialis reflex intensity grade: 2+, Left brachioradialis reflex intensity grade: 2+, Right patellar reflex intensity grade: 2+, Left patellar reflex intensity grade: 2+, Right ankle reflex intensity grade: 2+ and Left ankle reflex intensity grade: 2+ Psych Appearance: grossly normal Speech and movement: Normal speech and movement present Thought process: Normal thought process present Thought content: Normal thought content present Assessment & Plan Assessment & Plan (1) Excessive daytime sleepiness: Code(s): G47.19 - Other hypersomnia Category: Medical (2) History of deviated nasal septum: Code(s): Z87.09 - Personal history of other diseases of the respiratory system Category: Medical Plan HST to r/o frank Labs to r/o deficiencies ENT eval to evaluate for airway polyps/ cysts obstructions due to deviated septum. Orders: Orders RT home sleep study 06/07/25 G47.19 - Other hypersomnia Comprehensive Met. Panel 06/07/25 G47.19 - Other hypersomnia Homocysteine 06/07/25 G47.19 - Other hypersomnia, G47.9 - Sleep disorder, unspecified, R53.83 - Other fatigue Vitamin B12 and Folate 06/07/25 G47.19 - Other hypersomnia Complete Blood Count no Diff 06/07/25 G47.19 - Other hypersomnia Ferritin 06/07/25 G47.19 - Other hypersomnia Hemoglobin A1c 06/07/25 G47.19 - Other hypersomnia Magnesium 06/07/25 G47.19 - Other hypersomnia Methylmalonic Acid 06/07/25 G47.19 - Other hypersomnia, G47.9 - Sleep disorder, unspecified, R53.83 - Other fatigue TSH reflex Free T4 06/07/25 G47.19 - Other hypersomnia Vitamin D 25-OH Total 06/07/25 G47.19 - Other hypersomnia Referrals Ear/Nose/Throat Referral Z87.09 - Personal history of other diseases of the respiratory system Patient Instructions: Sleep Hygiene provided: set a scheduled bedtime and wake time to help regulate the circadian rhythm and balance the release of pituitary hormones. Sleep in a dark room, temperatures below 68 degrees, and no devices n bed. Limit caffeinated products 6 hours prior to bed, and limit fluids 2-4 hours prior to bed. Gentle night yoga, diffusing essential oils, and playing soft music can be relaxing. Coding Level of Care Code New Pt Level 4 (75895) Diagnoses Excessive daytime sleepiness G47.19 History of deviated nasal septum Z87.09 Sleep Questionnaire Difficulty falling asleep: No Difficulty staying asleep?: No Number of arousals: 2-3 for nocturia. Snoring: Yes Witnessed apneas: Yes Gasping arousals: Yes Nocturia: Yes GERD: Yes Vivid dreams: No Acting out dreams: No Abnormal behavior in sleep: No Abnormal movements in sleep: No Morning headaches: No Excessive daytime sleepiness: Yes Daytime naps: Yes (30min) Restless legs: Yes Hallucinations: No Sleep paralysis: No Drop attacks: No Sleep Study: Yes (in lab sleep studies 3 over 6-7 years ago.) CPAP: No
[2025-06-07 10:59] VITALS: BP 120/82; PULSE 69; O2SAT 95; BMI 31.8
--- OUTSIDE RECORDS SUMMARY | 2025-06-07 12:01 | XMS_ITS | Patient Health Record ---
Author Organization [facility] Address [address] [place] [address] Care Team Providers Care Dermatology Nurse Practitioner Name Role Phone LONG MARIANO Primary Care Provider Ye Roe Jr Unavailable [phone] Allergies Allergen (clinical drug ingredient) Drug/Non Drug Allergy documented on EMR Reaction Allergy Type Onset Date Status cats (uncoded) Unknown Allergy Activ e anything organic (uncoded) Unknown Allergy Active Results Component Value Reference Range Notes Pathology Reviewed date:04/26/2025 01:53:52 PM Interpretation: Performing Lab:[facility], [address] [place] [id number] Notes/Report: Reason For Referral No Information Medications [...] Problem Status W/U Status Risk Notes Problem [id number] Colon cancer screening (Z12.11) Active confirmed Problem 39045353 Right lower quadrant pain (R10.31) Active confirmed Problem Gastroesophageal reflux disease (491244926) GERD (gastroesopha geal reflux disease) (K21.9) Active confirmed Vital Signs Blood pressure diastolic 77 mm Hg 04/07/2025 Height 71 in 04/07/2025 Blood pressure systolic 111 mm Hg 04/07/2025 Weight 226 lbs 04/07/2025 BMI 31.52 kg/m2 04/07/2025 Encounters Encounter Location Date Provider Diagnosis [facility] Outpatient [address] [place], [place] [phone] 04/20/2025 Ye Rangel Jr Colon cancer screening Z12.11 and Gastro-esophageal reflux disease without esophagitis K21.9 [facility] [address] [place] [phone] 04/07/2025 Ye Rangel Jr GERD (gastroesophageal reflux disease) K21.9 and Colon cancer screening Z12.11 [facility] [address] [place] [phone] 04/18/2025 Ye Rangel Jr [facility] [address] [place] [phone] 04/21/2025 Ye Rangel Jr Assessments Encounter Date [...] COLONOSCOPY 04/07/2025 Next Appt Details Provider Name:Ye Magali du Jr, 08/15/2025 10:40:00 AM, [address] [place] [address], [address], [place], [address], Insurance Providers Payer Name Payer Address Payer Phone Subscriber Number Group Number Insured Name Patient Relationship to Insured Coverage Start Date Coverage End Date [employer] [place] [address] [address] [place] [address] [id number] 1 ANITA EUGENIA Self - patient is [...]
== END 2025-06-07 11:57 | disposition home or self-care (01) ==
LOC: HO.HSMS 10:55
PROVIDERS: PCP Nurse Practitioner Family; Visit Provider Physician Assistant Medical
DX: G47.19 Other hypersomnia (principal); Z87.09 Personal history of other diseases of the respiratory system
CPT/HCPCS: 99204

== ENCOUNTER 2025-06-22 08:58 | Outpatient (AMB) | payer OTHER, SELFPAY ==
--- OUTSIDE RECORDS SUMMARY | 2025-04-20 09:50 | XMS_ITS ---
Author Organization [facility] Address [address] [place] [address] Care Team Providers Care Lath Tier Name Role Phone LONG MARIANO Primary Care Provider Ye Roe Jr REASON FOR VISIT gerd,screening Medications Medication SIG (Take, Route, Frequency, Duration) Notes Start Date End Date Status Ibuprofen 200 MG 1 tablet with food o r milk as needed Orally Three times a day prn Not-Taking ZyrTEC Allergy 10 MG 1 tablet Orally Onc e a day Active amLODIPine Besylate 10 MG Oral for 90 Days Active Tamsulosin HCl 0.4 MG Oral for 90 Days Active Atorvastatin Calcium 20 MG Oral for 90 Days Active Encounters Encounter Location Date Provider Diagnosis [facility] Out[address] [place], [place] [phone] 04/20/2025 Ye Rangel Jr Colon cancer screening Z12.11 and Gastro-esophageal reflux disease without esophagitis K21.9 Assessments Encounter Date Diagnosis (ICD Code) Assessment Notes Treatment Notes Treatment Clinical Notes Section Notes 04/20/2025 Colon cancer screening (ICD-10 - Z12.11) 04/20/2025 Gastro-esophagea l reflux disease without esophagitis (ICD-10 - K21.9) Plan Of Treatment Next Appt Details Provider Name:Ye du Jr, 08/15/2025 10:40:00 AM, [address], [address], [place], [address], Progress Notes * EUGENIA HOWARD WDOB:1960 (64 yo M)Acc No.[id number]:04/20/2025 EGD and COL/MAC Patient: EUGENIA ROBERTO Provider: Marion Rangel MD :1960 A ge:64 Y S ex:Male Date:04/20/2025 Address:[address] [place] [address] Pcp:LONG MARIANO Subjective: * Chief Complaints: * [...] * Procedure Codes: 4 5378 DIAGNOSTIC COLONOSCOPY, 31283 UPPER GI ENDOSCOPY, BIOPSY * * The named appointment provid er may or may not be the originator of this progress note, and it is not deemed complete until electronically signed by the appointment provider. Sign off status: Pending * Provider: Marion Rangel MD Date: 0 04/20/2025 Generated for Rehana call/Treva/Debraitting on: 0 06/22/2025 09:26 AM EDT
--- NOTE | 2025-06-22 08:59 | MHC.PC.OV ---
Vital Signs 06/22/25 09:00 Height 5 ft 11 in Weight 227 lb BMI 31.7 BP 118/74 Blood Pressure Location Lt brachial Position Sitting Respiration 16 Pulse 67 Pulse Source Pulse Oximeter Temp 98.3 F Temp Source Oral Pulse Oximetry (%) 98 Oxygen Delivery Method Room Air Intake Visit Reasons: ANNUAL Business Strategist Required: No Accompanied by: Self / Same As Patient Allergies cat dander (cats) Allergy (Verified 06/22/25 09:04) Unknown SEASONAL ALLERGIES Allergy (Mild, Uncoded 04/27/25 10:22) SNEEZING,ITCHY EYES Tobacco use date assessed: 06/22/25 Dental Screening Dental Screen Date: 06/22/25 Did you have a dental visit in the last 12 months?: Yes Did you have a dental problem in the last 6 months where you did not have access to dental care?: No Was dental information given to patient?: Yes HPI ANNUAL HPI Details History of Present Illness The patient is a 64-year-old male presenting with a physical exam. He reports numbness in his right foot, particularly affecting the lateral aspect and the four right toes, following ankle and foot surgery. He is acclimating to the numbness and has not reported any significant changes recently. The patient is actively engaged in his health maintenance, seeing an digital specialist for shoulder and knee issues. He also consults with a urologist, and a PSA test is planned as part of his preventative care. Additionally, he is under evaluation by sleep medicine for possible sleep apnea. Health Maintenance - PSA screening planned - Evaluation for sleep apnea ongoing - colon screen UTD Social History - Recently retired and remains fairly active Review of Systems - General: Denies fever, chills - Cardiovascular: Denies chest pain - Respiratory: Denies dyspnea - Gastrointestinal: Denies abdominal pain, blood in stool, constipation, diarrhea - Neurological: Reports numbness in right foot - Psychiatric: Denies suicidal or homicidal ideation Physical Exam General: Cooperative, healthy appearing, comfortable, no acute distress and well developed Orientation: Patient oriented x3 Limitations: Numbness to right foot from ankle surgery, especially from his 4 right toes running laterally Head: Normal to inspection Ears: Hearing grossly normal bilaterally Nose: Normal external nose present Face and sinus: Normal facial exam Eyes: Appearance normal, both eyes and all related structures Neck: Normal visual inspection and Yes full ROM Respiratory: Normal respiratory effort and able to speak in complete sentences. Clear to auscultation bilaterally Cardiovascular: Regular rate and rhythm. Normal S1 and S2 GI: Normal to inspection. Soft to palpation and nontender : Testicles without masses/lesions and no hernias appreciated Skin: No rashes or lesions noted Neuro: Patient oriented x3 Extremities: Normal to inspection except for numbness to right foot from ankle surgery Results PLAN: 1. Numbness In The Right Foot Post-Surgery The patient reports numbness in the right foot, particularly affecting the lateral aspect and the four right toes, following ankle and foot surgery. He is acclimating to the numbness and has not reported any significant changes recently. 2. Preventative Care: Psa Screening A PSA test is planned as part of the patient's preventative care. 3. Preventative Care: Evaluation For Sleep Apnea The patient is under evaluation by sleep medicine for possible sleep apnea. Discussion Notes labs ordered [facility] Medical History HTN (hypertension) Nephrolithiasis Dyslipidemia Back pain Surgical History History of foot surgery History of colonoscopy History of knee surgery Family History Father HTN (hypertension) CVD (cardiovascular disease) Diabetes mellitus Cancer Substance use disorder Mother Diabetes mellitus CVD (cardiovascular disease) HTN (hypertension) Cancer Other Mental health disorder Social History Housing: House Are you a primary home health care physician to a significant other at home: No Do you presently have visiting nurse or other home services: No Alcohol intake: current Alcohol intake frequency: a few times a month Patient Tobacco Use Status: Never used Tobacco e-Cigarette/Vaping Use: Never Used Second Hand Smoke Exposure: No service: Yes Current occupational status: employed 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 1. Little interest or pleasure in doing things: not at all 2. Feeling down, depressed, or hopeless: not at all 3. Trouble falling or staying asleep, or sleeping too much: more than half the days 4. Feeling tired or having little energy: not at all 5. Poor appetite or overeating: not at all 6. Feeling bad about yourself - or that you are a failure or have let yourself or your family down: not at all 7. Trouble concentrating on things, such as reading the newspaper or watching television: not at all 8. Moving or speaking so slowly that other people could have noticed. Or the opposite - being so fidgety or restless that you have been moving around a lot more than usual: not at all 9. Thoughts that you would be better off or of hurting yourself in some way: not at all Total score: 2 Depression Screening Interpretation: Negative Depression Screening Done: Yes 70327 - PHQ-9 Billing: Yes Source: Developed by Drs. Adrien Olguin, Mable Jason, Suman Ovalle and colleagues, with an educational tom from [employer]. Thrive Questionnaire Date Thrive assessed: 06/15/24 I am a: Patient What is your living situation today?: I have a steady place to live Within the past 12 months, did the food you bought not last and you didn't have the money to get more?: Never true Within the past 12 months, did you worry whether your food would run out before you got money to buy more?: Never true Do you have trouble paying for medicines?: I choose not to answer this question Do you have trouble getting transportation to medical appointments?: No Do you have trouble paying your heating and electricity bill?: No Do you have trouble taking care of your child, family member or friend?: No Do you have trouble with day-to-day activities such as bathing, preparing meals, shopping, managing finances, etc.?: No Are you currently unemployed and looking for a job?: I choose not to answer this question Are you interested in more education?: No Please select the resources that you would like help with: None Currently or been in a relationship where the following occur: No concerns reported THRIVE Score: 0 AUDIT C Alcohol Use Questionnaire (AUDIT-C) 1. How often do you have a drink containing alcohol?: 2-4 times a month 2. How many drinks containing alcohol do you have on a typical day when you are drinking?: 1 or 2 3. How often do you have six or more drinks on one occasion?: Never Total Score: 2 Score Reviewed/Action Taken: Yes SIDDHARTHA-7 AMB Questionnaire SIDDHARTHA-7 Date SIDDHARTHA - 7 assessed: 06/22/25 Feeling nervous, anxious, or on edge: 0 = Not at all Not being able to stop or control worryin = Not at all Worrying too much about different things: 0 = Not at all Trouble relaxin = Not at all Being so restless that it is hard to sit still: 0 = Not at all Becoming easily annoyed or irritable: 0 = Not at all Feeling afraid as if something awful might happen: 0 = Not at all Total SIDDHARTHA-7 score (0-4 normal; 5-9 mild; 10-14 moderate; 15-21 severe): 0 Source: Developed by Drs. Adrien Olguin, Mable Jason, Suman Ovalle and colleagues, with an educational tom from [employer]. SIDDHARTHA-7 Assessment Billing SIDDHARTHA-7 Assessment Tool: SIDDHARTHA-7 Assessment 57269 Physical exam (Primary Care) Vital Signs: Last Vital Signs Temp 98.3 F 06/22/25 09:00 Pulse 67 06/22/25 09:00 Resp 16 06/22/25 09:00 BP 118/74 06/22/25 09:00 Pulse Ox 98 06/22/25 09:00 Oxygen Delivery Method Room Air 06/22/25 09:00 BMI result Body Mass Index 31.7 Tobacco/Smoking Status: Tobacco use Status Tobacco use date assessed 06/22/25 06/22/25 09:07 Patient Tobacco Use Status Never used Tobacco 06/22/25 09:07 e-Cigarette/Vaping Use Never Used 06/22/25 09:07 PHQ-9: PHQ-9 Score PHQ-9: Total score 2 06/22/25 09:07 Depression Screening Interpretation: Negative Thrive Assessment: Date of Thrive Assessment Date Thrive assessed 06/15/24 06/22/25 09:07 Currently or been in a relationship where the following occur: No concerns reported Coding Level of Care Code Est Pt Prev Care 40-64y(13200) Diagnoses Lower back pain M54.50 Chronic right SI joint pain M53.3; G89.29 Additional Codes SIDDHARTHA-7 Assessment Billing - SIDDHARTHA-7 Assessment Tool: SIDDHARTHA-7 Assessment 76512 ([id number]) PHQ-9 - 60486 - PHQ-9 Billing: Yes ([id number]) Assessment & Plan Assessment & Plan (1) Lower back pain: Code(s): M54.50 - Low back pain, unspecified Category: Medical (2) Chronic right SI joint pain: Code(s): M53.3 - Sacrococcygeal disorders, not elsewhere classified; G89.29 - Other chronic pain Category: Medical Plan . Orders: Referrals Massage Therapy Referral G89.29 - Other chronic pain, M53.3 - Sacrococcygeal disorders, not elsewhere classified, M54.50 - Low back pain, unspecified
[2025-06-22 09:00] VITALS: BP 118/74; PULSE 67; RESP 16; TEMP 36.8; O2SAT 98; BMI 31.7
--- OUTSIDE RECORDS SUMMARY | 2025-06-22 09:26 | XMS_ITS ---
Author Name [facility] Organization Unknown Problems Problem Status Onset Date Problem Type Date of Resoluti on Source Personal history of unspecified disease of respiratory system active EncounterDiagnosisAct [facility]
--- OUTSIDE RECORDS SUMMARY | 2025-06-22 09:26 | XMS_ITS | Clinical Summary ---
Author Organization [facility] Address [address] [place] [address] Care Team Providers Care Railroad Carman Name Role Phone Unavailable Primary Care Provider Unavailabl e Encounters Date Type Department Care Team Description 06/10/2025 Transcribe Orders [facility] System, Provider Not In Personal history of unspecified disease of respiratory system (Primary Dx) from Last 3 Months Social History Tobacco Use Types Packs/Day Years Used Date Smoking Tobacco: Never Assessed Sex and Gender Information Value Date Recorded Sex Assigned at Not on file Legal Sex Male 6:53 PM EST Gender Identity Not on file Sexual Orientation Not on file Plan of Treatment Health Maintenance Due Date Last Done Comments Hepatitis C Virus Screening 1961 HIV Screening 1974 DTaP/Tdap/Td Vaccines (1 - Tdap) 1980 Pneumococcal Vaccines 50+ (1 of 1 - PCV) 2011 Zoster (Shingles) Vaccine (1 of 2) 2011 COVID-19 Vaccine ( - 2023-2 5 season) 2024 RSV Vaccine 60 years and old er and Patients (1 - 1-dose 75+ series) 2036 Hepatitis B Vaccines Aged Out No long er eligible based on patient's age to complete this topic
--- OUTSIDE RECORDS SUMMARY | 2025-06-22 09:26 | XMS_ITS | Patient Health Record ---
Author Organization [facility] Address [address] [place] [address] Care Team Providers Care Log Turner Name Role Phone LONG MARIANO Primary Care Provider Ye Roe Jr Unavailable Allergies Allergen (clinical drug ingredient) Drug/Non Drug Allergy documented on EMR Reaction Allergy Type Onset Date Status cats (uncoded) Unknown Allergy Activ e anything organic (uncoded) Unknown Allergy Active Results Component Value Reference Range Notes Pathology Reviewed date:04/26/2025 01:53:52 PM Interpretation: Performing Lab:[facility], [address] [place] [id number] Notes/Report: Reason For Referral No Information Medications [...] Problem Status W/U Status Risk Notes Problem [id number] Colon cancer screening (Z12.11) Active confirmed Problem 03524299 Right lower quadrant pain (R10.31) Active confirmed Problem GERD (gastroesophage al reflux disease) (K21.9) Active confirmed Vital Signs Blood pressure diastolic 77 mm Hg 04/07/2025 Height 71 in 04/07/2025 Blood pressure systolic 111 mm Hg 04/07/2025 Weight 226 lbs 04/07/2025 BMI 31.52 kg/m2 04/07/2025 Encounters Encounter Location Date Provider Diagnosis [facility] Out[facility] [address] [place], [place] [phone] 04/20/2025 Ye Rangel Jr Colon cancer screening Z12.11 and Gastro-esophageal reflux disease without esophagitis K21.9 [facility] [address] [place] [phone] 04/07/2025 Ye Rangel Jr GERD (gastroesophageal reflux disease) K21.9 and Colon cancer screening Z12.11 [facility] [address] [place] [phone] 04/18/2025 Ye Rangel Jr [facility] [address] [phone] 04/21/2025 Ye Rangel Jr Assessments Encounter Date [...] Provider Name:Ye mckeonguillermo Otoole, 08/15/2025 10:40:00 AM, [address] [place] [address], [address], [place], [phone], Insurance Providers Payer Name Payer Address Payer Phone Subscriber Number Group Number Insured Name Patient Relationship to Insured Coverage Start Date Coverage End Date [employer] [place] [address] [address] [place] [address] [id number] 1 ANITA EUGENIA Self - patient is [...]
== END 2025-06-22 10:40 | disposition home or self-care (01) ==
LOC: HO.HMCC 08:59
PROVIDERS: PCP Nurse Practitioner Family; Visit Provider Nurse Practitioner Family
DX: Z00.00 Encounter for general adult medical examination without abnormal findings (principal); M54.50 Low back pain, unspecified; M53.3 Sacrococcygeal disorders, not elsewhere classified; G89.29 Other chronic pain

== ENCOUNTER → 2025-06-22 08:58 | Outpatient (BNVA) | payer OTHER, SELFPAY | PROVIDERS: PCP Nurse Practitioner Family; Visit Provider Nurse Practitioner Family | DX: Z00.00 Encounter for general adult medical examination without abnormal findings (principal); M54.50 Low back pain, unspecified; M53.3 Sacrococcygeal disorders, not elsewhere classified; G89.29 Other chronic pain; R20.0 Anesthesia of skin; G47.30 Sleep apnea, unspecified | CPT/HCPCS: 96127 ==

== ENCOUNTER 2025-08-02 11:00 | Outpatient (RCR) | payer OTHER, SELFPAY ==
--- NOTE | 2025-07-11 13:04 | MHC.PT.EP ---
[facility] [place] Office [place] Office [place] Office [address] Miguel Ángel Frank [address] [phone] F: [phone] F: [phone] F: [phone] F: [phone] Physical Therapy Plan of Care Date of Evaluation: 07/11/25 Date of Surgery: Diagnosis: CHRONIC Rt SI Jt DYSFUNCTION, LBP Assessment: 64 YO MALE REF TO PT FOR CHRONIC Rt SI Jt PAIN, LBP-> PROGRESSIVE SINCE Rt ANKLE INJURY AND RECONSTRUCTION 2 YRS AGO. HE HAS A H/O Rt GROIN STRAIN IN HIS 20s WELL Lt KNEE SURG x 2. HE IS CURENTLY RETIRED. OBJECTIVE FINDINGS: (+) LUMBOPELVIC ASYMM W LLI EFFECT, (+) SI Jt DYSF, DECR MADDIE HIP ER/IR, LIMITED Lt > Rt HS FLEXIB, DECR ACTIV/ STRENGTH IN Rt GLUTE, AND PAIN IN HIS Rt LS-> HIP REGION. HE HAS RESIDUAL SENSORY AND STRENGTH DEFICITS IN Rt DISTAL LE. HE IS MOTIVATED FOR PT AND WE DISCUSSED PT POC TO ADDRESS THE ABOVE FINDINGS- Frequency and Duration: The patient will be seen 2 x WK x 5 WKS Short Term Goals: DECR Rt SI JT PAIN TO 2-3/10 PROMOTE LS SYMMETRY-> ACTIVATE Rt GLUTE COMPLEX INCR Lt > Rt HS/ POSTERIOR CHAIN FLEXIB AND, CAUTIOUSLY, HIP IR/ER AND TRUNK ROM INITIATE HEP Intermediate Goals: Pt INDEP HEP AND SELF SX MGMT TECHN-> GYM ROUTINE Pt STEF WFL FUNCTIONAL SQUAT MECHANICS W 3:3 SIMUL ADLs IMPROVED / FUNCTIONAL STRENGTH Rt GLUTE COMPLEX Rt SLS x 10 SEC Treatment Plan: Modalities to reduce pain, spasms and effusion. Manual therapy to restore motion and function. Therapeutic exercise to improve strength and flexibility. Neuromuscular re-education for posture and balance. Therapeutic activities to return to functional activities of daily living. Electronically signed by: HERO VALLADARES,PT Please sign and return to therapist. Thank you for your referral.
--- NOTE | 2025-10-05 07:22 | MHC.PT.DC ---
[facility] [place] Office [place] Office [place] Office [address] Miguel Ángel Frank [address] [phone] F: [phone] F: [phone] F: [phone] F: [phone] Physical Therapy Discharge Report Diagnosis: CHRONIC Rt SI Jt DYSFUNCTION, LBP Date of Surgery: Date of Evaluation: 07/11/25 Date of Discharge: 10/05/25 Treatments to Date: 5 Cancellations to Date: 3 No Shows to Date: Discharge Status: Improved Function Independent with HEP Patient Elected to Stop Discharge Summary: DEREJE WAS ADV W CORE STABILIZATION EXER AND DISPLAYING MORE EFFICIENT ENGAGEMENT-> HE STILL REPORTED INTERM HS SPASMS DUE TO GLUTE FATIGUE; HE WAS MOTIVATED W HIS HEP AND RESOLVING SXS. DEREJE'S LAST ATTENDED PT APPT WAS ON 08/02/25-> A FORMAL REASSESSMENT WAS NOT PERF DUE TO THE Pt CAN LAST SCHED PT APPT. HE WAS BENEFITTING JAMES PT... Electronically signed by: HERO VALLADARES,PT Please sign and return to therapist. Thank you for your referral.
== END 2025-10-05 07:22 | disposition home or self-care (01) ==
LOC: HO.PT 11:00
PROVIDERS: PCP Nurse Practitioner Family; Visit Provider Nurse Practitioner Family
DX: M53.3 Sacrococcygeal disorders, not elsewhere classified (principal); G89.29 Other chronic pain; M99.04 Segmental and somatic dysfunction of sacral region; M54.50 Low back pain, unspecified
CPT/HCPCS: 97110; 97140; 97162; 97530

== ENCOUNTER 2025-08-15 09:51 | Outpatient (REF) | payer OTHER, SELFPAY ==
[2025-08-15 10:19] LABS: MANUAL DIFF FLAG NO
[2025-08-15 10:50] LABS: Hemoglobin A1C 151.0896 umol/L
[2025-08-15 10:59] LABS: Appearance Urine Clear; Glucose Urine UA Negative (Negative); PH 5.5 (5.0-9.0); Specific Gravity - Urine 1.025 (1.005-1.025)
[2025-08-15 11:00] LABS: Hematocrit 44.5 % (42.0-52.0); Hemoglobin 14.9 g/dl (14.0-18.0); Imm Gran Abs Auto 0.05 X10*3/uL (0.00-0.03); Imm Gran Pct Auto 1.0 % (0.0-0.4); Lymphocytes Absolute Auto 1.1 X10*3/uL (1.2-4.9); Mean Corpuscular HGB Conc 33.5 g/dl (31.0-36.0); Mean Corpuscular Hemoglobin 29.3 pg (27.0-33.0); Mean Corpuscular Volume 87.4 fL (80.0-98.0); NRBC Abs Auto 0.000 X10*3/uL (0.0-0.012); NRBC Pct Auto 0.0 /100WBC (0.0-0.2); Platelet Count 219 X10*3/uL (160-400); Red Blood Count 5.09 X10*6/uL (4.60-5.80); White Blood Count 4.8 X10*3/uL (4.8-10.8)
[2025-08-15 11:40] LABS: Alanine Aminotransferase 66 U/L (0-40); Albumin Level 4.8 g/dL (3.5-5.0); Alkaline Phosphatase 61 U/L (39-117); Anion Gap 12 (12-20); Aspartate Amino Transferase 35 U/L (5-37); Blood Urea Nitrogen 12 mg/dL (9-16); Calcium 9.4 mg/dL (8.4-10.2); Carbon Dioxide 24 mmol/L (22-29); Chloride 107 mmol/L (96-108); Cholesterol 197 mg/dL (<200); Estimated Glomerular Filt Rate > 60; Ferritin 376 ng/mL (20-250); HDL Cholesterol 56 mg/dL (>40); Magnesium 2.1 mg/dL (1.6-2.6); Potassium 4.4 mmol/L (3.3-5.1); Sodium 139 mmol/L (135-145); Total Protein 7.2 g/dL (6.5-8.0); Triglycerides 87 mg/dL (<150)
[2025-08-15 11:46] LABS: Folate 10.0 ng/mL (> or = 4.0); Vitamin B12 295 pg/mL (200-900)
== END 2025-08-15 09:52 | disposition home or self-care (01) ==
LOC: HO.LAB 09:51
PROVIDERS: Physician Assistant Medical; PCP Nurse Practitioner Family; Visit Provider Nurse Practitioner Family
DX: Z00.00 Encounter for general adult medical examination without abnormal findings (principal); Z12.5 Encounter for screening for malignant neoplasm of prostate; Z13.6 Encounter for screening for cardiovascular disorders; Z13.1 Encounter for screening for diabetes mellitus; Z13.21 Encounter for screening for nutritional disorder; G47.19 Other hypersomnia; R53.83 Other fatigue; G47.9 Sleep disorder, unspecified
CPT/HCPCS: 36415; 80053; 80061; 81003; 82306; 82607; 82728; 82746; 83036; 83090; 83735; 83921; 84153; 84443; 85025

== ENCOUNTER → 2025-08-23 07:49 | Outpatient (REF) | payer OTHER, SELFPAY ==
--- OUTSIDE RECORDS SUMMARY | 2025-04-20 09:50 | XMS_ITS ---
Author Organization [facility] Address [address] [place] [address] Care Team Providers Care Cordwainer Name Role Phone LONG MARIANO Primary Care Provider Ye Roe Jr REASON FOR VISIT gerd,screening Medications Medication SIG (Take, Route, Frequency, Duration) Notes Start Date End Date Status Ibuprofen 200 MG 1 tablet with food o r milk as needed Orally Three times a day prn Not-Taking ZyrTEC Allergy 10 MG 1 tablet Orally Onc e a day Active amLODIPine Besylate 10 MG Oral; Duration: 90 Days Active Tamsulosin HCl 0.4 MG Oral; Duration: 90 Days Active Atorvastatin Calcium 20 MG Oral; Duration: 90 Days Acti ve Encounters Encounter Location Date Provider Diagnosis [facility] Outpatient [address] [place] [phone] 04/20/2025 Ye Rangel Jr Colon cancer screening Z12.11 and Gastro-esophageal reflux disease without esophagitis K21.9 Assessments Encounter Date Diagnosis (ICD Code) Assessment Notes Treatment Notes Treatment Clinical Notes Section Notes 04/20/2025 Colon cancer screening (ICD-10 - Z12.11) 04/20/2025 Gastro-esophagea l reflux disease without esophagitis (ICD-10 - K21.9) Plan Of Treatment Next Appt Details Provider Name:Ye du Jr, 08/17/2026 01:15:00 PM, [address], [address], [place], [address], Progress Notes * EUGENIA HOWARD WDOB:1960 (65 yo M)Acc No.[id number]:04/20/2025 EGD and COL/MAC Patient: EUGENIA ROBERTO Provider: Marion Rangel MD :1960 A ge:64 Y S ex:Male Date:04/20/2025 Address:[address] [place] [address] Pcp:LONG MARIANO Subjective: * Chief Complaints: * 1 . Gerd,screening. * Medical History: * Medications: T aking ZyrTEC Allergy 10 MG Tablet 1 tablet Orally Once a day , Taking amLODIPine Besylate 10 MG Tablet Oral , Taking Tamsulosin HCl 0.4 MG Capsule Oral , Taking Atorvastatin Calcium 20 MG Tablet Oral , Not-Taking/PRN Ibuprofen 200 MG Tablet 1 tablet with food or milk as needed Orally Three times a day , Notes to Pharmacist: prn Objective: * Vitals: Assessment: * Assessment: 1. C olon cancer screening - Z12.11 (Primary) 2 . G khadijah-esophageal reflux disease without esophagitis - K21.9 Plan: * Treatment: * Procedure Codes: 4 5378 DIAGNOSTIC COLONOSCOPY, [address]008 UPPER GI ENDOSCOPY, BIOPSY * * The named appointment provid er may or may not be the originator of this progress note, and it is not deemed complete until electronically signed by the appointment provider. Sign off status: Pending * Provider: Marion Rangel MD Date: 0 04/20/2025 Generated for Rehana call/Treva/Debraitting on: 1 07:53 AM EDT
--- OUTSIDE RECORDS SUMMARY | 2025-08-15 06:40 | XMS_ITS ---
Author Organization [facility] Address [address] [place] [address] Care Team Providers Care Stage Set Designer Name Role Phone LONG MARIANO Primary Care Provider Ye Roe Jr Allergies Allergen (clinical drug ingredient) Drug/Non Drug Allergy documented on EMR Reaction Allergy Type Onset Date Status cats (uncoded) Unknown Allergy Activ e anything organic (uncoded) Unknown Allergy Active REASON FOR VISIT Patient presents today for lópez's esophagus Medications Medication SIG (Take, Route, Frequency, Duration) Notes Start Date End Date Status amLODIPine Besylate 10 MG Oral; Duration: 90 Days Active Atorvastatin Calcium 20 MG Oral; Duration: 90 Days Acti ve Tamsulosin HCl 0.4 MG Oral; Duration: 90 Days Active Ibuprofen 200 MG 1 tablet with food o r milk as needed Orally Three times a day prn Not-Taking Omeprazole 20 MG 1 capsule 1/2 to 1 h our before morning meal Orally Once a day; Duration: 30 days 04/25/2025 Active ZyrTEC Allergy 10 MG 1 tablet Orally Onc e a day Active Vital Signs Temperature 97.1 degrees Fahrenheit 08/15/20 25 Blood pressure systolic 001 mm Hg 08/15/20 25 Blood pressure diastolic 01 mm Hg 025 Height 71 in 08/15/2025 Weight 233.0 lbs 08/15/2025 BMI 32.49 kg/m2 08/15/2025 Encounters Encounter Location Date Provider Diagnosis [facility] [address] [place] [address] 08/15/2025 Ye Rangel Jr Plan Of Treatment Next Appt Details Provider Name:Ye Magali du Jr, 08/17/2026 01:15:00 PM, [address], [address], [place], [address], Progress Notes * EUGENIA HOWARD WDOB:1960 (65 yo M)Acc No.[id number]:08/15/2025 Progress Notes Patient: EUGENIA ROBERTO W Provider: Marion Rangel MD :1960 A ge:65 Y S ex:Male Date:08/15/2025 Address:[address] [place], [place] [id number] Pcp:LONG MARIANO Subjective: * Chief Complaints: * 1 . Patient presents today for lópez's esophagus. * Medical History: C olonoscopy02/13, normal, 5-year follow-up for prior history of polyps., Elevated cholesterol, Hypertension, Hx of kidney stones, Enviromental allergies, BPH, Obstructive sleep apnea. * Surgical History: b roken collar bone , mouth surgery for broken teeth , knee surgery x2 , right ankle 2022. * Family History: F ather: . M other: alive, diagnosed with HTN (hypertension), Heart disease. paternal aunt c olon cancer no family hx of liver. * Social History: T obacco Use: T obacco Use/Smoking A re you a: nonsmoker. D rugs/Alcohol: A lcohol Screen P oints: 2, Interpretation: Negative. M iscellaneous: M arital status: . 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 * Medications: T aking ZyrTEC Allergy 10 MG Tablet 1 tablet Orally Once a day , Taking amLODIPine Besylate 10 MG Tablet Oral , Taking Tamsulosin HCl 0.4 MG Capsule Oral , Taking Atorvastatin Calcium 20 MG Tablet Oral , Taking Omeprazole 20 MG Capsule Delayed Release 1 capsule 1/2 to 1 hour before morning meal Orally Once a day , Not-Taking/PRN Ibuprofen 200 MG Tablet 1 tablet with food or milk as needed Orally Three times a day , Notes to Pharmacist: prn, Medication List reviewed and reconciled with the patient * Allergies: A nything Organic, Cats. Objective: * Vitals: W t:233.0lbs, Ht: 71 in, BMI:32.49Index, BP:001/01mm Hg, Temp:97.1, Ht-cm: 180.34, Wt-k.69. Assessment: Plan: * Treatment: * Preventive Medicine: Counseling: C are goal follow-up plan: A vicente Normal BMI Follow-up D ietary management education, guidance, and counseling, B [place] management provided Y es. * * The named appointment provid er may or may not be the originator of this progress note, and it is not deemed complete until electronically signed by the appointment provider. Sign off status: Pending * Provider: Marion Rangel MD Date: Generated for Rehana call/Treva/Debraitting on: 07:53 AM EDT
--- OUTSIDE RECORDS SUMMARY | 2025-08-23 07:54 | XMS_ITS | Clinical Summary ---
Author Organization [facility] Address [address] [place] [address] Care Team Providers Care Fur Liner Name Role Phone Josh Bazan MD Primary Care Provider Allergies No known active allergies Medications amLODIPine (NORVASC) 10 MG tablet 07/15/2025 Active OMEprazole (PriLOSEC) 20 MG capsule 07/18/2025 Active tamsulosin (FLOMAX) 0.4 MG capsule 04/22/2025 Active triamcinolone (NASACORT AQ) 55 MCG/ACT Aerosol nasal sprayIndication s:Deviated nasal septum,Hypertro phy of nasal turbinates 2 sprays into each nostril daily. 1 each 3 07/29/2025 5 Active Active Problems Problem Noted Date Diagnosed Date Class 1 obesity 07/29/2025 Encounters Date Type Department Care Team Description 07/29/2025 10:00 AM EDT Clinical Support [facility] [address] [address] Grabiel Wing MD Obstructive sleep apnea (adult) (pediatric) (Primary Dx); Deviated nasal septum; Hypertrophy of nasal turbinates; Non-seasonal allergic rhinitis due to pollen 06/10/2025 Transcribe Orders [facility] System, Provider Not In Personal history of unspecified disease of respiratory system (Primary Dx) from Last 3 Months Social History Tobacco Use Types Packs/Day Years Used Date Smoking Tobacco: Never Passive Smoke Exposure: Never Smokeless Tobacco: Never Tobacco Cessation:Counseling Given: Not Answered Alcohol Use Standard Drinks/Week Comments Yes 0 (1 standard drink = 0.6 oz pur e alcohol) Sex and Gender Information Value Date Recorded Sex Assigned at Not on file Legal Sex Male 6:53 PM EST Gender Identity Not on file Sexual Orientation Not on file Last Filed Vital Signs Vital Sign Reading Time Taken Comments Blood Pressure - - Pulse - - Temperature - - Respiratory Rate - - Oxygen Saturation - - Inhaled Oxygen Concentration - - Weight 102 kg (224 lb) 07/29/2025 10:02 AM EDT Height 180.3 cm (5' 11 ) 07/29/2025 10:02 AM EDT Body Mass Index 31.24 07/29/2025 10:02 AM EDT Plan of Treatment Upcoming Encounters Date Type Department Care Team (Late st Contact Info) Description 09/26/2025 9:00 AM EST Office Visit [facility] [address] [place] [phone] Grabiel Wing MD [address] [place] [address] Health Maintenance Due Date Last Done Comments Hepatitis C Virus Screening 1960 HIV Screening 1974 DTaP/Tdap/Td Vaccines (1 - Tdap) 1980 Colonoscopy 2006 Pneumococcal Vaccines 50+ (1 of 1 - PCV) 2011 RSV Vaccine 50 years and old er and Patients (1 - Risk 50-74 years 1-dose series) 2011 Zoster (Shingles) Vaccine (1 of 2) 2011 Influenza Vaccine 05/27/2025 COVID-19 Vaccine (1 - 2023-2 5 season) 2025 Hepatitis B Vaccines Aged Out No long er eligible based on patient's age to complete this topic Insurance [facility] HMO Care Teams Fur Liner Relationship Specialty Start Date End Date Josh Bazan MD [address] [place] [address] PCP - General Family Medicine 07/29/25
--- OUTSIDE RECORDS SUMMARY | 2025-08-23 07:54 | XMS_ITS | Patient Health Record ---
Author Organization [facility] Address [address] [place] [address] Care Team Providers Care Technical Coordinator Name Role Phone LONG MARIANO Primary Care Provider Ye Roe Jr Unavailable [phone] Allergies Allergen (clinical drug ingredient) Drug/Non Drug Allergy documented on EMR Reaction Allergy Type Onset Date Status cats (uncoded) Unknown Allergy Activ e anything organic (uncoded) Unknown Allergy Active Results Component Value Reference Range Notes Pathology Reviewed date:04/26/2025 01:53:52 PM Interpretation: Performing Lab:[facility], [address] [place] [phone] Notes/Report: Reason For Referral No Information Medications Medication SIG (Take, Route, Frequency, Duration) Notes Start Date End Date Status amLODIPine Besylate 10 MG Oral; Duration: 90 Days Active ZyrTEC Allergy 10 MG 1 tablet Orally Onc e a day Active Atorvastatin Calcium 20 MG Oral; Duration: 90 Days Acti ve Tamsulosin HCl 0.4 MG Oral; Duration: 90 Days Active Ibuprofen 200 MG 1 tablet with food o r milk as needed Orally Three times a day prn Not-Taking Omeprazole 20 MG 1 capsule 1/2 to 1 h our before morning meal Orally Once a day; Duration: 30 days 04/25/2025 Active Immunizations Vaccine Route Administration Date Status Comme nts Influenza Unknown 08/11/2019 Administered Influenza Unknown 08/15/2025 Administered Problems Problem Type SNOMED Code ICD Code Onset Dates Problem Status W/U Status Risk Notes Problem Colon cancer screening (664862661) Colon cancer screening (Z12.11) Active confirmed Problem Right lower quadrant pain (444460677) Right lower quadrant pain (R10.31) Active confirmed Problem Gastroesophageal reflux disease (664976617) GERD (gastroesopha geal reflux disease) (K21.9) Active confirmed Vital Signs Temperature 97.1 degrees Fahrenheit 08/15/2025 Blood pressure diastolic 01 mm Hg 08/15/2025 Height 71 in 08/15/2025 Blood pressure systolic 001 mm Hg 08/15/2025 Weight 233.0 lbs 08/15/2025 BMI 32.49 kg/m2 08/15/2025 Encounters Encounter Location Date Provider Diagnosis [facility] [address] [place] [phone] 04/20/2025 Ye Rangel Jr Colon cancer screening Z12.11 and Gastro-esophageal reflux disease without esophagitis K21.9 [facility] [address] [place] [phone] 08/15/2025 Ye Rangel Jr [facility] [address] [place] [phone] 04/07/2025 Ye Rangel Jr GERD (gastroesophageal reflux disease) K21.9 and Colon cancer screening Z12.11 [facility] [address] [place] [phone] 04/18/2025 Ye Rangel Jr [facility] [address] [place] [phone] 04/21/2025 Ye Rangel Jr Assessments Encounter Date [...] 04/07/2025 COLONOSCOPY 04/07/2025 Next Appt Details Provider Name:Yemita du , 08/17/2026 01:15:00 PM, [address] [place] [address], [address], [place], [address], Insurance Providers Payer Name Payer Address Payer Phone Subscriber Number Group Number Insured Name Patient Relationship to Insured Coverage Start Date Coverage End Date [employer] [address] [address] [place] [address] [id number] 1 EUGENIA HOWARD Self - patient is [...]
== END ==
LOC: HO.SL 07:49
PROVIDERS: PCP Nurse Practitioner Family; Visit Provider Physician Assistant Medical
DX: G47.19 Other hypersomnia (principal)
CPT/HCPCS: 95806

== ENCOUNTER → 2025-08-23 08:01 | Outpatient (BNV) | payer OTHER, SELFPAY | PROVIDERS: PCP Nurse Practitioner Family; Visit Provider Internal Medicine | DX: G47.33 Obstructive sleep apnea (adult) (pediatric) (principal) | CPT/HCPCS: 95806 ==

== ENCOUNTER 2025-09-20 08:24 | Outpatient (AMB) | payer OTHER, SELFPAY ==
--- NOTE | 2025-09-20 08:26 | A.OFFVIS_ITS ---
Vital Signs 09/20/25 08:27 Height 5 ft 11 in Weight 233 lb 6 oz BMI 32.5 BP 124/86 Blood Pressure Location Rt brachial Position Sitting Pulse 85 Pulse Source Pulse Oximeter Pulse Oximetry (%) 95 Oxygen Delivery Method Room Air Intake Visit Reasons: Sleep study f/u Intake Note: Patient presents follow up LOUISE. HST in chart(AHI-61, PUJA-69%. APAP 5- 20cm/Urgent titration). Accompanied by: Self / Same As Patient Allergies cat dander (cats) Allergy (Verified 09/20/25 08:32) Unknown SEASONAL ALLERGIES Allergy (Mild, Uncoded 04/27/25 10:22) SNEEZING,ITCHY EYES HPI Comments Details: 64 year old male referred to us for an evaluation of sleep apnea. Jul 2025 HST in chart AHI-61, PUJA-69%, reviewed with pt in detail. Nocturnal hypoxemia with O2 desaturation <88% for 9min. Will start APAP 5-20cm once urgent titration is completed to determine optimal pressures for therapy. He is a retired [employer] with exposure to chemicals and neuro-toxins. He has had 6 sleep studies in the past, he snores loudly, stops breathing for a maximum of 41 seconds as recorded by his on his phone. He has allergies and takes zyrtec daily at bedtime. His nasal passages and throat gets congested with phlegm at night and he gasps for air. He gets ear infections bilaterally every time he swims. Hearing is stable, he does have Presbycusis and sensorineural hearing loss, r >l. He had a deviated septum due to multiple sports injuries. He denies polyps or cysts. He has an enlarged prostate wakes up 2-3x for the bathroom breaks. He denies morning headaches. Denies bruxism, and clenching of the jaw. He has RLS symptoms, due to injuries. R. ankle partial amputation, L. knee arthroscopic and medial meniscus tear with scar tissue build up. Sensation is diminished laterally and dorsal aspect of r. foot. 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 tendon tear with pins, reconstruction of r. calcaneous. His mood and diet is stable. Memory is stable at baseline. FH+ Dad passed at 52 due to ND. Mom is 85 well and living. Sister dx with lupus at 53 SLE. [facility] Medical History HTN (hypertension) Nephrolithiasis Dyslipidemia Back pain Surgical History History of foot surgery History of colonoscopy History of knee surgery Family History Father HTN (hypertension) CVD (cardiovascular disease) Diabetes mellitus Cancer Substance use disorder Mother Diabetes mellitus CVD (cardiovascular disease) HTN (hypertension) Cancer Other Mental health disorder Social History Housing: House Are you a primary manager career to a significant other at home: No Do you presently have visiting nurse or other home services: No Alcohol intake: current Alcohol intake frequency: a few times a month Patient Tobacco Use Status: Never used Tobacco e-Cigarette/Vaping Use: Never Used Second Hand Smoke Exposure: No service: Yes Current occupational status: employed 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 Current occupational exposures/hazards: No Cognitive needs: No Hearing needs: No Vision needs: No Physical Exam Vital Signs: Last Vital Signs Pulse 85 09/20/25 08:27 BP 124/86 09/20/25 08:27 Pulse Ox 95 09/20/25 08:27 Oxygen Delivery Method Room Air 09/20/25 08:27 BMI result Body Mass Index 32.5 Const General: cooperative, comfortable and no acute distress Orientation/consciousness: patient oriented x3 HEENT Face and sinus: Yes face symmetric Throat: Yes other ([place]i score is 3) Eyes Pupils: Equal, round and reactive pupils present Neck Neck: Yes full ROM Resp Effort & Inspection: normal respiratory effort and able to speak in complete sentences Neuro General: patient oriented x3 and moves all extremities Cranial nerves: Yes Facial sensation intact/muscles of mastication intact, Yes Equal, round and reactive pupils present, Yes Normal accommodation reflex present, Yes Nystagmus not present, Yes Normal facial strength present, Yes Midline tongue present, Yes Ability to bilaterally rotate head present and Yes Ability to bilaterally elevate shoulders present Cognition (Neuro): normal cognition Gait exam (Neuro): Normal gait present Motor exam (neuro): 5/5 motor strength present throughout and Normal motor muscle tone present throughout Psych Appearance: grossly normal Speech and movement: Normal speech and movement present Thought process: Normal thought process present Thought content: Normal thought content present Results Reviewed Results Reviewed: Jul 2025 HST in chart AHI-61, PUJA-69%, reviewed with pt in detail. Nocturnal hypoxemia with O2 desaturation <88% for 9min. Will start APAP 5-20cm once urgent titration is completed to determine optimal pressures for therapy. Assessment & Plan Assessment & Plan (1) Excessive daytime sleepiness: Code(s): G47.19 - Other hypersomnia Category: Medical (2) History of deviated nasal septum: Code(s): Z87.09 - Personal history of other diseases of the respiratory system Category: Medical (3) Nocturnal hypoxemia: Code(s): G47.34 - Idiopathic sleep related nonobstructive alveolar hypoventilation Category: Medical Plan HST reviewed with pt. he has severe louise with nocturnal hypoxemia will send for titration. Labs to r/o deficiencies. ENT eval to evaluate for airway polyps/ cysts obstructions due to deviated septum, if not corrected with cpap. f/u in 3 months. Orders: Orders RT PSG in-lab sleep titration Today G47.33 - Obstructive sleep apnea (adult) (pediatric) Patient Instructions: Sleep Hygiene provided: set a scheduled bedtime and wake time to help regulate the circadian rhythm and balance the release of pituitary hormones. Sleep in a dark room, temperatures below 68 degrees, and no devices n bed. Limit caffeinated products 6 hours prior to bed, and limit fluids 2-4 hours prior to bed. Gentle night yoga, diffusing essential oils, and playing soft music can be relaxing. Coding Level of Care Code Est Pt Level 4 (94673) Diagnoses Excessive daytime sleepiness G47.19 History of deviated nasal septum Z87.09 Nocturnal hypoxemia G47.34
[2025-09-20 08:27] VITALS: BP 124/86; PULSE 85; O2SAT 95; BMI 32.5
--- OUTSIDE RECORDS SUMMARY | 2025-09-20 08:40 | XMS_ITS | Clinical Summary ---
Author Organization [facility] Address [address] [place] [address] Care Team Providers Care Buyer Liaison Name Role Phone Josh Bazan MD Primary Care Provider [phone] Allergies No known active allergies Medications amLODIPine (NORVASC) 10 MG tablet 07/15/2025 Active OMEprazole (PriLOSEC) 20 MG capsule 07/18/2025 Active tamsulosin (FLOMAX) 0.4 MG capsule 04/22/2025 Active triamcinolone (NASACORT AQ) 55 MCG/ACT Aerosol nasal sprayIndication s:Deviated nasal septum,Hypertro phy of nasal turbinates 2 sprays into each nostril daily. 1 each 3 07/29/2025 Active Active Problems Problem Noted Date Diagnosed Date Class 1 obesity 07/29/2025 Encounters Date Type Department Care Team Description 07/29/2025 10:00 AM EDT Clinical Support [facility] [address] [address] Grabiel Wing MD Obstructive sleep apnea (adult) (pediatric) (Primary Dx); Deviated nasal septum; Hypertrophy of nasal turbinates; Non-seasonal allergic rhinitis due to pollen from Last 3 Months Social History Tobacco [...] 07/29/2025 10:02 AM EDT Plan of Treatment Health Maintenance Due Date [...] on patient's age to complete this topic Procedures Procedure Name Priority Date/Time Associated Diagnosis Comments SLEEP STUDY Routine 08/23/2025 10:16 AM EDT from Last 3 Months Results * SLEEP STUDY (08/23/2025 10:16 AM EDT) Anatomical Region Laterality Modality Other External Provider MD JEFFRY BURNHAM PROCEDURES Final Res ult from Last 3 Months Insurance [facility] HMO Care Teams Buyer Liaison Relationship Specialty Start Date End Date Josh Bazan MD [address] [place] [address] PCP - General Family Medicine 07/29/25
== END 2025-09-20 09:12 | disposition home or self-care (01) ==
LOC: HO.HSMS 08:24
PROVIDERS: PCP Nurse Practitioner Family; Visit Provider Physician Assistant Medical
DX: G47.19 Other hypersomnia (principal); Z87.09 Personal history of other diseases of the respiratory system; G47.34 Idiopathic sleep related nonobstructive alveolar hypoventilation
CPT/HCPCS: 99214

== ENCOUNTER → 2025-09-25 19:30 | Outpatient (REF) | payer OTHER, SELFPAY ==
--- OUTSIDE RECORDS SUMMARY | 2025-04-20 08:50 | XMS_ITS ---
Author Organization [facility] Address [address] [place] [address] Care Team Providers Care Cone Baker Machine Name Role Phone LONG MARIANO Primary Care Provider Ye Roe Jr [phone] REASON FOR VISIT gerd,screening Medications Medication SIG (Take, Route, Frequency, Duration) Notes Start Date End Date Status Ibuprofen 200 MG Tablet 1 tablet with fo od or milk as needed Orally Three times a day prn Not-Taking/PRN ZyrTEC Allergy 10 MG Tablet 1 tablet Orally Once a day Active amLODIPine Besylate 10 MG Tablet Oral; Duration: 90 Days Active Tamsulosin HCl 0.4 MG Capsule Oral; Duration: 90 Days Active Atorvastatin Calcium 20 MG Tablet Oral; Duration: 90 Days Active Encounters Encounter Location Date Provider Diagnosis [facility] Outpatient [address] [place] [phone] 04/20/2025 Ye Rangel Jr Colon cancer screening Z12.11 and Gastro-esophageal reflux disease without esophagitis K21.9 Assessments Encounter Date Diagnosis (ICD Code) Assessment Notes Treatment Notes Treatment Clinical Notes Section Notes 04/20/2025 Colon cancer screening (ICD-10 - Z12.11) 04/20/2025 Gastro-esophagea l reflux disease without esophagitis (ICD-10 - K21.9) Plan Of Treatment Next Appt Details Provider Name:Ye du Jr, 08/17/2026 01:15:00 PM, [address], [address], [place], [address], Progress Notes * EUGENIA HOWARD WDOB:1960 (65 yo M)Acc No.[id number]:04/20/2025 EGD and COL/MAC Patient: EUGENIA ROBERTO Provider: Marion Rangel MD :1960 A ge:64 Y S ex:Male Date:04/20/2025 Address:[address] [place] [address] Pcp:LONG MARIANO Subjective: * Chief Complaints: * G erd,screening * Medications: T akingZyrTEC Allergy 10 MG Tablet 1 tablet Orally Once a day amLODIPine Besylate 10 MG Tablet Oral Tamsulosin HCl 0.4 MG Capsule Oral Atorvastatin Calcium 20 MG Tablet Oral Taking ZyrTEC Allergy 10 MG Tablet 1 tablet Orally Once a day Taking amLODIPine Besylate 10 MG Tablet Oral Taking Tamsulosin HCl 0.4 MG Capsule Oral Taking Atorvastatin Calcium 20 MG Tablet Oral Not-Taking/PRNIbuprofen 200 MG Tablet 1 tablet with food or milk as needed Orally Three times a day , Notes to Pharmacist: prnNot-Taking/PRN Ibuprofen 200 MG Tablet 1 tablet with food or milk as needed Orally Three times a day , Notes to Pharmacist: prn Assessment: * Assessment: 1. C olon cancer screening - Z12.11 (Primary) 2 . G khadijah-esophageal reflux disease without esophagitis - K21.9 Plan: * Procedure Codes: 4 5378 DIAGNOSTIC [id number] UPPER GI ENDOSCOPY, BIOPSY Billing Information: * Procedure Codes: 69516 DIAGNOSTIC COLONOSCOPY. 38742 UPPER GI ENDOSCOPY, BIOPSY. * The named appointment provid er may or may not be the originator of this progress note, and it is not deemed complete until electronically signed by the appointment provider. Sign off status: Pending * Provider: Marion Rangel MD Date: 0 04/20/2025 Generated for Rehana call/Treva/Karyn on: 11/25/2024 09:12 PM EST
--- OUTSIDE RECORDS SUMMARY | 2025-08-15 05:40 | XMS_ITS ---
Author Organization [facility] Address [address] [place] [address] Care Team Providers Care Creeler Name Role Phone LONG MARIANO Primary Care Provider Ye Roe Jr Unavailable Allergies Allergen (clinical drug ingredient) Drug/Non Drug Allergy documented on EMR Reaction Allergy Type Onset Date Status Information temporarily unavailable anything organic (uncoded) Unknown Allergy Active Information temporarily unavailable cats (uncoded) Unknown Allergy Active REASON FOR VISIT Patient presents today for lópez's esophagus Medications Medication SIG (Take, Route, Frequency, Duration) Notes Start Date End Date Status amLODIPine Besylate 10 MG Tablet Oral; Duration: 90 Days Active Atorvastatin Calcium 20 MG Tablet Oral; Duration: 90 Days Active Tamsulosin HCl 0.4 MG Capsule Oral; Duration: 90 Days Active Ibuprofen 200 MG Tablet 1 tablet with fo od or milk as needed Orally Three times a day prn Not-Taking/PRN Omeprazole 20 MG Capsule Delayed Release 1 capsule 1/2 to 1 hour before morning meal Orally Once a day; Duration: 30 days 04/25/2025 Active ZyrTEC Allergy 10 MG Tablet 1 tablet Orally Once a day Active Social History Social History Additional Details Category Social Info Options Details Miscellaneous: Marital status: 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 Vital Signs Temperature 97.1 degrees Fahrenheit 08/15/20 25 Blood pressure systolic 001 mm Hg 08/15/20 25 Blood pressure diastolic 01 mm Hg 025 Height 71 in 08/15/2025 Weight 233.0 lbs 08/15/2025 BMI 32.49 kg/m2 08/15/2025 Encounters Encounter Location Date Provider Diagnosis [facility] [address] [place] [address] 08/15/2025 Ye Rangel Jr Plan Of Treatment Next Appt Details Provider Name:Ye du Jr, 08/17/2026 01:15:00 PM, [address], [address], [place], [address], Progress Notes * EUGENIA HOWARD WDOB:1960 (65 yo M)Acc No.[id number]:08/15/2025 Progress Notes Patient: EUGENIA ROBERTO W Provider: Marion Rangel MD :1960 A ge:65 Y S ex:Male Date:08/15/2025 Address:[address] [place], [place] [id number] Pcp:LONG MARIANO Subjective: * Chief Complaints: * P atient presents today for lópez's esophagus * Medical History: Colonoscopy02/13, normal, 5-year follow-up for prior history of polyps. Elevated cholesterol Hypertension Hx of kidney stones Enviromental allergies BPH Obstructive sleep apnea Medical History Verified * Surgical History: broken collar bone mouth surgery for broken teeth knee surgery x2 right ankle 2022 Surgical History verified. * Hospitalization/Major Diagno stic Procedure: No Hospitalization Documented. Hospitalization Verified. * Family History: F ather: . M other: alive, diagnosed with HTN (hypertension), Heart disease. F amily History Verified.. paternal aunt c olon cancer no family hx of liver. * Social History: T obacco Use: T obacco Use/Smoking A re you a: nonsmoker. D rugs/Alcohol: A lcohol Screen P oints: 2, Interpretation: Negative. M iscellaneous: M arital status: . 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 Social History Verified. * Medications: T akingZyrTEC Allergy 10 MG Tablet 1 tablet Orally Once a day amLODIPine Besylate 10 MG Tablet Oral Tamsulosin HCl 0.4 MG Capsule Oral Atorvastatin Calcium 20 MG Tablet Oral Omeprazole 20 MG Capsule Delayed Release 1 capsule 1/2 to 1 hour before morning meal Orally Once a day Taking ZyrTEC Allergy 10 MG Tablet 1 tablet Orally Once a day Taking amLODIPine Besylate 10 MG Tablet Oral Taking Tamsulosin HCl 0.4 MG Capsule Oral Taking Atorvastatin Calcium 20 MG Tablet Oral Taking Omeprazole 20 MG Capsule Delayed Release 1 capsule 1/2 to 1 hour before morning meal Orally Once a day Not-Taking/PRNIbuprofen 200 MG Tablet 1 tablet with food or milk as needed Orally Three times a day , Notes to Pharmacist: prnMedication List reviewed and reconciled with the patientNot-Taking/PRN Ibuprofen 200 MG Tablet 1 tablet with food or milk as needed Orally Three times a day , Notes to Pharmacist: prnMedication List reviewed and reconciled with the patient * Allergies: a jeronimo organiccatsyesAllergies Verified. Objective: * Vitals: W t:233.0lbs, Ht: 71 in, BMI:32.49Index, BP:001/01mm Hg, Temp:97.1F, Ht-cm: 180.34 cm, Wt-k.69 kg. Plan: * Preventive Medicine: Counseling: C are goal follow-up plan: A vicente Normal BMI Follow-up D ietary management education, guidance, and counseling, B [place] management provided Y es. * The named appointment provid er may or may not be the originator of this progress note, and it is not deemed complete until electronically signed by the appointment provider. Sign off status: Pending * Provider: Marion Rangel MD Date: Generated for Rehana call/Treva/Debraitting on: 11/25/2024 09:12 PM EST
--- OUTSIDE RECORDS SUMMARY | 2025-09-25 21:12 | XMS_ITS | Patient Health Record ---
Author Organization [facility] Address [address] [place] [address] Care Team Providers Care Assembler Bonding Name Role Phone LONG MARIANO Primary Care Provider Ye Roe Jr Unavailable Allergies Allergen (clinical drug ingredient) Drug/Non Drug Allergy documented on EMR Reaction Allergy Type Onset Date Status Information temporarily unavailable anything organic (uncoded) Unknown Allergy Active Information temporarily unavailable cats (uncoded) Unknown Allergy Active Results Component Value Reference Range Notes Pathology Reviewed date:04/26/2025 01:53:52 PM Interpretation: Performing Lab:[facility], [address] [place] [id number] Notes/Report: Reason For Referral No Information Medications Medication SIG (Take, Route, Frequency, Duration) Notes Start Date End Date Status amLODIPine Besylate 10 MG Tablet Oral; Duration: 90 Days Active ZyrTEC Allergy 10 MG Tablet 1 tablet Orally Once a day Active Atorvastatin Calcium 20 MG Tablet Oral; [...] Unknown 08/11/2019 Administered Influenza Unknown 08/15/2025 Administered Social History Social History Additional Details Category Social Info Options Details Miscellaneous: Marital status: 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 Problems Problem Type SNOMED Code ICD Code Onset Dates Problem Status W/U Status Risk Notes Problem Information temporarily unavailable Colon cancer screening (Z12.11) Active confirmed Problem Information temporarily unavailable Right lower quadrant pain (R10.31) Active confirmed Problem Information temporarily unavailable GERD (gastroesophag eal reflux disease) (K21.9) Active confirmed Vital Signs Temperature 97.1 degrees Fahrenheit 08/15/2025 Blood pressure diastolic 01 mm Hg 08/15/2025 Height 71 in 08/15/2025 Blood pressure systolic 001 mm Hg 08/15/2025 Weight 233.0 lbs 08/15/2025 BMI 32.49 kg/m2 08/15/2025 Encounters Encounter Location Date Provider Diagnosis [facility] Outpatient [address] [place] [phone] 04/20/2025 Ye Rangel Jr Colon cancer screening Z12.11 and Gastro-esophageal reflux disease without esophagitis K21.9 [facility] [address] [phone] 08/15/2025 Ye Rangel Jr [facility] [address] [place] [phone] 04/07/2025 Ye Rangel Jr GERD (gastroesophageal reflux disease) K21.9 and Colon cancer screening Z12.11 [facility] [address] [place] [phone] 04/18/2025 Ye Rangel Jr [facility] [address] [phone] 04/21/2025 Ye Rangel Jr Assessments Encounter Date [...] Provider Name:Ye du Jr, 08/17/2026 01:15:00 PM, [address] [place] [address], [address], [place], [address], Insurance Providers Payer Name Payer Address Payer Phone Subscriber Number Group Number Insured Name Patient Relationship to Insured Coverage Start Date Coverage End Date [employer] [place] [address] [address] [place] [address] [id number] 1 EUEGNIA HOWARD Self - patient is the insured Medical (General) History Medical History History ICD Code Colonoscopy4/20, normal, 5-year follow-u p for prior history of polyps. Elevated cholesterol Hypertension hx of kidney stones enviromental allergies BPH Obstructive sleep apnea Surgical History Surgery Date(Month/Year) broken collar bone mouth surgery for broken teeth knee surgery x2 right ankle 2022
--- OUTSIDE RECORDS SUMMARY | 2025-09-25 21:12 | XMS_ITS | Clinical Summary ---
Author Organization [facility] Address [address] [place] [address] Care Team Providers Care Stamp Pad Maker Name Role Phone Josh Bazan MD Primary [...] Description 07/29/2025 10:00 AM EDT Clinical Support [facility] [address] [phone] Grabiel Wing MD Obstructive sleep [...] Res ult from Last 3 Months Insurance [facility] HMO Care Teams Stamp Pad Maker Relationship Specialty Start Date End Date Josh Bazan MD [address] [place] [address] PCP - General Family Medicine 07/29/25
== END ==
LOC: HO.SL 19:30
PROVIDERS: Visit Provider Physician Assistant Medical
DX: G47.33 Obstructive sleep apnea (adult) (pediatric) (principal)
CPT/HCPCS: 95811

== ENCOUNTER → 2025-09-25 21:10 | Outpatient (BNV) | payer OTHER, SELFPAY | PROVIDERS: Visit Provider Psychiatry & Neurology Neurology | DX: G47.33 Obstructive sleep apnea (adult) (pediatric) (principal) | CPT/HCPCS: 95811 ==